=== PATIENT | male | born 1940 | race Hispanic/Latino ===

== ENCOUNTER → 2024-02-03 | Outpatient (CLI) | payer OTHER, MEDICARE | END | disposition home or self-care (01) | LOC: SHCH 10:40 | PROVIDERS: ATTEND Internal Medicine Cardiovascular Disease | DX: I48.0 Paroxysmal atrial fibrillation (principal) | CPT/HCPCS: 93306 ==

== ENCOUNTER 2024-05-09 09:55 | Inpatient (IN) | payer OTHER, MEDICARE ==
[~2024-05-09] VITALS: Ht 167.6 cm; Wt 79.8 kg
--- NOTE | 2024-05-09 10:24 | ERN ---
ED Note History of Present Illness Stated Complaint: COFFEE GROUND EMESIS Chief Complaint: Coffee Ground Emesis Dictation: This is a case of 83-year-old male with a past medical history of CHF, AFib, obesity, dementia, diabetes mellitus type 2, hypertension, lung disease, stroke who was brought to the ER by the EMS with the complaints of 1 episode of coffee- ground emesis, hypotension, shortness of breath since morning and it is also noted that he had similar symptoms in the past. His current medication list shows apixaban 5 mg b.i.d., Plavix 75 mg p.o. daily. Allergies: Coded Allergies: iodine (Unverified Allergy, Unknown, 05/09/24) Past Medical History Past Medical History: A-Fib, CHF, Dementia, Diabetes-Type II, Hypertension, Lung Disease, Stroke, Other Additional Past Medical Hx: OXYGEN DEPENDENCY Surgical History: Unknown Review of System Dictation Constitutional: No appetite loss, No fevers, chills , No night sweats, No weakness, fatigue Neck: No swelling. pain or stiffness Respiratory: No cough, shortness of breath, wheezing Cardiovascular: No chest pain,, palpitations, dyspnea, No edema Gastrointestinal: No abdominal pain, No nausea, vomiting, No diarrhea, constipation Genitourinary: No painful urination, No blood in urine, No urinary incontinence, No frequency or urgency Musculoskeletal: No joint pain, muscle pain, swelling or stiffness, Neurological: No numbness, tingling, No weakness, tremors or seizures Psychiatric: : No depression, No anxiety, No sleep disturbance Not able to get a correct information from the patient as he is a poor historian secondary to dementia and slightly confused Initial Vital Sign VS Vital Signs Date Time Temp Pulse Resp B/P (MAP) Pulse Ox O2 Delivery O2 Flow Rate FiO2 05/09/24 10:00 97.9 88 26 80/42 100 Nasal Cannula* 2 28 Physical Exam Dictation Physical Exam Dictation VITAL SIGNS: Reviewed. GENERAL APPEARANCE: Alert, oriented x3, no acute distress HEAD AND FACE: Non-traumatic. EYES: PERRL, pink conjunctivas, eyelid no trauma NOSE: No discharge, no bleeding. OROPHARYNX: Mouth normal, tongue pink. Pharynx clear, no erythema. Tonsils no exudates, no abscesses noted. Mucous membrane moist. NECK: Supple, non-tender, no thyromegaly, no masses, no JVD, no bruits. BREAST: Deferred. CHEST: No tenderness, no crepitus, no paradoxical movement, no retractions. LUNGS: Bilateral crackles, well-ventilated, symmetric, wheezing, no rhonchi, no stridor HEART: Regular rate, regular rhythm, no murmur, no gallops. VASCULAR: No peripheral edema. ABDOMEN: Soft, positive bowel sounds, nondistended, no guarding, nontender, no rebound, RECTAL: Deferred. GENITAL: Deferred. NEUROLOGICAL: Normal speech, gross motor function intact, gross sensory function intact. MUSCULOSKELETAL: Neck nontender, back nontender EXTREMITIES: Nontender, full range of motion. SKIN: Color pink, dry, no turgor, no rash LYMPHATICS: Deferred. Results (Laboratory/Radiology) Laboratory/Radiology Laboratory Tests Test 05/09/24 10:27 White Blood Count 11.6 K/uL (4.8-10.8) H Red Blood Count 2.56 MIL/uL (4.50-6.20) L Hemoglobin 7.2 g/dL (14.0-18.0) L Hematocrit 22.7 % (42-54) L Mean Corpuscular Volume 88.7 fL (79-99) Mean Corpuscular Hemoglobin 28.1 pg (27.0-33.0) Mean Corpuscular Hemoglobin Concent 31.7 g/dL (32.0-36.0) L Red Cell Distribution Width 17.8 % (11.0-15.5) H Platelet Count 238 K/uL (130-400) Mean Platelet Volume 11.3 fL (7.5-10.5) H Immature Granulocyte % (Auto) 0.6 % (0-1) Neutrophils (%) (Auto) 86.3 % (40.0-77.0) H Lymphocytes (%) (Auto) 8.3 % (21.0-51.0) L Monocytes (%) (Auto) 4.5 % (3.0-13.0) Eosinophils (%) (Auto) 0.1 % (0.0-8.0) Basophils (%) (Auto) 0.2 % (0.0-5.0) Neutrophils # (Auto) 10.0 K/uL (1.8-7.7) H Lymphocytes # (Auto) 1.0 K/uL (1.0-4.8) Monocytes # (Auto) 0.5 K/uL (0.1-1.0) Eosinophils # (Auto) 0.01 K/uL (0.00-0.70) Basophils # (Auto) 0.02 K/uL (0.00-0.20) Absolute Immature Granulocyte (auto 0.07 K/uL (0-1) Nucleated Red Blood Cells 0.0 % (0.0-0.19) White Cell Morphology Comment See comments Prothrombin Time 14.6 SEC (9.6-11.6) H Prothromb Time International Ratio 1.34 (0.85-1.15) H Activated Partial Thromboplast Time 29.1 SEC (26.3-35.5) Sodium Level 141 mmol/L (136-145) Potassium Level 5.4 mmol/L (3.5-5.1) H Chloride Level 104 mmol/L (101-111) Carbon Dioxide Level 24 mmol/L (21-32) Blood Urea Nitrogen 59 mg/dL (7-18) H Creatinine 2.9 mg/dL (0.5-1.3) H Glomerular Filtration Rate Calc 21 mL/min (>90) Random Glucose 151 mg/dL (70-105) H Total Calcium 9.0 mg/dL (8.5-10.1) Total Bilirubin 0.6 mg/dL (0.2-1.0) Aspartate Amino Transf (AST/SGOT) 77 U/L (10-37) H Alanine Aminotransferase (ALT/SGPT) 47 U/L (12-78) Alkaline Phosphatase 141 U/L (50-136) H Total Creatine Kinase 171 U/L (21-232) Troponin I High Sensitivity 1870 ng/L (4-75) *H Total Protein 7.3 g/dL (6.0-8.3) Albumin 2.7 g/dL (3.5-5.0) L EKG Comment: PROCEDURE: EKG - 12 LEAD EKG TRACING- TECHNICAL [facility] Test Date: 2024-05-09 Test Time: 10:31:57 Pat Name: HALLIE BERG Department: [facility] Room: Gender: Male 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 There are bilateral pulmonary infiltrates. Poststernotomy changes are seen. The heart is enlarged. Degenerative changes of the thoracolumbar spine are present. Aortic calcifications are seen. IMPRESSION: 1. Bilateral pulmonary infiltrates. CT Scan Comment: PROCEDURE: ABD PEL WO - CT ABDOMEN/PELVIS W/O CONTRAST CT ABDOMEN/PELVIS W/O CONTRAST HISTORY: Hematemesis COMPARISON: None TECHNIQUE: Multiple sequential axial images of the abdomen and pelvis were obtained from the dome of the diaphragm through symphysis pubis. Patient was not given contrast through intravenous route. Oral contrast was not given. FINDINGS: There are bilateral pleural effusions with compressive atelectasis with left worse than right. Coronary arterial calcifications are seen. There is no evidence of parenchymal disease or pulmonary nodule of the visualized lower lungs. Degenerative changes of the thoracolumbar spine are present. The heart is not enlarged. Liver is enlarged with fatty changes measuring 18.5 cm. Gastric distention is seen. There is small bowel dilatation with fluid-filled. There is diverticulosis. The liver, spleen, adrenal glands and pancreas are unremarkable. There is no evidence of hydronephrosis bilaterally. No evidence of renal stone is seen. Fecal material is seen in the colon. There are normal size retroperitoneal and mesenteric lymph nodes. No ascites is seen. Atherosclerotic changes are present. Appendix is not well visualized. Pelvic sidewalls are symmetric bilaterally. Bladder is poorly distended. IMPRESSION: 1. Bilateral pleural effusions with compressive atelectasis. Gastric distention with small bowel dilatation with fluid-filled may be related to enteritis. Large amount of fecal material is seen in the colon. There is diverticulosis. ED Course ED Course Orders Procedure Category Date Status Time Cbc With Differential LAB 05/09/24 Complete 10:12 Comprehensive LAB 05/09/24 Complete Metabolic Panel 10:12 12 Lead Ekg Tracing- EKG 05/09/24 Complete Technical 10:12 Chest 1vw RAD 05/09/24 Resulted 10:12 Cardiac Panel LAB 05/09/24 Complete 10:12 Pt And Ptt LAB 05/09/24 Complete 10:12 Ct Abdomen/Pelvis W/O CT 05/09/24 Resulted Contrast 10:16 0.9%Nacl 1000ml (Ns PHA 05/09/24 Complete 1000ml) 10:30 Pantoprazole 40mg Inj PHA 05/09/24 Complete (Protonix 40mg Inj 11:00 Blood Cult DARCIE 05/09/24 In Process 10:40 Ceftriaxone 1g Vial PHA 05/09/24 Complete (Rocephine 1g Inj) 11:00 0.9%Nacl 1000ml (Ns PHA 05/09/24 Complete 1000ml) 11:30 Norepinephrin 4mg/Ns PHA 05/09/24 In Process 250ml (Levophed 4mg 11:30 Urinalysis Profile LAB 05/09/24 Logged 11:30 Ipratropium/Albuterol PHA 05/09/24 Complete Neb (Duoneb) 12:00 Current Medications Medications (Trade) Dose Ordered Sig/Rubi Route PRN Reason Start Time Stop Time Status Last Admin Dose Admin Albuterol (DUOneb) 1 UDVIAL ONCE ONCE IH 05/09/24 12:00 05/09/24 12:01 DC 05/09/24 11:51 Ceftriaxone Sodium (ROCEphine 1G INJ) 1 gm ONCE ONCE IVPB 05/09/24 11:00 05/09/24 11:01 DC 05/09/24 11:21 Norepinephrine 250 ml @ 0 mls/hr PROTOCOL IV 05/09/24 11:30 06/08/24 11:29 05/09/24 11:40 Pantoprazole Sodium (PROTonix 40MG INJ) 40 mg ONCE ONCE IVP 05/09/24 11:00 05/09/24 11:01 DC 05/09/24 11:21 Sodium Chloride 1,000 ml @ 0 mls/hr ONCE ONCE IV 05/09/24 10:30 05/09/24 10:31 DC 05/09/24 11:05 Sodium Chloride 1,000 ml @ 0 mls/hr ONCE ONCE IV 05/09/24 11:30 05/09/24 11:27 DC 05/09/24 11:19 Vital Signs Date Time Temp Pulse Resp B/P (MAP) Pulse Ox O2 Delivery O2 Flow Rate FiO2 05/09/24 11:50 104 24 05/09/24 11:40 87/45 05/09/24 11:07 97.9 88 26 88/36 100 Nasal Cannula* 2 28 05/09/24 10:00 97.9 88 26 80/42 100 Nasal Cannula* 2 28 Medical Decision Making [facility] MDM Potential differential diagnoses include: Peptic ulcer disease Esophageal viruses Angiodysplasia Heart failure Coagulopathy Liver cirrhosis Assessment: We will order CBC to rule any anemia, infections and to evaluate the overall health of the patient. CMP was ordered in order to assess various electrolytes, kidney function, liver function ,protein levels and blood glucose levels, CT abdomen /pelvis, chest x-ray, EKG. We will give 1 L NS bolus and Levophed for hypotension. We will start the patient on DuoNeb for hyperkalemia. I will re-evaluate the patient after treatment and diagnostic exams have returned to determine whether they require further testing, can be safely di scharged home, or need admission for further treatment and evaluation. Given the social determinants of health affecting care, including literacy, access to medical care, prescription drug management, and syxm-[id number] drugs, I will ensure that treatment plans are tailored accordingly. Revaluation : Patient is drowsy. Blood pressure increased from 80/30s to 100/50s on Levophed. Labs WBC 11.6, hemoglobin 7.2, potassium 5.4, BUN 59, creatinine 2.9. Troponin levels are elevated at 1870. Chest x-ray resulted in bilateral pulmonary infiltrates and CT abdomen/pelvis resulted in Bilateral pleural effusions with compressive atelectasis. Gastric distention with small bowel dilatation with fluid-filled may be related to enteritis. Large amount of fecal material is seen in the colon. There is diverticulosis. Disposition: Patient is being admitted for further evaluation and treatment in view of suspected GI bleed, elevated troponin levels, hypotension, bilateral pleural effusions with compressive atelectasis. DX & DISP Disposition: Inpatient Departure Impression: Primary Impression: GI bleed Additional Impressions: Bilateral pleural effusion, Anemia, Elevated troponin Critical Time: 30 minutes Condition: Stable Referrals: SHARMAINE JIANG MD (PCP) ATTESTATION BY PHYSICIAN I have seen and examined the patient. I reviewed the documentation, medical decision making, and treatment plan as noted by the resident above. I agree with the findings and plan of care. YOANA PENNINGTON MD, MD May 09, 2024 10:24
--- NOTE | 2024-05-09 10:36 | EKG ---
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
[2024-05-09 10:45] LABS: BASOPHILS # (AUTO) 0.02 K/uL (0.00-0.20); BASOPHILS % (AUTO) 0.2 % (0.0-5.0); EOSINOPHILS # (AUTO) 0.01 K/uL (0.00-0.70); EOSINOPHILS % (AUTO) 0.1 % (0.0-8.0); HEMATOCRIT 22.7 % (42-54); IMMATURE GRANULOCYTE ABSOLUTE 0.07 K/uL (0-1); LYMPHOCYTES % (AUTO) 8.3 % (21.0-51.0); MEAN CORPUSCULAR HEMOGLOBIN 28.1 pg (27.0-33.0); MEAN CORPUSCULAR HGB CONC 31.7 g/dL (32.0-36.0); MEAN CORPUSCULAR VOLUME 88.7 fL (79-99); MONOCYTES # (AUTO) 0.5 K/uL (0.1-1.0); MONOCYTES % (AUTO) 4.5 % (3.0-13.0); NEUTROPHILS % (AUTO) 86.3 % (40.0-77.0); PLATELET COUNT (AUTO) 238 K/uL (130-400); RED BLOOD CELL COUNT(AUTO) 2.56 MIL/uL (4.50-6.20); RED CELL DISTRIBUTION WIDTH 17.8 % (11.0-15.5); WHITE BLOOD COUNT (AUTO) 11.6 K/uL (4.8-10.8)
--- NOTE | 2024-05-09 10:46 | HMCIMG ---
CHEST 1VW HISTORY: Shortness of breath COMPARISON: None FINDINGS: A frontal projection of the chest was obtained. There are bilateral pulmonary infiltrates. Poststernotomy changes are seen. The heart is enlarged. Degenerative changes of the thoracolumbar spine are present. Aortic calcifications are seen. IMPRESSION: 1. Bilateral pulmonary infiltrates.
[2024-05-09 10:58] LABS: INR 1.34 (0.85-1.15); PROTHROMBIN TIME 14.6 SEC (9.6-11.6)
[2024-05-09 10:59] LABS: PARTIAL THROMBOPLASTIN TIME 29.1 SEC (26.3-35.5)
[2024-05-09] MEDS: 0.9%NACL 1000ML 1,000 ML IV ONE ×2 (11:05→11:19)
[2024-05-09 11:07] LABS: ALBUMIN 2.7 g/dL (3.5-5.0); BILIRUBIN,TOTAL 0.6 mg/dL (0.2-1.0); CREATININE 2.9 mg/dL (0.5-1.3); POTASSIUM 5.4 mmol/L (3.5-5.1); TOTAL PROTEIN, SERUM 7.3 g/dL (6.0-8.3)
[2024-05-09] MEDS: cefTRIAXone 1G VIAL IVPB ONE (11:21)
[2024-05-09] MEDS: PANTOPrazole 40 MG/VIAL IVP ONE (11:21)
--- NOTE | 2024-05-09 11:33 | HMCIMG ---
CT ABDOMEN/PELVIS W/O CONTRAST HISTORY: Hematemesis COMPARISON: None TECHNIQUE: Multiple sequential axial images of the abdomen and pelvis were obtained from the dome of the diaphragm through symphysis pubis. Patient was not given contrast through intravenous route. Oral contrast was not given. FINDINGS: There are bilateral pleural effusions with compressive atelectasis with left worse than right. Coronary arterial calcifications are seen. There is no evidence of parenchymal disease or pulmonary nodule of the visualized lower lungs. Degenerative changes of the thoracolumbar spine are present. The heart is not enlarged. Liver is enlarged with fatty changes measuring 18.5 cm. Gastric distention is seen. There is small bowel dilatation with fluid-filled. There is diverticulosis. The liver, spleen, adrenal glands and pancreas are unremarkable. There is no evidence of hydronephrosis bilaterally. No evidence of renal stone is seen. Fecal material is seen in the colon. There are normal size retroperitoneal and mesenteric lymph nodes. No ascites is seen. Atherosclerotic changes are present. Appendix is not well visualized. Pelvic sidewalls are symmetric bilaterally. Bladder is poorly distended. IMPRESSION: 1. Bilateral pleural effusions with compressive atelectasis. Gastric distention with small bowel dilatation with fluid-filled may be related to enteritis. Large amount of fecal material is seen in the colon. There is diverticulosis. CT was performed with one or more following dose reduction techniques: automated exposure control, adjustment of the mA and kv according to patient's size, or use of a iterative reconstruction technique.
[2024-05-09] MEDS: NOREPINEPHRIN 4MG/NS 250ML 250 ML IV SCH (11:40)
[2024-05-09 11:50] VITALS: PULSE 104; RESP 24
[2024-05-09] MEDS: IpraTROPium/alBUTERol SULFATE 3 ML SOLUTION IH ONE (11:51)
--- NOTE | 2024-05-09 12:54 | NUR ---
NEXT OF KIN SANJEEV NELSONNIZ CONTACTED TO VERY DNR STATUS. NEXT OF KIN VERBALIZES FULL CODE STATUS. PHONE CALL VERIFIED WITH AMBER CABRERA RN.
[2024-05-09] MEDS ORDERED: KETO200T11 PO (13:23)
[2024-05-09] MEDS ORDERED: NIFE-79 PO (13:23)
[2024-05-09] MEDS ORDERED: COLL30OI TP (13:23)
[2024-05-09] MEDS ORDERED: FERS325 PO (13:23)
[2024-05-09] MEDS ORDERED: CLOT15CR23 TP (13:23)
[2024-05-09] MEDS ORDERED: NYST200P MC (13:23)
[2024-05-09] MEDS ORDERED: ASPI-1197 PO (13:23)
[2024-05-09] MEDS ORDERED: DOCU100C33 PO (13:23)
[2024-05-09] MEDS: octREOtide aceTATe 1,250 MCG in 0.9% NACL 250ML 250 ML IV SCH (13:57)
[2024-05-09] MEDS: DEXTROSE 5 %-0.45 % NACL 1,000 ML IV SCH (14:19)
--- NOTE | 2024-05-09 15:20 | NUR ---
CONSENT FOR BLOOD ADMINISTRATION PROVIDED VIA TELEPHONE BY SANJEEV BERG. WITNESS PRESENT SCAR DUNCAN
[2024-05-09 15:26] LABS: HEMATOCRIT 21.3 % (42-54)
[2024-05-09] MEDS: INSULIN humuLIN R 100 UNIT/ML 3ML SQ SCH (16:30)
--- NOTE | 2024-05-09 17:08 | CONS ---
[facility] CONSULTATION NOTE Date Patient Seen: May 09, 2024 Time of Visit: 17:08 Supervising Physician: Dr. London Reason for Consultation: GI bleed/hypotension Primary Care Physician: Dr. Sylvia Lane Outpatient Specialists: Parking Control Officer: Angel Diaz MD Inpatient Consults: Cardiology PROBLEM LIST: Acute GI bleed POA, probably secondary to oral anticoagulation therapy. . Acute blood loss anemia Acute sepsis from unknown source POA. Cardiogenic shock POA. Acute constipation POA. Acute on chronic combined systolic and diastolic congestive heart failure Paroxysmal atrial fibrillation on chronic anticoagulation with Eliquis, to be on hold Hyperkalemia. HTN HLD DM2 CKD stage IIIB CAD s/p CABG in the remote past Recurrent CVAs JACK hx R CEA Pulmonary hypertension Dementia HPI: This is a 83-year-old male patient who is not a good historian due to his current condition, age in mental status. He resides at a local nursing home facility [facility]. The patient has past medical history that is significant for HTN, HLD, DM2, CKD stage IIIB, CAD s/p CABG ecurrent CVA with new onset right side weakness, JACK hx R CEA, Paroxysmal atrial fibrillation on chronic anticoagulation with Eliquis, chronic combined systolic/diastolic heart failure, NSTEMI, and dementia. The patient was sent from the nursing home facility via EMS due to report of coffee-ground emesis and abdominal discomfort. Upon entry to the emergency department, vital signs was significant for hypotension systolic of 80/42 that had started since the morning. Of note, the patient is on anticoagulation therapy with apixaban and antiplatelet therapy with Plavix which may have been the culprit. ED workup showed laboratory data indicating a WBC of 11.6, H&H 7.24/22.7 and a platelet count of 238. Chemistry panel was significant for a elevated potassium of 5.4, BUN 59, creatinine of 2.9 and a GFR of 21. Keaton troponin of 1870 and a BNP of 1140. Imaging of the chest showed bilateral pulmonary infiltrates and abdomen showed bilateral pleural effusions with compressive atelectasis. Gastric distention with small bowel dilatation and fluid filled may be related to enteritis. There was large amount of fecal material seen in the colon and there was also presence of diverticulosis. Because of the above findings, the patient was admitted for further inpatient evaluation and management of his condition. BIS grease remover was consulted due to the GI bleed with subsequent hypotension requiring vasopressor therapy. PAST MEDICAL HX: see above PAST SURGICAL HX: Appendectomy Balloon angioplasty to the IRS within the right M2 segment Cerebral angiogram Intracranial stenting Right carotid endarterectomy Coronary artery bypass grafting in 2009 SOCIAL HISTORY: No tobacco, ETOH, or illicit drug use. SNF resident. Coded Allergies: iodine (Unverified Allergy, Unknown, 05/09/24) REVIEW OF SYSTEMS: 12 point ROS reviewed with patient. Pertinent positives mentioned above. Otherwise negative. PHYSICAL EXAM: GENERAL: alert, weak, awake oriented x 3 HEENT: EOMI, Sclera non icteric, moist mucosa NECK: Supple, no JVD, trachea midline LUNGS: Diminished lung sounds. No wheezes HEART: Regular rate and rhythm. Normal S1 and S2, without murmurs ABD: Abdomen soft, nontender. Bowel sounds present EXT: No clubbing cyanosis or edema NEURO: Alert and oriented to person, able to follow simple commands Vital Signs (last 8hr) Date Time Temp Pulse Resp B/P (MAP) Pulse Ox O2 Delivery O2 Flow Rate FiO2 05/09/24 16:00 97.9 100 18 103/46 Nasal Cannula* 2 28 05/09/24 15:00 100 18 93/49 Nasal Cannula* 2 28 05/09/24 14:00 98 18 112/46 98 Nasal Cannula* 2 28 05/09/24 13:45 109 18 110/45 Nasal Cannula* 2 28 05/09/24 13:30 108 18 110/51 Nasal Cannula* 2 28 05/09/24 13:00 108 18 105/48 Nasal Cannula* 2 28 05/09/24 12:25 106 18 105/53 Nasal Cannula* 2 28 05/09/24 12:10 106 24 103/50 Nasal Cannula* 2 28 05/09/24 11:55 97.9 95 24 105/45 Nasal Cannula* 2 28 05/09/24 11:50 104 24 05/09/24 11:40 82 26 87/45 100 Nasal Cannula* 2 28 05/09/24 11:40 87/45 05/09/24 11:07 97.9 88 26 88/36 100 Nasal Cannula* 2 28 05/09/24 10:00 97.9 88 26 80/42 100 Nasal Cannula* 2 28 LABS: Hematology Labs: Test 05/09/24 15:18 05/09/24 10:27 Range/Units Hemoglobin 6.6 *L 14.0-18.0 g/dL Hematocrit 21.3 L 42-54 % White Blood Count 11.6 H 4.8-10.8 K/uL Red Blood Count 2.56 L 4.50-6.20 MIL/uL Mean Corpuscular Volume 88.7 79-99 fL Mean Corpuscular Hemoglobin 28.1 27.0-33.0 pg Mean Corpuscular Hemoglobin Concent 31.7 L 32.0-36.0 g/dL Red Cell Distribution Width 17.8 H 11.0-15.5 % Platelet Count 238 130-400 K/uL Mean Platelet Volume 11.3 H 7.5-10.5 fL Immature Granulocyte % (Auto) 0.6 0-1 % Neutrophils (%) (Auto) 86.3 H 40.0-77.0 % Lymphocytes (%) (Auto) 8.3 L 21.0-51.0 % Monocytes (%) (Auto) 4.5 3.0-13.0 % Eosinophils (%) (Auto) 0.1 0.0-8.0 % Basophils (%) (Auto) 0.2 0.0-5.0 % Neutrophils # (Auto) 10.0 H 1.8-7.7 K/uL Lymphocytes # (Auto) 1.0 1.0-4.8 K/uL Monocytes # (Auto) 0.5 0.1-1.0 K/uL Eosinophils # (Auto) 0.01 0.00-0.70 K/uL Basophils # (Auto) 0.02 0.00-0.20 K/uL Absolute Immature Granulocyte (auto 0.07 0-1 K/uL Nucleated Red Blood Cells 0.0 0.0-0.19 % White Cell Morphology Comment See comments Chemistry Labs: Test 05/09/24 15:18 05/09/24 10:27 Range/Units Troponin I High Sensitivity 3253 *H 4-75 ng/L B-Type Natriuretic Peptide 1140 H 0-100 pg/mL Sodium Level 141 136-145 mmol/L Potassium Level 5.4 H 3.5-5.1 mmol/L Chloride Level 104 101-111 mmol/L Carbon Dioxide Level 24 21-32 mmol/L Blood Urea Nitrogen 59 H 7-18 mg/dL Creatinine 2.9 H 0.5-1.3 mg/dL Glomerular Filtration Rate Calc 21 >90 mL/min Random Glucose 151 H 70-105 mg/dL Total Calcium 9.0 8.5-10.1 mg/dL Total Bilirubin 0.6 0.2-1.0 mg/dL Aspartate Amino Transf (AST/SGOT) 77 H 10-37 U/L Alanine Aminotransferase (ALT/SGPT) 47 12-78 U/L Alkaline Phosphatase 141 H 50-136 U/L Total Creatine Kinase 171 21-232 U/L Total Protein 7.3 6.0-8.3 g/dL Albumin 2.7 L 3.5-5.0 g/dL Coagulation Labs: Test 05/09/24 10:27 Range/Units Prothrombin Time 14.6 H 9.6-11.6 SEC Prothromb Time International Ratio 1.34 H 0.85-1.15 Activated Partial Thromboplast Time 29.1 26.3-35.5 SEC DIAGNOSTICS / RADIOLOGY RESULTS: [ ] PLAN The patient was admitted and BAL was consulted for ICU upgrade. The patient was started on Levophed. In the emergency department, the patient did receive fluid resuscitation with IV NS 1 L bolus. The patient did receive a dose of IV Rocephin. I am going to continue with IV cefepime, we will request blood cultures x2. We will request a MRSA nasal swab. We will order additional vasopressor therapy if hypotension persists. We will monitor the H&H and we will transfuse as necessary. Orders are in place for occult blood in stool. The patient will remain nothing by mouth. We will monitor the trend and maintain map above 65. We will follow the troponins x2 more sets. Cardiology consult is in place as well as Nephrology consultation. Patient was started on antibiotic therapy. Going to repeat surveillance labs in the morning. We will continue provide general supportive care, GI and DVT prophylaxis. Further orders per attending MD and hospital course. NEURO: Minimize central acting medications as possible. Fall Precautions. Well lighted room through the day and minimize interruptions through the night to prevent acute delirium. PULMONARY: Supplemental 02 as needed Titrate Fio2 to keep Spo2 > or = 90% DuoNebs and CPT as needed IS hourly while awake for pulmonary hygiene Out of bed to chair as tolerated CARDIOVASCULAR: Follow hemodynamics. Titrate vasopressor to keep MAP >65 or systolic blood pressure >95mmHg DIPS: Levophed LINES: Peripheral IVs GI & NUTRITION: Continue nutritional support Aspirations precautions Prokinetic agents and laxatives as needed KIDNEYS & ELECTROLYTES: Strict monitoring of intake and output Daily weights Avoid nephrotoxic agents Monitor electrolytes and replace as needed Goal urine output of 30mL/hr or 0.5mL/kg/hr Urine output: [ ] Fluid Balance: [ ] ENDOCRINE: Maintain blood glucose between 100-180 at all times. Insulin sliding scale for blood glucose management INFECTIOUS DISEASE: Trend temperature. Zapata-culture if febrile. Micro: Blood cultures to be sent and pending UA. Antibiotics: Cefepime 1 g daily HEMATOLOGY & COAGULATION: Monitor H&H. Keep Hgb > 7 Transfuse 1 unit of PRBC for Hgb < 7 Transfuse 1 pack of platelets of platelets < 20, 000 Watch for any signs and symptoms of bleeding SKIN: Pressure ulcer prevention per facility protocol Rehab: PT/OT once acute phase has been stabilized. Prophylaxis: GI: Protonix DVT: Not a candidate for systemic anticoagulation Code Status: Full Resuscitation Disposition: ICU Case was discussed and seen with my supervising physician. The above plan was formulated and agreed upon. Total critical care time: 35 min CARLOS MANUEL NOE NP May 09, 2024 17:08 MARGARITA BUNCH MD May 10, 2024 14:29
--- NOTE | 2024-05-09 19:31 | NUR ---
PATIENT IS BEING RUDE AND VERBALLY ABUSIVE TOWARDS STAFFS. REFUSED LARA CATHETER INSERTION.
--- NOTE | 2024-05-09 19:56 | NUR ---
CRITICAL CARE CONSULT DONE BY DIPAK ABBOTT, SPOKEN TO JUNIOR VIA PHONE
[2024-05-09] MEDS: PANTOPrazole 40 MG/VIAL IVP SCH (20:01)
--- NOTE | 2024-05-09 20:23 | CONS ---
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 (08/06/2018), initially treated with IV TPA, post-thrombolytics cerebral angiogram identified severe stenosis of the middle cerebral artery M2 segment, s/p intracerebral angioplasty with [place] balloon (1.5mm x 15 mm) and intracerebral stenting with Wingspan stent (2.5 mm x 15 mm) to right inferior MCA M2 segment (08/10/2018), TIA in September 2019, JACK hx R CEA, paroxysmal atrial fibrillation on chronic anticoagulation with Eliquis, hospitalization in 01/2024 at [facility] for hematemesis, 2D echo on 04/09/2024 demonstrated an EF of 55%, moderately dilated left atrium, moderate MR, and RSVP of 42 mmHg, recent hospitalization at [facility] on 04/18/2024 for acute on chronic combined systolic and diastolic heart failure and NSTEMI which was medically managed due to debilitated state and dementia who presented to the ED by EMS with complaints of one episode of coffee-ground emesis, nausea and abdominal discomfort. The patient was hypotensive on admission with a blood pressure of 80/42 mmHg and was started on a norepinephrine drip. Chest x-ray demonstrated bilateral pulmonary infiltrates. CT of the abdomen demonstrated gastric distention distention with small bowel dilatation. Cardiology has been consulted for elevated troponin. EKG on admission demonstrated atrial fibrillation with a heart rate of 85bpm, ST depressions in V2-4, and old inferior infarct. The patient is a poor historian. HPI has been obtained from medical and clinic records. The patient currently denies chest pain, chest pressure, or palpitations, but admits to abdominal discomfort. Troponin 1870 and 3253. BNP 1140. Significant laboratories: WBC of 11.6, hemoglobin 7.2, hematocrit 22.7, BUN 59, creatinine 2.9, GFR 21, Potassium 5.4, AST 77, alkaline phosphatase 141, Drop in hemoglobin to 6.6 and hematocrit of 21.3. Past Medical History: As per HPI and summarized below Past Surgical History: Appendectomy Intracranial stenting : (Wingspan 2.5x15 mm) in the right inferior MCA M2 segment done on 08/10/2018, s/p balloon angioplasty to the IRS within the right M2 segment done on 09/07/2019, s/p cerebral angiogram done on 01/30/2020 which identified a patent stent within the right M2 and > 80% stenosis in the left pericallosal artery Right carotid endarterectomy Coronary artery bypass grafting in 2008 Family History: Noncontributory Social History: The patient is a resident at [facility]. Habits: snf resident there is no note of alcohol illicit drug or tobacco use. Home Meds: Aspirin 81 mg daily Nifedipine 60 mg daily Ferrous sulfate 325 mg daily Docusate sodium 100 mg daily Ketoconazole 200 mg daily Clotrimazole 1% topical apply daily Santyl apply daily Nystatin powder b.i.d. Current Meds: Current Medications Medications Dose Ordered Sig/Rubi Start Time Stop Time Status Last Admin Norepinephrine 250 ml @ 0 mls/hr PROTOCOL 05/09/24 11:30 06/08/24 11:29 05/09/24 11:40 Insulin Human Regular INSULIN SLIDING SCAL... ACHS 05/09/24 16:30 06/08/24 16:29 Octreotide Acetate 1250 mcg/ Sodium Chloride 250 ml @ 0 mls/hr PROTOCOL 05/09/24 12:30 06/08/24 12:29 05/09/24 14:09 Pantoprazole Sodium 40 mg BID 05/09/24 21:00 06/08/24 20:59 Dextrose/Sodium Chloride 1,000 ml @ 50 mls/hr Q20H 05/09/24 12:30 06/08/24 12:29 05/09/24 14:19 Review of Systems: Unable to obtain a review of system as the patient has dementia Physical Examination: GENERAL: No acute distress. HEAD: Normal with no signs of head trauma. EYES: PERRLA, EOMI, conjunctiva and sclera normal. ENT: Hearing grossly intact, normal oropharynx. NECK: Supple without JVD. There is no tenderness, lymphadenopathy, or masses. No thyromegaly. Normal carotid upstrokes without bruits. LUNGS: Diminished bases heard anteriorly. HEART: Normal rate and rhythm. Normal S1 and S2. Left foot dorsal region with dressing. 3/6 systolic ejection murmur heard at the left 5th intercostal space VASC: Unable to palpate bilateral DP pulses. ABD: Bowel sounds normal, soft, nontender, no masses, no organomegaly. No audible bruits. : Not examined LYMPH: No lymphadenopathy noted. EXT: No clubbing, cyanosis or edema. SKIN: No rashes or lesions noted. NEURO: Awake and alert. Poor memory. Vital Signs (last 8hr) Date Time Temp Pulse Resp B/P (MAP) Pulse Ox O2 Delivery O2 Flow Rate FiO2 05/09/24 18:45 98.1 92 25 110/40 Nasal Cannula* 2 05/09/24 18:15 98.1 103 20 109/49 Nasal Cannula* 2 28 05/09/24 18:00 98.1 106 20 106/51 Nasal Cannula* 2 05/09/24 17:45 98.1 106 15 107/57 Nasal Cannula* 2 05/09/24 17:30 98.2 109 15 113/49 98 Nasal Cannula* 2 05/09/24 17:00 100 18 92/48 Nasal Cannula* 2 05/09/24 16:30 106 18 92/48 Nasal Cannula* 2 05/09/24 16:15 108 18 90/46 Nasal Cannula* 2 05/09/24 16:00 97.9 100 18 98/48 Nasal Cannula* 2 05/09/24 15:00 100 18 93/49 Nasal Cannula* 2 05/09/24 14:00 98 18 112/46 98 Nasal Cannula* 2 05/09/24 13:45 109 18 110/45 Nasal Cannula* 2 05/09/24 13:30 108 18 110/51 Nasal Cannula* 2 28 05/09/24 13:00 108 18 105/48 Nasal Cannula* 2 28 05/09/24 12:25 106 18 105/53 Nasal Cannula* 2 05/09/24 12:10 106 24 103/50 Nasal Cannula* 2 05/09/24 11:55 97.9 95 24 105/45 Nasal Cannula* 2 05/09/24 11:50 104 24 05/09/24 11:40 82 26 87/45 100 Nasal Cannula* 2 05/09/24 11:40 87/45 Laboratory: Hematology Labs: Test 05/09/24 15:18 05/09/24 10:27 Range/Units Hemoglobin 6.6 *L 14.0-18.0 g/dL Hematocrit 21.3 L 42-54 % White Blood Count 11.6 H 4.8-10.8 K/uL Red Blood Count 2.56 L 4.50-6.20 MIL/uL Mean Corpuscular Volume 88.7 79-99 fL Mean Corpuscular Hemoglobin 28.1 27.0-33.0 pg Mean Corpuscular Hemoglobin Concent 31.7 L 32.0-36.0 g/dL Red Cell Distribution Width 17.8 H 11.0-15.5 % Platelet Count 238 130-400 K/uL Mean Platelet Volume 11.3 H 7.5-10.5 fL Immature Granulocyte % (Auto) 0.6 0-1 % Neutrophils (%) (Auto) 86.3 H 40.0-77.0 % Lymphocytes (%) (Auto) 8.3 L 21.0-51.0 % Monocytes (%) (Auto) 4.5 3.0-13.0 % Eosinophils (%) (Auto) 0.1 0.0-8.0 % Basophils (%) (Auto) 0.2 0.0-5.0 % Neutrophils # (Auto) 10.0 H 1.8-7.7 K/uL Lymphocytes # (Auto) 1.0 1.0-4.8 K/uL Monocytes # (Auto) 0.5 0.1-1.0 K/uL Eosinophils # (Auto) 0.01 0.00-0.70 K/uL Basophils # (Auto) 0.02 0.00-0.20 K/uL Absolute Immature Granulocyte (auto 0.07 0-1 K/uL Nucleated Red Blood Cells 0.0 0.0-0.19 % White Cell Morphology Comment See comments Chemistry Labs: Test 05/09/24 15:18 05/09/24 10:27 Range/Units Troponin I High Sensitivity 3253 *H 4-75 ng/L B-Type Natriuretic Peptide 1140 H 0-100 pg/mL Sodium Level 141 136-145 mmol/L Potassium Level 5.4 H 3.5-5.1 mmol/L Chloride Level 104 101-111 mmol/L Carbon Dioxide Level 24 21-32 mmol/L Blood Urea Nitrogen 59 H 7-18 mg/dL Creatinine 2.9 H 0.5-1.3 mg/dL Glomerular Filtration Rate Calc 21 >90 mL/min Random Glucose 151 H 70-105 mg/dL Total Calcium 9.0 8.5-10.1 mg/dL Total Bilirubin 0.6 0.2-1.0 mg/dL Aspartate Amino Transf (AST/SGOT) 77 H 10-37 U/L Alanine Aminotransferase (ALT/SGPT) 47 12-78 U/L Alkaline Phosphatase 141 H 50-136 U/L Total Creatine Kinase 171 21-232 U/L Total Protein 7.3 6.0-8.3 g/dL Albumin 2.7 L 3.5-5.0 g/dL Coagulation Labs: Test 05/09/24 10:27 Range/Units Prothrombin Time 14.6 H 9.6-11.6 SEC Prothromb Time International Ratio 1.34 H 0.85-1.15 Activated Partial Thromboplast Time 29.1 26.3-35.5 SEC Diagnostics / Radiology: Impression and Plan: NSTEMI, Type II CA Acute on chronic combined systolic and diastolic congestive heart failure Anemia, Eliquis on hold Small bowel dilatation Paroxysmal atrial fibrillation on chronic anticoagulation with Eliquis HTN HLD DM2 CKD stage IIIB CAD s/p CABG (approximately [id number] in [place]) CVAs, TIA, intracranial stenting JAKC hx R CEA Pulmonary hypertension Dementia Wheelchair-bound NSTEMI type 2 CA EKG on admission demonstrated atrial fibrillation with a heart rate of 85bpm, ST depressions in V2-4, and old inferior infarct Troponin 1870 and 3253 2D echo on 04/09/2024 demonstrated an EF of 55%, moderately dilated left atrium, moderate MR, and RSVP of 42 mmHg Recent hospitalization at [facility] on 04/18/2024 for acute on chronic combined systolic and diastolic heart failure and NSTEMI which was medically managed due to debilitated state and dementia -The patient is not a candidate for beta raeann therapy due to need for vasopressor support -The patient is not a candidate for ACS treatment such as a Heparin drip, aspirin, or antiplatelet therapy due to anemia with a Hgb of 6.6 and Hct of 21.3 -LFTs in the AM, if normalized initiate statin therapy -EKG in AM -Obtain 2D Echo to evaluate LV function -No plans for ischemic evaluation of the coronary anatomy Acute on chronic combined systolic and diastolic congestive heart failure BNP 1140 Chest x-ray demonstrated bilateral pulmonary infiltrates -At this time, the patient is not a candidate for GDMT initiation due to need of vasopressor support -Reevaluate the patient in the am for diuretic initiation, he has received 2 L of normal saline while in ED and initiated on D5-0.45% NaCL at 50 mL an hour COLLIN LOUIE ESCROW MANAGER May 09, 2024 20:23
[2024-05-09] MEDS: VASOpressin 20 UNITS/ML 1ML Vi 20 UNITS in 0.9%NACL 100ML 100 ML IV SCH (21:17)
[2024-05-09] MEDS: VASOpressin 20 UNITS/ML 1ML VIAL ONE (21:46)
[2024-05-09] MEDS: ceFEPime HCL 1 GM VIAL IVPB SCH (22:00)
[2024-05-09] MEDS: ceFEPime HCL 1 GM VIAL ONE (22:02)
[2024-05-09 22:45] VITALS: BP 90/36
[2024-05-09 23:00] VITALS: BP 100/44; PULSE 103; RESP 24; TEMP 97.7
[2024-05-09 23:15] VITALS: BP 91/44; PULSE 108; RESP 24
[2024-05-09 23:30] VITALS: BP 103/44; PULSE 111; RESP 29
[2024-05-09 23:45] VITALS: BP 109/51; PULSE 100; RESP 23
[2024-05-10] VITALS (93 sets, daily range): BP systolic 79–163; BP diastolic 30–63; PULSE 84–115; RESP 8–38; TEMP 97.9–98.8; O2SAT 98–99
--- NOTE | 2024-05-10 01:16 | HP ---
DATE OF SERVICE: 05/09/2024 HISTORY AND PHYSICAL PRESENTING COMPLAINT: Coffee-ground emesis and weakness. HISTORY OF PRESENT ILLNESS: This is an 83-year-old male with history of CHF, diabetes mellitus, hypertension, atrial fibrillation, on anticoagulation, who was brought in from retirement with coffee-ground emesis. The patient has no fever or chills. The patient noticed multiple episodes of vomiting, was sent to the Emergency Room for further evaluation. The patient in the ER found with hemoglobin of 7.2. Troponin was elevated at 1870. The patient is awake but a poor historian. The patient has had recurrent admissions for NSTEMI. The patient sometime last month, was seen by Cardiology. The patient was found not to be a candidate for cardiac catheterization and medical management was recommended. PAST MEDICAL HISTORY: * Diabetes mellitus. * Urinary tract infection. * Chronic renal disease. * Hypertension. * Atrial fibrillation. * CVA. * Dementia. * Sacrococcygeal ulcer. * Myocardial infarction. PAST SURGICAL HISTORY: * CABG. * Multiple cerebral angiograms, right MCA angioplasty and stenting. * Right carotid endarterectomy. * Cardiac catheterization. ALLERGIES: IODINE. CURRENT MEDICATIONS: Reviewed. SOCIAL HISTORY: , lives at the retirement. No alcohol, tobacco or illicit drug use. FAMILY HISTORY: Positive for diabetes mellitus. REVIEW OF SYSTEMS: Available history obtained from ER note. The patient has dementia. PHYSICAL EXAMINATION: GENERAL: Elderly male, awake, ill looking. VITAL SIGNS: Temperature 37.9, pulse 95, respiratory rate 24, BP 105/45. EYES: No icterus. Pupils equal and reactive. HENT: No oral thrush seen. Moist oral mucosa. NECK: Supple, no JVD or thyromegaly. LUNGS: Good air entry. No rales, no rhonchi. CARDIOVASCULAR: S1, S2, regular. No murmur heard. ABDOMEN: Full, soft, nontender. Bowel sounds present. CENTRAL NERVOUS SYSTEM: The patient is awake, confused. SKIN: No rashes, no itchiness. LYMPHATIC: No peripheral lymphadenopathy. BACK: No deformity. Stage III ulcer in the sacrococcygeal area. EXTREMITIES: Ulcer involving the right lower leg. LABORATORY DATA: Troponin 1870. Sodium 141, potassium 5.4, BUN 59, creatinine 2.9. WBC 11.2, hemoglobin 7.2, platelet count 238. RADIOLOGY: Chest x-ray showed bilateral infiltrate. CT of the abdomen shows gastric distention. ASSESSMENT: An 83-year-old male brought in from retirement with coffee-ground emesis. PROBLEMS: Include: * Gastrointestinal bleed. * Bdu-DV-mtdhftrvl myocardial infarction. * Bmsow-uh-tgxgjkf renal failure. * Stage II sacrococcygeal ulcer. * . * Hyperkalemia. * Anemia. * Dementia. PLAN: * The patient will be admitted to ICU. * Continue Levophed. * The patient will be placed on Protonix. * The patient will be placed on octreotide. *The patient was given 1 unit of PRBC. * Nephrology evaluation. * Gastroenterology evaluation. The patient made n.p.o. for now. * Monitor hemoglobin and hematocrit. * Monitor blood glucose. TID: [id number] RECEIPT: [id number] MTDD
[2024-05-10 04:03] LABS: BASOPHILS # (AUTO) 0.02 K/uL (0.00-0.20); BASOPHILS % (AUTO) 0.1 % (0.0-5.0); HEMATOCRIT 22.4 % (42-54); IMMATURE GRANULOCYTE ABSOLUTE 0.13 K/uL (0-1); LYMPHOCYTES # (AUTO) 0.9 K/uL (1.0-4.8); MEAN CORPUSCULAR HEMOGLOBIN 28.6 pg (27.0-33.0); MEAN CORPUSCULAR VOLUME 86.5 fL (79-99); MONOCYTES # (AUTO) 1.5 K/uL (0.1-1.0); NEUTROPHILS % (AUTO) 86.2 % (40.0-77.0); NUCLEATED RED BLOOD CELLS 0.2 % (0.0-0.19); PLATELET COUNT (AUTO) 242 K/uL (130-400); RED BLOOD CELL COUNT(AUTO) 2.59 MIL/uL (4.50-6.20); RED CELL DISTRIBUTION WIDTH 17.2 % (11.0-15.5); WHITE BLOOD COUNT (AUTO) 18.6 K/uL (4.8-10.8)
[2024-05-10 04:19] LABS: ALBUMIN 2.2 g/dL (3.5-5.0); BILIRUBIN,TOTAL 0.7 mg/dL (0.2-1.0); CREATININE 3.4 mg/dL (0.5-1.3); MAGNESIUM 1.9 mg/dL (1.80-2.40); POTASSIUM 5.2 mmol/L (3.5-5.1); TOTAL PROTEIN, SERUM 5.9 g/dL (6.0-8.3)
--- NOTE | 2024-05-10 09:19 | EKG ---
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 : 1940 Requested By: COLLIN LOUIE Order Number: [id number] Reading MD: Lorena Chavez Measurements Intervals [place] Rate: 104 P: 0 [place]: 0 QRS: -67 QRSD: 118 T: 108 QT: 346 QTc: 454 Interpretive Statements Atrial fibrillation with rapid ventricular response with premature ventricular or aberrantly conducted complexes Left axis deviation Low voltage QRS Inferior-posterior infarct , age undetermined Compared to ECG 05/09/2024 10:31:57 Ventricular premature complex(es) now present Left-axis deviation now present Low QRS voltage now present T-wave abnormality no longer present Myocardial infarct finding still present Electronically Signed On 05-11-2024 08:16:48 SECURITY SYSTEM INSTALLER by Lorena Chavez Please click the below link to view image of tracing.
--- NOTE | 2024-05-10 10:24 | HMCSR ---
APPROVED REPORT EXAM: Two-dimensional and M-mode echocardiogram with Doppler and color Doppler. INDICATION ICD: Non ST-elevation WA I21.4 2D Dimensions RVDd5.1 cmLVEF(%)35.2 (>50%)LVED Vol(simp.)169.0 mL IVSd1.0 (0.7-1.1cm)FS(%)17 %LVES Vol(simp.)117.0 mL LVDd4.2 (3.8-5.6cm)LA (2D)5.0 (1.6-4.0cm)LVEF(%, simp.)31 % PWd1.4 (0.7-1.1cm)Ao Root(2D)3.3 (2.0-3.7cm)LA ESV INDEX (4CH)49.50 mL/m2 IVSs1.4 cmLVOT diam2.0 (1.8-2.4cm)LA ESV INDEX (2CH)48.50 mL/m2 LVDs3.5 (2.5-4.0cm)LA ESV INDEX (BP)50.30 mL/m2 PWs1.6 cm M-Mode Dimensions EPSS1.6 cm LA (MM)4.5 (1.6-4.0cm) Ao Root(MM)3.8 (2.0-3.7cm) Aortic Valve AoV VTI0.1 mAo Mean GR2.0 mmHgLVOT VTI0.14 m DUNCAN (VMAX)3.0 cm2AVA (VTI) 3.0 cm2 Mitral Valve MV E Pdbk361.0 cm/sDECEL Time56 msMR VTI85 cm2 MV A Vmax33.1 cm/s E/A ratio3.6 MR Max PG78 mmHg TDI E/E' Jklrgs13.3E/E' Ctbagmj77.8 Medial E' Peak V5.80 cm/sLateral E' Peak V8.00 cm/s Tricuspid Valve TR Vmax3.1 m/s TR Peak GR38.0 mmHg Left Ventricle Left ventricular cavity size is normal. There is normal left ventricular wall thickness. LVEF is 30-3 5%. E-a fusion. Right Ventricle The right ventricle is severely dilated. Right ventricular systolic function is mildly to moderately reduced. Atria The left atrium is severely dilated. The right atrium is moderately dilated. Aortic Valve Aortic valve leaflets are calcified with poor systolic excursion, valve is not well seen. No aortic r egurgitation is present. There is no aortic valvular stenosis. Mitral Valve The mitral valve is mildly thickened. There is moderate mitral valve regurgitation noted with an ecce ntric jet toward the posterior left atrium. There is no mitral valve stenosis. Tricuspid Valve The tricuspid valve is normal in structure. There is mild tricuspid valve regurgitation noted. Pulmonic Valve The pulmonary valve is normal in structure. There is no pulmonic valvular regurgitation. Great Vessels The aortic root is normal in size. Due to poor image quality, the IVC could not be assessed. Pericardium There is no pericardial effusion. Conclusion Left ventricular cavity size is normal.LVEF is 30-35%. E-a fusion. The right ventricle is severely dilated.Right ventricular systolic function is mildly to moderately r educed. The left atrium is severely dilated.The right atrium is moderately dilated. Aortic valve leaflets are calcified with poor systolic excursion. No stenosis. There is moderate mitral valve regurgitation noted with an eccentric jet toward the posterior left at rium. There is mild tricuspid valve regurgitation noted. There is no pericardial effusion.
[2024-05-10] MEDS: LACTULOSE 20 GM/30 ML UDCUP PO PRN (10:58)
--- NOTE | 2024-05-10 11:24 | PN ---
INFECTIOUS DISEASE PROGRESS NOTE Date of Service: May 10, 2024 SUBJECTIVE: This is an 83-year-old male patient who [facility] for chief complaint of coffee-ground emesis and weakness. On admission patient was hypotensive with BP of 80s/40s and was admitted to the ICU for vasopressor support. Patient was seen and examined in the ICU room 218. Patient was transfused 1 unit of PRBC yesterday for a hemoglobin of 6.6. Hemoglobin this morning is 7.4. Patient has been evaluated by Gastroenterology and is pending an EGD. Patient continues on vasopressor support. A chest x-ray showed bilateral pulmonary infiltrates. The WBC remains high at 18.6 but no fever, temperature is 97.9. We will discontinue cefepime and start patient on Meropenem 1 g IV every12 hours. We will continue to monitor patient's care. PHYSICAL EXAM EYES: Anicteric. Pupils equal and reactive. HENT: No oral thrush seen, moist Oral mucosa. NECK: Supple, no JVD or thyromegaly. LUNGS: Good air entry. No rales, no rhonchi. Oxygen support. CARDIOVASCULAR: S1, S2 regular. No murmur heard. ABDOMEN: Soft, non tender, bowel sounds present, no organomegaly. CENTRAL NERVOUS SYSTEM: Awake, alert, oriented x 3. SKIN: No rashes, no swelling. Pale LYMPHATICS: No peripheral lymphadenopathy. MUSCULOSKELETAL: No joint swelling, erythema or tenderness. EXTREMITIES: No cyanosis or clubbing. BACK: No deformity, no pressure ulcer. GENITOURINARY: No dysuria or hematuria. Vital Sign (Last 12 Hours) 05/09/24 05/09/24 05/10/24 05/10/24 23:30 23:45 00:00 00:00 Pulse 111 100 104 Resp 29 23 23 B/P (MAP) 103/44 109/51 105/54 Pulse Ox 100 98 99 100 O2 Delivery Nasal Cannula Nasal Cannula Nasal Cannula* Nasal Cannula O2 Flow Rate 4.0 4.0 3 3.0 FiO2 32 05/10/24 05/10/24 05/10/24 05/10/24 00:15 00:30 00:45 01:00 Pulse 100 113 102 103 Resp 21 23 23 24 B/P (MAP) 111/48 114/59 124/53 107/40 Pulse Ox 100 99 100 100 O2 Delivery Nasal Cannula Nasal Cannula Nasal Cannula Nasal Cannula O2 Flow Rate 3.0 3.0 3.0 3.0 05/10/24 05/10/24 05/10/24 05/10/24 01:15 01:30 01:45 02:00 Pulse 95 103 92 93 Resp 24 28 21 14 B/P (MAP) 113/51 114/63 110/44 107/47 Pulse Ox 100 100 98 98 O2 Delivery Nasal Cannula Nasal Cannula Nasal Cannula Nasal Cannula O2 Flow Rate 3.0 3.0 3.0 3.0 05/10/24 05/10/24 05/10/24 05/10/24 02:15 02:30 02:45 03:00 Pulse 101 97 99 101 Resp 20 20 19 20 B/P (MAP) 100/46 115/46 106/50 102/47 Pulse Ox 97 97 97 98 O2 Delivery Nasal Cannula Nasal Cannula Nasal Cannula Nasal Cannula O2 Flow Rate 3.0 3.0 3.0 3.0 05/10/24 05/10/24 05/10/24 05/10/24 03:15 03:30 03:45 04:00 Temp 98.1 Pulse 96 101 95 102 Resp 18 23 21 20 B/P (MAP) 111/45 114/44 113/52 107/43 Pulse Ox 100 100 100 98 O2 Delivery Nasal Cannula Nasal Cannula Nasal Cannula Nasal Cannula O2 Flow Rate 3.0 3.0 3.0 3.0 05/10/24 05/10/24 05/10/24 05/10/24 04:00 04:15 04:30 04:45 Pulse 100 103 101 Resp 13 20 21 B/P (MAP) 112/42 119/46 117/58 Pulse Ox 99 99 98 97 O2 Delivery Nasal Cannula* Nasal Cannula Nasal Cannula Nasal Cannula O2 Flow Rate 3 3.0 3.0 3.0 FiO2 32 05/10/24 05/10/24 05/10/24 05/10/24 05:00 05:15 05:30 05:45 Pulse 101 98 112 107 Resp 21 21 15 13 B/P (MAP) 107/47 110/44 120/42 110/49 Pulse Ox 100 98 98 99 O2 Delivery Nasal Cannula Nasal Cannula Nasal Cannula Nasal Cannula O2 Flow Rate 3.0 3.0 3.0 3.0 05/10/24 05/10/24 05/10/24 06:00 07:30 09:41 Pulse 100 Resp 21 B/P (MAP) 103/42 103/42 Pulse Ox 98 99 O2 Delivery Nasal Cannula Nasal Cannula* O2 Flow Rate 3.0 3 FiO2 32 Intake & Output (last 24hrs) 05/09/24 05/09/24 05/10/24 15:00 23:00 07:00 Intake Total 105.1 ml 840.8 ml Balance 105.1 ml 840.8 ml LABS: Laboratory: Test 05/10/24 11:03 05/10/24 08:52 05/10/24 03:58 05/09/24 15:18 Range/Units Whole Blood Glucose 142 #H 70-110 MG/DL Troponin I High Sensitivity 9057 *H 4-75 ng/L SARS-CoV-2 Antigen (Rapid) PRESUMPTIVE NEGATIVE NEGATIVE White Blood Count 18.6 #H 4.8-10.8 K/uL Red Blood Count 2.59 L 4.50-6.20 MIL/uL Hemoglobin 7.4 L 14.0-18.0 g/dL Hematocrit 22.4 L 42-54 % Mean Corpuscular Volume 86.5 79-99 fL Mean Corpuscular Hemoglobin 28.6 27.0-33.0 pg Mean Corpuscular Hemoglobin Concent 33.0 32.0-36.0 g/dL Red Cell Distribution Width 17.2 H 11.0-15.5 % Platelet Count 242 130-400 K/uL Mean Platelet Volume 10.7 H 7.5-10.5 fL Immature Granulocyte % (Auto) 0.7 0-1 % Neutrophils (%) (Auto) 86.2 H 40.0-77.0 % Lymphocytes (%) (Auto) 5.0 L 21.0-51.0 % Monocytes (%) (Auto) 8.0 3.0-13.0 % Eosinophils (%) (Auto) 0.0 0.0-8.0 % Basophils (%) (Auto) 0.1 0.0-5.0 % Neutrophils # (Auto) 16.0 H 1.8-7.7 K/uL Lymphocytes # (Auto) 0.9 L 1.0-4.8 K/uL Monocytes # (Auto) 1.5 H 0.1-1.0 K/uL Eosinophils # (Auto) 0.00 0.00-0.70 K/uL Basophils # (Auto) 0.02 0.00-0.20 K/uL Absolute Immature Granulocyte (auto 0.13 0-1 K/uL Nucleated Red Blood Cells 0.2 H 0.0-0.19 % Sodium Level 141 136-145 mmol/L Potassium Level 5.2 H 3.5-5.1 mmol/L Chloride Level 107 101-111 mmol/L Carbon Dioxide Level 20 L 21-32 mmol/L Blood Urea Nitrogen 66 H 7-18 mg/dL Creatinine 3.4 H 0.5-1.3 mg/dL Glomerular Filtration Rate Calc 17 >90 mL/min Random Glucose 322 #H 70-105 mg/dL Total Calcium 8.4 L 8.5-10.1 mg/dL Magnesium Level 1.90 1.80-2.40 mg/dL Total Bilirubin 0.7 0.2-1.0 mg/dL Aspartate Amino Transf (AST/SGOT) 505 H 10-37 U/L Alanine Aminotransferase (ALT/SGPT) 357 #H 12-78 U/L Alkaline Phosphatase 112 50-136 U/L Total Protein 5.9 L 6.0-8.3 g/dL Albumin 2.2 L 3.5-5.0 g/dL B-Type Natriuretic Peptide 1140 H 0-100 pg/mL Test 05/09/24 10:27 Range/Units White Cell Morphology Comment See comments Prothrombin Time 14.6 H 9.6-11.6 SEC Prothromb Time International Ratio 1.34 H 0.85-1.15 Activated Partial Thromboplast Time 29.1 26.3-35.5 SEC Total Creatine Kinase 171 21-232 U/L DIAGNOSTICS / RADIOLOGY: PATIENT: HALLIE BERG MR#: [id number] : 1940 SEX: M AGE: 83 LOCATION: [facility] ORDER [id number] STATUS: REG ER REPORT#: [id number] SERVICE 1016 REASON: HEMETEMESIS ORDERING PHYSICIAN: YOANA LORENZO MD PROCEDURE: ABD PEL WO - CT ABDOMEN/PELVIS W/O CONTRAST CT ABDOMEN/PELVIS W/O CONTRAST HISTORY: Hematemesis COMPARISON: None TECHNIQUE: Multiple sequential axial images of the abdomen and pelvis were obtained from the dome of the diaphragm through symphysis pubis. Patient was not given contrast through intravenous route. Oral contrast was not given. FINDINGS: There are bilateral pleural effusions with compressive atelectasis with left worse than right. Coronary arterial calcifications are seen. There is no evidence of parenchymal disease or pulmonary nodule of the visualized lower lungs. Degenerative changes of the thoracolumbar spine are present. The heart is not enlarged. Liver is enlarged with fatty changes measuring 18.5 cm. Gastric distention is seen. There is small bowel dilatation with fluid-filled. There is diverticulosis. The liver, spleen, adrenal glands and pancreas are unremarkable. There is no evidence of hydronephrosis bilaterally. No evidence of renal stone is seen. Fecal material is seen in the colon. There are normal size retroperitoneal and mesenteric lymph nodes. No ascites is seen. Atherosclerotic changes are present. Appendix is not well visualized. Pelvic sidewalls are symmetric bilaterally. Bladder is poorly distended. IMPRESSION: 1. Bilateral pleural effusions with compressive atelectasis. Gastric distention with small bowel dilatation with fluid-filled may be related to enteritis. Large amount of fecal material is seen in the colon. There is diverticulosis. CT was performed with one or more following dose reduction techniques: automated exposure control, adjustment of the mA and kv according to patient's size, or use of a iterative reconstruction technique. DICTATED BY: OLESYA DERAS MD DATE: 05/09/241128 ASSESSMENT: Gastrointestinal bleeding. Pneumonia. Hypotension. Fvf-FY-alotduitt myocardial infarction. Severe Anemia, requiring blood transfusion. Acute on chronic renal failure. Diabetes mellitus. PLAN: Discontinue cefepime IV. Start Meropenem 1 g IV every 12 hours. Continues on Sandostatin drip. Continue Protonix. We will monitor hemoglobin and hematocrit. Continue vasopressor support. Continue oxygen support. GI has evaluated patient and is pending an EGD. Glucometer checks a.c./hs and cover with insulin per sliding scale protocol. This case was reviewed and discussed with my supervising physician and the above assessment and plan was formulated and agreed upon. ATTESTATION BY PHYSICIAN I have seen and examined the patient. I reviewed the documentation, medical decision making, and treatment plan as noted by the mid-level provider above. I agree with the findings and plan of care. AURORA TERAN MD, [facility] May 10, 2024 11:24
[2024-05-10] MEDS ORDERED: MEROPENEM 1 GM in 0.9%NACL 100ML 100 ML IV SCH (14:00)
[2024-05-10] MEDS ORDERED: PHARMACY COMMUNICATION MISC SCH (14:00)
[2024-05-10] MEDS: MEROPENEM 1 GM VIAL IVPB SCH (14:21)
[2024-05-10] MEDS: dexmedeTOMIDine 400MCG/NS100ML IV SCH (15:51)
[2024-05-10] MEDS: dexmedeTOMIDine 400MCG/NS100ML IV ONE (15:52)
[2024-05-10] MEDS: DEXTROSE 50%-WATER 50 ML DISP.SYRIN IV ONE ×2 (16:04→18:16)
[2024-05-10] MEDS: DEXTROSE 5%-LACTATED RINGERS 1,000 ML IV SCH (16:50)
[2024-05-10] MEDS ORDERED: VASOpressin 20 UNITS/ML 1ML Vi 40 UNITS in 0.9%NACL 50ML 40 ML IV SCH (16:59)
[2024-05-10] MEDS ORDERED: NOREPINEPHRINE 16MG/NS 250ML PREMIX IV SCH (16:59)
[2024-05-10] MEDS: NOREPINEPHRIN 4MG/NS 250ML 250 ML IV SCH (17:40)
--- NOTE | 2024-05-10 17:54 | HMCIMG ---
CHEST 1VW HISTORY: Line placement COMPARISON: 05/09/2024 FINDINGS: A frontal projection of the chest was obtained. There are bilateral pulmonary infiltrates suggestive of pulmonary vascular congestion with possible superimposed pneumonitis. Poststernotomy changes are seen. The heart is enlarged. Degenerative changes of the thoracolumbar spine are present. Evaluation of the venous catheter is limited. There is questionable left venous catheter in the left neck area with tip in the left axilla and clinical correlation is recommended. No evidence of aortic calcification is seen. IMPRESSION: 1. Bilateral pulmonary infiltrates are seen suggestive of pulmonary vascular congestion with possible superimposed pneumonitis.
[2024-05-10 18:02] LABS: ABG HCO3 18.1 mmol/L (21.0-28.0); ABG OXYGEN SATURATION 87.1 % (94.0-98.0); ABG PCO2 34 mmHg (35-48); ABG PH 7.343 (7.350-7.450); CARBON MONOXIDE 0.5 % (0.5-1.5); DEVICE COMMENT RN JUDITH; HHb 12.7; PO2, ARTERIAL BG 58.9 mmHg (83.0-108.0); VENT MODE, BG NC (ROOM AIR)
[2024-05-10] MEDS: NOREPINEPHRIN 4MG/NS 250ML 250 ML IV ONE (18:16)
[2024-05-10] MEDS: LACTATED RINGERS 500 ML IV STA (18:16)
[2024-05-10] MEDS ORDERED: SODIUM CL 4MEQ/ML 30ML 154 MEQ in DEXTROSE 10%-WATER 961.5 ML IV STA (18:49)
[2024-05-10] MEDS: DEXTROSE 10%-WATER 1,000 ML IV SCH (19:07)
--- NOTE | 2024-05-10 19:49 | PN ---
[facility] PROGRESS NOTE Date Patient Seen: May 10, 2024 Time of Visit: 19:43 Supervising Physician: Primary Care Physician: Dr. Sylvia Lane Outpatient Specialists: Assistant Shift Supervisor: Angel Diaz MD Inpatient Consults: Cardiology PROBLEM LIST: Acute GI bleed POA, probably secondary to oral anticoagulation therapy. . Acute blood loss anemia Acute sepsis from unknown source POA. Cardiogenic shock POA. Acute constipation POA. Acute on chronic combined systolic and diastolic congestive heart failure Paroxysmal atrial fibrillation on chronic anticoagulation with Eliquis, to be on hold Hyperkalemia. HTN HLD DM2 CKD stage IIIB CAD s/p CABG in the remote past Recurrent CVAs JACK hx R CEA Pulmonary hypertension Dementia INTERVAL HISTORY: 05/09/24: HPI: This is a 83-year-old male patient who is not a good historian due to his current condition, age in mental status. He resides at a local halfway facility [facility]. The patient has past medical history that is significant for HTN, HLD, DM2, CKD stage IIIB, CAD s/p CABG ecurrent CVA with new onset right side weakness, JACK hx R CEA, Paroxysmal atrial fibrillation on chronic anticoagulation with Eliquis, chronic combined systolic/diastolic heart failure, NSTEMI, and dementia. The patient was sent from the halfway facility via EMS due to report of coffee-ground emesis and abdominal discomfort. Upon entry to the emergency department, vital signs was significant for hypotension systolic of 80/42 that had started since the morning. Of note, the patient is on anticoagulation therapy with apixaban and antiplatelet therapy with Plavix which may have been the culprit. ED workup showed laboratory data indicating a WBC of 11.6, H&H 7.24/22.7 and a platelet count of 238. Chemistry panel was significant for a elevated potassium of 5.4, BUN 59, creatinine of 2.9 and a GFR of 21. Keaton troponin of 1870 and a BNP of 1140. Imaging of the chest showed bilateral pulmonary infiltrates and abdomen showed bilateral pleural effusions with compressive atelectasis. Gastric distention with small bowel dilatation and fluid filled may be related to enteritis. There was large amount of fecal material seen in the colon and there was also presence of diverticulosis. Because of the above findings, the patient was admitted for further inpatient ev aluation and management of his condition. BIS demurrage agent was consulted due to the GI bleed with subsequent hypotension requiring vasopressor therapy. 05/10/2024: At the time of my evaluation, the patient was lying in bed. Per the staff nurse, no acute events overnight. Vital signs obtained were stable. Laboratory data of significance showed a WBC count of 18.6, H and H 7.4/22.4 and a platelet count of 242. Chemistry panel showed a sodium of 141, potassium 5.2, chloride 107, CO2 of 20, BUN is 66, creatinine of 3.4, random glucose of 322 total calcium of 8.4. And increased troponin to 9057. The patient continues on octreotide and pantoprazole infusion. He is also on meropenem for antibiotic coverage. He continues on vasopressin and norepinephrine drip. No other complaint. REVIEW OF SYSTEMS: 12 point ROS reviewed with patient. Pertinent positives mentioned above. Otherwise negative. PHYSICAL EXAM: GENERAL: alert, weak, awake oriented x 3 HEENT: EOMI, Sclera non icteric, moist mucosa NECK: Supple, no JVD, trachea midline LUNGS: Diminished lung sounds. No wheezes HEART: Regular rate and rhythm. Normal S1 and S2, without murmurs ABD: Abdomen soft, nontender. Bowel sounds present EXT: No clubbing cyanosis or edema NEURO: Alert and oriented to person, able to follow simple commands Vital Signs (last 8hr) Date Time Temp Pulse Resp B/P (MAP) Pulse Ox O2 Delivery O2 Flow Rate FiO2 05/10/24 19:30 98 Nasal Cannula* 4 36 05/10/24 19:15 101 21 114/55 (74) 98 32 144/35 (71) 05/10/24 19:00 95 22 117/45 (69) 97 32 142/36 (71) 05/10/24 18:45 95 22 146/39 (74) 98 32 05/10/24 18:30 84 28 101/42 (61) 94 144/58 (86) 05/10/24 18:15 90 8 108/46 (66) 98 153/54 (87) 05/10/24 18:00 92 26 109/52 (71) 97 159/39 (79) 05/10/24 17:45 95 21 163/39 (80) 96 05/10/24 17:40 116/53 05/10/24 17:30 88 25 93/45 (61) 88 121/35 (63) 05/10/24 17:15 93 23 107/47 (67) 99 138/38 (71) 05/10/24 17:00 86 23 123/32 (62) 99 05/10/24 16:45 91 22 109/47 (67) 100 05/10/24 16:30 97 21 116/53 (74) 98 05/10/24 16:30 97 21 116/53 98 05/10/24 16:15 97 20 125/45 (71) 99 05/10/24 16:15 97 20 125/45 99 Nasal Cannula 3.0 05/10/24 16:00 97.9 100 21 102/49 96 Nasal Cannula 3.0 05/10/24 16:00 100 21 102/49 (66) 96 05/10/24 15:45 100 28 105/51 95 Nasal Cannula 3.0 05/10/24 15:35 107 38 92/46 98 Nasal Cannula 3.0 05/10/24 15:30 99 Nasal Cannula* 3 32 05/10/24 15:30 110 34 103/48 97 Nasal Cannula 3.0 05/10/24 15:17 112/41 05/10/24 15:15 100 31 104/50 98 Nasal Cannula 3.0 05/10/24 15:00 101 31 110/43 98 Nasal Cannula 3.0 05/10/24 14:45 106 23 110/46 97 Nasal Cannula 3.0 05/10/24 14:31 115 32 113/45 94 Nasal Cannula 3.0 05/10/24 14:15 105 24 112/41 97 Nasal Cannula 3.0 05/10/24 14:00 107 23 111/60 100 Nasal Cannula 3.0 05/10/24 13:45 103 24 107/48 98 Nasal Cannula 3.0 05/10/24 13:30 97 22 111/42 100 Nasal Cannula 3.0 05/10/24 13:15 94 20 101/47 100 Nasal Cannula 3.0 05/10/24 13:00 106 10 104/46 100 Nasal Cannula 3.0 05/10/24 12:45 95 23 97/52 100 Nasal Cannula 3.0 05/10/24 12:43 118/42 05/10/24 12:30 99 20 99/57 99 Nasal Cannula 3.0 05/10/24 12:15 99 27 96/50 98 Nasal Cannula 3.0 05/10/24 12:00 98.8 105 34 101/49 98 Nasal Cannula 3.0 05/10/24 11:45 102 22 108/49 98 Nasal Cannula 3.0 LABS: Hematology Labs: Test 05/10/24 16:15 05/10/24 03:58 05/09/24 10:27 Range/Units Hemoglobin 7.1 L 14.0-18.0 g/dL Hematocrit 22.0 L 42-54 % White Blood Count 18.6 #H 4.8-10.8 K/uL Red Blood Count 2.59 L 4.50-6.20 MIL/uL Mean Corpuscular Volume 86.5 79-99 fL Mean Corpuscular Hemoglobin 28.6 27.0-33.0 pg Mean Corpuscular Hemoglobin Concent 33.0 32.0-36.0 g/dL Red Cell Distribution Width 17.2 H 11.0-15.5 % Platelet Count 242 130-400 K/uL Mean Platelet Volume 10.7 H 7.5-10.5 fL Immature Granulocyte % (Auto) 0.7 0-1 % Neutrophils (%) (Auto) 86.2 H 40.0-77.0 % Lymphocytes (%) (Auto) 5.0 L 21.0-51.0 % Monocytes (%) (Auto) 8.0 3.0-13.0 % Eosinophils (%) (Auto) 0.0 0.0-8.0 % Basophils (%) (Auto) 0.1 0.0-5.0 % Neutrophils # (Auto) 16.0 H 1.8-7.7 K/uL Lymphocytes # (Auto) 0.9 L 1.0-4.8 K/uL Monocytes # (Auto) 1.5 H 0.1-1.0 K/uL Eosinophils # (Auto) 0.00 0.00-0.70 K/uL Basophils # (Auto) 0.02 0.00-0.20 K/uL Absolute Immature Granulocyte (auto 0.13 0-1 K/uL Nucleated Red Blood Cells 0.2 H 0.0-0.19 % White Cell Morphology Comment See comments Chemistry Labs: Test 05/10/24 18:34 05/10/24 15:54 05/10/24 14:39 05/10/24 03:58 Range/Units Whole Blood Glucose 158 H 70-110 MG/DL Bedside Glucose Comment Notified Nurse Troponin I High Sensitivity 22665 *H 4-75 ng/L Sodium Level 141 136-145 mmol/L Potassium Level 5.2 H 3.5-5.1 mmol/L Chloride Level 107 101-111 mmol/L Carbon Dioxide Level 20 L 21-32 mmol/L Blood Urea Nitrogen 66 H 7-18 mg/dL Creatinine 3.4 H 0.5-1.3 mg/dL Glomerular Filtration Rate Calc 17 >90 mL/min Random Glucose 322 #H 70-105 mg/dL Total Calcium 8.4 L 8.5-10.1 mg/dL Magnesium Level 1.90 1.80-2.40 mg/dL Total Bilirubin 0.7 0.2-1.0 mg/dL Aspartate Amino Transf (AST/SGOT) 505 H 10-37 U/L Alanine Aminotransferase (ALT/SGPT) 357 #H 12-78 U/L Alkaline Phosphatase 112 50-136 U/L Total Protein 5.9 L 6.0-8.3 g/dL Albumin 2.2 L 3.5-5.0 g/dL Test 05/09/24 15:18 05/09/24 10:27 Range/Units B-Type Natriuretic Peptide 1140 H 0-100 pg/mL Total Creatine Kinase 171 21-232 U/L Coagulation Labs: Test 05/09/24 10:27 Range/Units Prothrombin Time 14.6 H 9.6-11.6 SEC Prothromb Time International Ratio 1.34 H 0.85-1.15 Activated Partial Thromboplast Time 29.1 26.3-35.5 SEC DIAGNOSTICS / RADIOLOGY RESULTS: [ ] PLAN 05/09/24: The patient was admitted and BAL was consulted for ICU upgrade. The patient was started on Levophed. In the emergency department, the patient did receive fluid resuscitation with IV NS 1 L bolus. The patient did receive a dose of IV Rocephin. I am going to continue with IV cefepime, we will request blood cultures x2. We will request a MRSA nasal swab. We will order additional vasopressor therapy if hypotension persists. We will monitor the H&H and we will transfuse as necessary. Orders are in place for occult blood in stool. The patient will remain nothing by mouth. We will monitor the trend and maintain map above 65. We will follow the troponins x2 more sets. Cardiology consult is in place as well as Nephrology consultation. Patient was started on antibiotic therapy. Going to repeat surveillance labs in the morning. We will continue provide general supportive care, GI and DVT prophylaxis. Further orders per attending MD and hospital course. 05/10/2024: For now, we are going to continue current management for the patient. We will continue antibiotic coverage as ordered. We will continue to monitor the H&H and we will transfuse as necessary. The patient continue on pressor therapy and may require central line placement. Gastroenterology was consulted on the case and awaiting patient's stability to take the patient for endoscopic evaluation. In the meantime, the patient will continue on octreotide and Protonix. We will follow the recommendation of the firer helper. Patient currently not a candidate for blood thinners/anti-platelet therapy. Because of the low blood pressure trend we will avoid metoprolol and HIMANSHU inhibitors. We will monitor the patient's progress and response to management. We will continue to provide general supportive care, GI and DVT prophylaxis. Further orders per attending MD and hospital course. NEURO: Minimize central acting medications as possible. Fall Precautions. Well lighted room through the day and minimize interruptions through the night to prevent acute delirium. PULMONARY: Supplemental 02 as needed Titrate Fio2 to keep Spo2 > or = 90% DuoNebs and CPT as needed IS hourly while awake for pulmonary hygiene Out of bed to chair as tolerated CARDIOVASCULAR: Follow hemodynamics. Titrate vasopressor to keep MAP >65 or systolic blood pressure >95mmHg DIPS: Levophed LINES: Peripheral IVs GI & NUTRITION: Continue nutritional support Aspirations precautions Prokinetic agents and laxatives as needed KIDNEYS & ELECTROLYTES: Strict monitoring of intake and output Daily weights Avoid nephrotoxic agents Monitor electrolytes and replace as needed Goal urine output of 30mL/hr or 0.5mL/kg/hr Urine output: [ ] Fluid Balance: [ ] ENDOCRINE: Maintain blood glucose between 100-180 at all times. Insulin sliding scale for blood glucose management INFECTIOUS DISEASE: Trend temperature. Zapata-culture if febrile. Micro: Blood cultures to be sent and pending UA. Antibiotics: Cefepime 1 g daily HEMATOLOGY & COAGULATION: Monitor H&H. Keep Hgb > 7 Transfuse 1 unit of PRBC for Hgb < 7 Transfuse 1 pack of platelets of platelets < 20, 000 Watch for any signs and symptoms of bleeding SKIN: Pressure ulcer prevention per facility protocol Rehab: PT/OT once acute phase has been stabilized. Prophylaxis: GI: Protonix DVT: Not a candidate for systemic anticoagulation Code Status: Full Resuscitation Disposition: ICU Case was discussed and seen with my supervising physician. The above plan was formulated and agreed upon. Total critical care time: 35 min CARLOS MANUEL NOE NP May 10, 2024 19:49
--- NOTE | 2024-05-10 20:52 | CONS ---
CONSULTATION NOTE Date of Service: May 10, 2024 Reason for Consultation: Abnormal Renal Function Creatinine of 2.9 BUN 5 HISTORY OF PRESENT ILLNESS: 83-year-old male coming from [facility]. With PMH of CHF, AFib, obesity, dementia, diabetes mellitus type 2, hypertension, lung disease, stroke who was brought to the ER by the EMS with the complaints of hemoptysis and shortness of breath. Patient was does have a somewhat history of chronic kidney disease unknown stage. A current renal function GFR of 21 creatinine of 2.9 and a BUN of 59. Patient is a poor historian information gathered from nurses and from charts. Patient has been on bumetanide since April 27. Urine output minimal, in the last12 hours +/-350 cc. Examined at bedside a chronically ill appearance. No signs symptoms of fever pain or chills noted, on pressors. Consulted for abnormal renal function REVIEW OF SYSTEMS unalbe to assess to current status and mentation PAST MEDICAL HISTORY: Refer to HPI Coded Allergies: iodine (Unverified Allergy, Unknown, 05/09/24) PHYSICAL EXAM EYES: Anicteric HENT: No oral thrush seen, moist Oral mucosa NECK: Supple, no JVD or thyromegaly. LUNGS: Good air entry. CARDIOVASCULAR: S1, S2 regular. ABDOMEN: Soft, non tender, bowel sounds present, no organomegaly CENTRAL NERVOUS SYSTEM: Awake chronically ill appearance SKIN: No rashes, no swelling. LYMPHATICS: No peripheral lymphadenopathy MUSCULOSKELETAL: No joint swelling, erythema or tenderness. EXTREMITIES: No cyanosis or clubbing BACK: No deformity, no pressure ulcer. GENITOURINARY: No dysuria or hematuria Vital Sign (Last 24 Hours) 05/10/24 05/10/24 05/10/24 16:00 19:15 19:30 Temp 97.9 Pulse 101 Resp 21 B/P (MAP) 114/55 (74) 144/35 (71) Pulse Ox 98 O2 Delivery Nasal Cannula* O2 Flow Rate 4 FiO2 36 Intake & Output (last 24hrs) 05/09/24 05/09/24 05/10/24 15:00 23:00 07:00 Intake Total 105.1 ml 840.8 ml Balance 105.1 ml 840.8 ml LABS: Laboratory: Test 05/10/24 18:34 05/10/24 18:00 05/10/24 16:15 05/10/24 15:54 Range/Units Whole Blood Glucose 158 H 70-110 MG/DL Blood Gas Specimen Type Arterial Arterial Blood pH 7.343 L 7.350-7.450 Arterial Blood Partial Pressure CO2 34 L 35-48 mmHg Arterial Blood Partial Pressure O2 58.9 L 83.0-108.0 mmHg Arterial Blood HCO3 18.1 L 21.0-28.0 mmol/L Arterial Blood Oxygen Saturation 87.1 L 94.0-98.0 % Arterial Blood Base Excess -7.0 L -2.0-3.0 mmol/L Hemoglobin (Blood Gas) 7.5 L 13.5-17.5 g/dL Sodium (Blood Gas) 139 136-145 MMOL/L Bedside Potassium (Blood Gas) 4.1 3.4-4.5 MMOL/L Bedside Chloride (Blood Gas) 109 H 98-107 MMOL/L Bedside Glucose (Blood Gas) 47 *L 65-95 MG/DL Bedside Ionized Calcium (Blood Gas) 1.12 L 1.15-1.33 MMOL/L Bedside Lactic Acid (Blood Gas) 2.17 H 0.36-0.75 MMOL/L Blood Gas Temperature 37.0 35.5-37.0 CELSIUS Blood Gas Vent Mode NC ROOM AIR FiO2 32.0 % Blood Gas Specimen Comment SCAR MARIN Hemoglobin 7.1 L 14.0-18.0 g/dL Hematocrit 22.0 L 42-54 % Bedside Glucose Comment Notified Nurse Test 05/10/24 14:39 05/10/24 08:52 05/10/24 03:58 05/09/24 15:18 Range/Units Troponin I High Sensitivity 78929 *H 4-75 ng/L SARS-CoV-2 Antigen (Rapid) PRESUMPTIVE NEGATIVE NEGATIVE White Blood Count 18.6 #H 4.8-10.8 K/uL Red Blood Count 2.59 L 4.50-6.20 MIL/uL Mean Corpuscular Volume 86.5 79-99 fL Mean Corpuscular Hemoglobin 28.6 27.0-33.0 pg Mean Corpuscular Hemoglobin Concent 33.0 32.0-36.0 g/dL Red Cell Distribution Width 17.2 H 11.0-15.5 % Platelet Count 242 130-400 K/uL Mean Platelet Volume 10.7 H 7.5-10.5 fL Immature Granulocyte % (Auto) 0.7 0-1 % Neutrophils (%) (Auto) 86.2 H 40.0-77.0 % Lymphocytes (%) (Auto) 5.0 L 21.0-51.0 % Monocytes (%) (Auto) 8.0 3.0-13.0 % Eosinophils (%) (Auto) 0.0 0.0-8.0 % Basophils (%) (Auto) 0.1 0.0-5.0 % Neutrophils # (Auto) 16.0 H 1.8-7.7 K/uL Lymphocytes # (Auto) 0.9 L 1.0-4.8 K/uL Monocytes # (Auto) 1.5 H 0.1-1.0 K/uL Eosinophils # (Auto) 0.00 0.00-0.70 K/uL Basophils # (Auto) 0.02 0.00-0.20 K/uL Absolute Immature Granulocyte (auto 0.13 0-1 K/uL Nucleated Red Blood Cells 0.2 H 0.0-0.19 % Sodium Level 141 136-145 mmol/L Potassium Level 5.2 H 3.5-5.1 mmol/L Chloride Level 107 101-111 mmol/L Carbon Dioxide Level 20 L 21-32 mmol/L Blood Urea Nitrogen 66 H 7-18 mg/dL Creatinine 3.4 H 0.5-1.3 mg/dL Glomerular Filtration Rate Calc 17 >90 mL/min Random Glucose 322 #H 70-105 mg/dL Total Calcium 8.4 L 8.5-10.1 mg/dL Magnesium Level 1.90 1.80-2.40 mg/dL Total Bilirubin 0.7 0.2-1.0 mg/dL Aspartate Amino Transf (AST/SGOT) 505 H 10-37 U/L Alanine Aminotransferase (ALT/SGPT) 357 #H 12-78 U/L Alkaline Phosphatase 112 50-136 U/L Total Protein 5.9 L 6.0-8.3 g/dL Albumin 2.2 L 3.5-5.0 g/dL B-Type Natriuretic Peptide 1140 H 0-100 pg/mL Test 05/09/24 10:27 Range/Units White Cell Morphology Comment See comments Prothrombin Time 14.6 H 9.6-11.6 SEC Prothromb Time International Ratio 1.34 H 0.85-1.15 Activated Partial Thromboplast Time 29.1 26.3-35.5 SEC Total Creatine Kinase 171 21-232 U/L DIAGNOSTICS / RADIOLOGY: CHEST 1VW HISTORY: Line placement COMPARISON: 05/09/2024 FINDINGS: A frontal projection of the chest was obtained. There are bilateral pulmonary infiltrates suggestive of pulmonary vascular congestion with possible superimposed pneumonitis. Poststernotomy changes are seen. The heart is enlarged. Degenerative changes of the thoracolumbar spine are present. Evaluation of the venous catheter is limited. There is questionable left venous catheter in the left neck area with tip in the left axilla and clinical correlation is recommended. No evidence of aortic calcification is seen. IMPRESSION: 1. Bilateral pulmonary infiltrates are seen suggestive of pulmonary vascular congestion with possible superimposed pneumonitis. ASSESSMENT: СВЕТЛАНА on CKD unknown creatinine 3.4 BUN of 66 renal function 17, likely ATN hypovolemia dehydration Diabetes mellitus type 2 Anemia Hyperkalemia Dehydration PLAN: Continue IV fluids at the moment Monitor I's and O's Dose of renal clearance Monitor renal function Monitor Electrolytes Fluid intake 1.2 L daily Avoid NSAIDs and nephrotoxins JI ARITA May 10, 2024 20:52
--- NOTE | 2024-05-10 21:53 | CONS ---
GASTROENTEROLOGY CONSULTATION REFERRING PHYSICIAN: Jules Teran MD REASON FOR CONSULTATION: GI bleed with nausea, vomiting, coffee-ground emesis-hematemesis and acute blood loss anemia. HISTORY OF PRESENT ILLNESS: The patient is an 83-year-old male with history of CAD, prior non-STEMI, CVA, hypertension, atrial fibrillation, chronic renal disease, who is now anuric, also history of diabetes mellitus and prior coronary artery bypass grafting, who was admitted with nausea, vomiting with coffee-ground emesis-hematemesis and acute blood loss anemia, for which GI evaluation and management are sought. According to the patient, he has no abdominal pain, but has episodes of nausea, vomiting with coffee-ground emesis that prompted hospital admission. Medical personnel also reports possible melena or hematochezia too. The patient is anemic on labs as noted above. He denies abdominal pain, significant weight loss, history of PUD, constipation, or diarrhea. He admits to heartburn though, reports he has been on and off for over 2 months. He has no family history of colon cancer, stomach cancer, esophageal disorders, and IBD/colitis. ALLERGIES: IODINE. PAST MEDICAL AND SURGICAL HISTORY: See above. Also history of hypertension, DM, chronic renal disease and the patient is now anuric. He has history of dementia, CVA, sacrococcygeal ulcer, CAD, and [place]/non-STEMI. He has undergone carotid endarterectomy, cardiac catheterization, multiple cerebral angiogram and CABG. MEDICATIONS: Nifedipine, ferrous sulfate, Colace, meropenem, lactulose, cefepime, vasopressin, Levophed, insulin, octreotide. SOCIAL HISTORY: No alcohol use, tobacco use, illicit drug use. FAMILY HISTORY: Significant for diabetes mellitus, but no hypertension, CAD, [place], CVA, colon cancer, stomach cancer, esophageal disorders, gastric cancer or IBD. REVIEW OF SYSTEMS: Difficult to fully evaluate because of his dementia, but the patient denies any abdominal pain. Reports recent nausea, vomiting with coffee-ground emesis. OPHTHALMOLOGY: No recent vision change, eye pain, periorbital swelling, redness or drainage. ENT: No ear pain, tinnitus, hearing loss, nasal congestion, rhinorrhea, sore throat or voice changes. RESPIRATORY: Denies wheeze, rhinorrhea, epistaxis, chest congestion or cough. CARDIOVASCULAR: No chest pain, palpitation or leg swelling. GENITOURINARY: Admits to anuria. GASTROINTESTINAL: Coffee-ground emesis and possible recent melena, hematochezia, but no abdominal pain. Admits to heartburn though. MUSCULOSKELETAL: Denies joint pain, joint swelling or backache. NEUROLOGY: No tingling, numbness, vision changes or hearing loss. Has dementia though. PSYCHIATRY: No history of depression, anxiety, suicidal plans or ideation. ENDOCRINOLOGY: History of diabetes mellitus and possible hyperlipidemia, but no thyroid disease. HEMATOLOGY/LYMPHATICS: He had recent hematemesis with coffee-ground emesis and possible melena and hematochezia. PHYSICAL EXAMINATION: GENERAL: The patient is an 83-year-old male who appears his stated age, seen resting in bed, in no acute respiratory distress. VITAL SIGNS: Blood pressure 118/42, heart rate 103, respirations 23, temperature was 97.9. SKIN: Warm, dry with multiple scars in bilateral upper extremity and also few ecchymotic areas on lower extremity. HEENT: The patient's head is normocephalic, atraumatic. Pupils reactive, sclerae nonicteric. Oral mucosa was moist, no obvious lesion, no blood noted. Nasal mucosa showed no epistaxis, septal deviation or perforation. NECK: No mass, no jugular venous distention, no lymphadenopathy, no thyromegaly. LUNGS: Clear to auscultation bilaterally. HEART: S1, S2, tachycardic. No obvious murmurs, rubs or gallops auscultated. ABDOMEN: Symmetric, soft with active bowel sounds. No hepatomegaly and no masses. Tenderness noted in bilateral lower abdominal quadrant. No rebound, no guarding. EXTREMITIES: Scars in upper and lower extremities as noted above. No obvious cyanosis, clubbing or edema. RECTAL: Deferred. LABORATORY DATA: WBC 18.6, hemoglobin 7.4, hematocrit 32.4, platelet count of 242. PT 14.6, INR 1.34, APTT of 29.1. Serum chemistry revealed sodium 141, potassium 5.2, chloride 107, CO2 of 120, BUN of 66, creatinine 3.4, GFR of 17, old blood glucose of 318, random glucose 322, total calcium 8.4, magnesium level of 1.9, total bilirubin of 0.7, AST 505, ALT 357, alkaline phosphatase 112. Troponin I high sensitivity 4318 one day ago, now 9057, total protein of 5.9, albumin of 2.2. DIAGNOSTIC STUDIES: CT scan abdomen and pelvis done one day ago showed bilateral pleural effusion with compressive atelectasis. Gastric distention and small bowel dilatation with fluid-filled bowel, which may represent enteritis. Large amount of fecal material seen in the colon. There is diverticulosis. IMPRESSION: * Nausea, vomiting with coffee-ground emesis and acute blood loss anemia, most likely from peptic ulcer bleed versus upper gastrointestinal angiodysplastic lesion or Dieulafoy's lesion and Analia-Merino tear cannot be excluded. * Anemia in this patient may also be possible from lower gastrointestinal angiodysplastic lesion or Dieulafoy's lesion, colon ulcers, colon polyps or colon cancer. * Hypertension. * Atrial fibrillation. * History of cerebrovascular accident. * Dementia. * Coronary artery disease. * History of non-ST elevation myocardial infarction. * Diabetes mellitus. * History of coronary artery bypass graft. * Abnormal CT scan with bilateral pleural effusion and compressive atelectasis. * Gastric distention, which may suggest gastric outlet obstruction from a peptic ulcer disease with small bowel dilatation. Enteritis cannot be excluded. * Change in bowel habit with constipation, which may suggest colon stricture, colon polyp, or colon cancer as noted above. PLAN: * Keep on a clear liquid diet. * Need Cardiology clearance prior to any endoscopic intervention since the patient is at high risk for cardiovascular complications and he is hemodynamically unstable, on pressors now. * The patient is at risk for endoscopic procedures too with multiple comorbidities including renal failure and coronary artery disease. * The patient will undergo EGD and colonoscopy if he is cleared by Cardiology. * Continue to monitor electrolytes. * Await renal input. * Monitor and supplement electrolytes as needed. * Continue Protonix and octreotide therapy for now. Dr. Teran, thank you for allowing me to participate in the care of this patient. TID: [id number] RECEIPT: [id number] cc: JULES TERAN MD(User)
--- NOTE | 2024-05-10 22:31 | PN ---
Cardiology Progress Note Date of Service: 05/10/2024 Attending Binder Technician: Dr. Angel Diaz Reason for Consult: Elevated troponin Problem List: -Multifactorial shock -Leukocytosis -Acute blood loss anemia s/p PRBC transfusion -Acute GI bleed with hematemesis, pending GI evaluation -Elevated troponin -Acute HFrEF (LVEF: 30-35% by echo done 05/10/2024) -Acute on chronic renal insufficiency -Elevated LFTs -Electrolyte derangement -Paroxysmal atrial fibrillation with RVR -CAD s/p CABG -h/o ischemic CVA s/p stent placement (Wingspan 2.5x15 mm) in the right inferior MCA M2 done on 08/10/2018, with residual right sided hemiparesis -HTN -HLP -DM2 -Dementia -Chronic debility (wheelchair bound) -Octogenarian Subjective: This is an 83 y/o male who was seen and evaluated in the ICU today. The patient denies any active complaints including chest pain, chest pressure, palpitations, or shortness of breath. He remains on IV vasopressor support with levophed and vasopressin infusions. He is pending GI evaluation tomorrow to further evaluate the etiology behind his acute GI bleed. Vitals/Labs Vital Signs Date Time Temp Pulse Resp B/P (MAP) Pulse Ox O2 Delivery O2 Flow Rate FiO2 05/10/24 20:00 98 Nasal Cannula* 4 36 05/10/24 19:15 101 21 114/55 (74) 144/35 (71) 05/10/24 16:00 97.9 General: Awake and alert. No acute distress. Ill appearing. Pale, deconditioned. HEENT: Normocephalic, atraumatic. EOMI. Oral mucosa was moist. Neck: No masses, JVD, or carotid bruits. Lungs: No respiratory distress. SCM. Bilateral air entry. Diminished breath sounds noted throughout. Cardio: Regular rate, irregular rhythm. Abdomen: Soft, nontender, nondistended. No organomegaly. Normoactive bowel sounds x 4 quadrants. Extremities. No edema, clubbing, or cyanosis. Diminished pulses noted throughout. Muscle atrophy noted. Neuro: Cranial nerves II through XII are grossly intact. No new focal deficits identified. Laboratory Tests 05/10/24 03:58 05/10/24 16:15 Assessment: -Multifactorial shock -Leukocytosis -Acute blood loss anemia s/p PRBC transfusion -Acute GI bleed with hematemesis, pending GI evaluation -Elevated troponin -Acute HFrEF (LVEF: 30-35% by echo done 05/10/2024) -Acute on chronic renal insufficiency -Elevated LFTs -Electrolyte derangement -Paroxysmal atrial fibrillation with RVR -CAD s/p 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 Elevated troponin -Cardiac enzymes-HS troponin I: [id number] -The patient denies any chest pain, chest pressure, palpitations, or shortness of breath. -He is not a candidate for antiplatelet therapy due to his acute GI bleed, he is not a candidate for BB therapy due to the need for IV vasopressor support, and he is not a candidate for statin therapy due to his elevated LFTs. -He must first undergo the GI evaluation to further evaluate the etiology behind his acute blood loss anemia and GI bleed, before we can safely start the patient on medical therapy, much less consider pursuing further ischemic cardiac workup. 2. Acute HFrEF (LVEF: 30-35% by echo done 05/10/2024) -The patient is not a candidate for GDMT with BB therapy or ACEI/ARB/ARNI therapy due to the need for IV vasopressor support. -Please record strict I/O's, daily weights, and restrict fluids to less than 2.0L/day 3. Paroxysmal atrial fibrillation with RVR -Substrate: Dilated atria -Inciting factor: Multiple, including shock, leukocytosis, and anemia -12H telemetry: Atrial fibrillation, HR: 91-113 bpm -The patient is not a candidate for rate control therapy due to the need for IV vasopressor support -CHADS2 VASc score: 8 points. HAS BLED score: 6 points. The patient is not a candidate for anticoagulation at this time due to the his acute blood loss anemia. -Please keep the patient on continuous telemetry monitoring and maintain electrolytes within normal parameters. This case was discussed with my Supervising Physician, Dr. Angel Diaz, and the above mentioned plan was formulated and agreed upon. -Progress Note written by Иван Rodas, MSN, PASTRY MIXER, AGAP- ИВАН RODAS NP May 10, 2024 22:31
[2024-05-10 23:22] LABS: INR 1.47 (0.85-1.15); PROTHROMBIN TIME 15.8 SEC (9.6-11.6)
[2024-05-10 23:24] LABS: PARTIAL THROMBOPLASTIN TIME 34.7 SEC (26.3-35.5)
[2024-05-11] VITALS (72 sets, daily range): BP systolic 72–146; BP diastolic 23–63; PULSE 86–117; RESP 11–32; TEMP 96.6–99.8; O2SAT 97–99
[2024-05-11 04:58] LABS: CREATININE 3.4 mg/dL (0.5-1.3); MAGNESIUM 1.8 mg/dL (1.80-2.40); POTASSIUM 4.2 mmol/L (3.5-5.1)
[2024-05-11 05:02] LABS: INR 1.39 (0.85-1.15); PROTHROMBIN TIME 15.1 SEC (9.6-11.6)
[2024-05-11 05:07] LABS: BASOPHILS # (AUTO) 0.01 K/uL (0.00-0.20); BASOPHILS % (AUTO) 0.1 % (0.0-5.0); EOSINOPHILS # (AUTO) 0.01 K/uL (0.00-0.70); EOSINOPHILS % (AUTO) 0.1 % (0.0-8.0); IMMATURE GRANULOCYTE ABSOLUTE 0.07 K/uL (0-1); LYMPHOCYTES # (AUTO) 0.7 K/uL (1.0-4.8); LYMPHOCYTES % (AUTO) 4.7 % (21.0-51.0); MEAN CORPUSCULAR HEMOGLOBIN 28.8 pg (27.0-33.0); MEAN CORPUSCULAR HGB CONC 32.7 g/dL (32.0-36.0); MONOCYTES # (AUTO) 1.1 K/uL (0.1-1.0); NEUTROPHILS # (AUTO) 13.2 K/uL (1.8-7.7); NEUTROPHILS % (AUTO) 87.6 % (40.0-77.0); NUCLEATED RED BLOOD CELLS 0.3 % (0.0-0.19); PLATELET COUNT (AUTO) 232 K/uL (130-400); RED CELL DISTRIBUTION WIDTH 18.4 % (11.0-15.5)
[2024-05-11] MEDS ORDERED: NIFEDIPINE PO SCH (09:00)
[2024-05-11] MEDS: FERROUS SULFATE 325 MG TABLET.DR PO SCH (09:00)
[2024-05-11] MEDS: doCUSate SODIUM 100 MG CAP PO SCH (09:00)
[2024-05-11] MEDS ORDERED: BALSAM PERU/CASTOR OIL 60 GM TUBE TP SCH (09:00)
[2024-05-11 10:03] LABS: BASOPHILS # (AUTO) 0.02 K/uL (0.00-0.20); BASOPHILS % (AUTO) 0.2 % (0.0-5.0); EOSINOPHILS # (AUTO) 0.01 K/uL (0.00-0.70); EOSINOPHILS % (AUTO) 0.1 % (0.0-8.0); HEMATOCRIT 21.9 % (42-54); IMMATURE GRANULOCYTE ABSOLUTE 0.09 K/uL (0-1); LYMPHOCYTES # (AUTO) 0.8 K/uL (1.0-4.8); LYMPHOCYTES % (AUTO) 6.7 % (21.0-51.0); MEAN CORPUSCULAR HEMOGLOBIN 29.1 pg (27.0-33.0); MEAN CORPUSCULAR HGB CONC 32.4 g/dL (32.0-36.0); MEAN CORPUSCULAR VOLUME 89.8 fL (79-99); MONOCYTES # (AUTO) 0.8 K/uL (0.1-1.0); MONOCYTES % (AUTO) 6.9 % (3.0-13.0); NEUTROPHILS # (AUTO) 10.4 K/uL (1.8-7.7); NEUTROPHILS % (AUTO) 85.4 % (40.0-77.0); NUCLEATED RED BLOOD CELLS 0.2 % (0.0-0.19); PLATELET COUNT (AUTO) 203 K/uL (130-400); RED BLOOD CELL COUNT(AUTO) 2.44 MIL/uL (4.50-6.20); RED CELL DISTRIBUTION WIDTH 18.1 % (11.0-15.5); WHITE BLOOD COUNT (AUTO) 12.2 K/uL (4.8-10.8)
[2024-05-11 10:16] LABS: ALBUMIN 1.9 g/dL (3.5-5.0); BILIRUBIN,TOTAL 0.5 mg/dL (0.2-1.0); CREATININE 3.6 mg/dL (0.5-1.3); POTASSIUM 4.1 mmol/L (3.5-5.1); TOTAL PROTEIN, SERUM 5.2 g/dL (6.0-8.3)
--- NOTE | 2024-05-11 11:50 | PN ---
Cardiology Progress Note Date of Service: 05/11/2024 Attending Pipeline Executive: Dr. Angel Diaz Reason for Consult: Elevated troponin Problem List: -Multifactorial shock -Sepsis -Leukocytosis -Acute blood loss anemia s/p PRBC transfusion -Acute GI bleed with hematemesis, pending GI evaluation -ACS-NSTEMI -Acute HFrEF (LVEF: 30-35% by echo done 05/10/2024) -Acute on chronic renal insufficiency -Elevated LFTs -Electrolyte derangement -Paroxysmal atrial fibrillation with RVR -Multifactorial encephalopathy -CAD s/p CABG -h/o ischemic CVA s/p stent placement (Wingspan 2.5x15 mm) in the right inferior MCA M2 done on 08/10/2018, with residual right sided hemiparesis -HTN -HLP -DM2 -Dementia -Chronic debility (wheelchair bound) -Octogenarian Subjective: This is an 83 y/o male who was seen and evaluated in the ICU today. The patient is visibly altered and confused, but through limited conversation complains of left lower extremity pain due to spasms. He remains on IV vasopressor support with norepinephrine. Vitals/Labs Vital Signs Date Time Temp Pulse Resp B/P (MAP) Pulse Ox O2 Delivery O2 Flow Rate FiO2 05/11/24 10:05 101/58 05/11/24 06:00 111 23 98 05/11/24 04:00 Nasal Cannula* 4 36 05/11/24 04:00 98.1 General: Altered and confused. No acute distress. Ill appearing. Pale, deconditioned. HEENT: Normocephalic, atraumatic. EOMI. Oral mucosa was moist. Neck: No masses, JVD, or carotid bruits. Lungs: SCM. Bilateral air entry. Coarse breath sounds noted throughout. Cardio: Irregularly, irregular rate and rhythm. Abdomen: Soft, nontender, nondistended. No organomegaly. Normoactive bowel sounds x 4 quadrants. Extremities. No edema, clubbing, or cyanosis. Diminished pulses noted throughout. Muscle atrophy noted. Neuro: Cranial nerves II through XII are grossly intact. No new focal deficits identified. Laboratory Tests 05/10/24 16:15 05/10/24 22:53 05/11/24 04:35 05/11/24 09:49 Assessment: -Multifactorial shock -Sepsis -Leukocytosis -Acute blood loss anemia s/p PRBC transfusion -Acute GI bleed with hematemesis, pending GI evaluation -ACS-NSTEMI -Acute HFrEF (LVEF: 30-35% by echo done 05/10/2024) -Acute on chronic renal insufficiency -Elevated LFTs -Electrolyte derangement -Paroxysmal atrial fibrillation with RVR -Multifactorial encephalopathy -CAD s/p 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 ACS-NSTEMI -Cardiac enzymes-HS troponin I: [id number] -Unfortunately the patient is not a candidate for conservative medical therapy, much less further ischemic cardiac evaluation due to current critical state. -He is not a candidate for conservative medical therapy with antiplatelet therapy due to his acute GI bleed, he is not a candidate for BB therapy due to the need for IV vasopressor support, and he is not a candidate for statin therapy due to his elevated LFTs. -He is not a candidate for further ischemic evaluation due to his acute GI bleed as he would require antiplatelet therapy and anticoagulation as well as his advanced renal dysfunction, which places him at an increased risk of developing contrast induced nephropathy resulting in worsening renal dysfunction/renal failure and likelihood of requiring hemodialysis. 2. Acute HFrEF (LVEF: 30-35% by echo done 05/10/2024) -24H urine output: 500 mL -24H fluid balance: +3336.3 mL -BNP: 2150, admission: 1140 -In order to address the patient's volume overload we will start him on an IV furosemide infusion at 2.5mg/hr in order to target a 1-2L fluid loss per day. -The patient is not a candidate for GDMT with BB therapy or ACEI/ARB/ARNI therapy due to the need for IV vasopressor support. -Please record strict I/O's, daily weights, and restrict fluids to less than 2.0L/day 3. Paroxysmal atrial fibrillation with RVR -Substrate: Dilated atria -Inciting factor: Multiple, including shock, leukocytosis, and anemia -12H telemetry: Atrial fibrillation, HR: 98-125 bpm -The patient is not a candidate for rate control therapy due to the need for IV vasopressor support. Furthermore, his elevated HR are likely a compensatory mechanism due to his shock state. -CHADS2 VASc score: 8 points. HAS BLED score: 6 points. The patient is not a candidate for anticoagulation at this time due to the his acute blood loss anemia. -Please keep the patient on continuous telemetry monitoring and maintain electrolytes within normal parameters. The lengthy discussion was had with the patient's regarding the patient's critical status and prognosis, and recommendations for DNR/DNI status and possible transition to Palliative Care/Comfort Measures. She states that she will discuss CODE STATUS and goals of care with her children and provide input later today. This case was discussed with my Supervising Physician, Dr. Angel Diaz, and the above mentioned plan was formulated and agreed upon. -Progress Note written by Иван Rodas, MSN, REACTOR KETTLE OPERATOR, AGACNP-BC ИВАН RODAS NP May 11, 2024 11:50
--- NOTE | 2024-05-11 12:27 | PN ---
[facility] PROGRESS NOTE Date Patient Seen: May 11, 2024 Time of Visit: 12:25 Supervising Physician: Dr. Raymond Primary Care Physician: Dr. Sylvia Lane Outpatient Specialists: Cartographic Technician: Angel Diaz MD Inpatient Consults: Cardiology PROBLEM LIST: Acute GI bleed POA, probably secondary to oral anticoagulation therapy. . Acute blood loss anemia Acute sepsis from unknown source POA. Cardiogenic shock POA. Acute constipation POA. Acute on chronic combined systolic and diastolic congestive heart failure Paroxysmal atrial fibrillation on chronic anticoagulation with Eliquis, to be on hold Hyperkalemia. HTN HLD DM2 CKD stage IIIB CAD s/p CABG in the remote past Recurrent CVAs JACK hx R CEA Pulmonary hypertension Dementia INTERVAL HISTORY: 05/09/24: HPI: This is a 83-year-old male patient who is not a good historian due to his current condition, age in mental status. He resides at a local halfway facility [place]. The patient has past medical history that is significant for HTN, HLD, DM2, CKD stage IIIB, CAD s/p CABG ecurrent CVA with new onset right side weakness, JACK hx R CEA, Paroxysmal atrial fibrillation on chronic anticoagulation with Eliquis, chronic combined systolic/diastolic heart failure, NSTEMI, and dementia. The patient was sent from the halfway facility via EMS due to report of coffee-ground emesis and abdominal discomfort. Upon entry to the emergency department, vital signs was significant for hypotension systolic of 80/42 that had started since the morning. Of note, the patient is on anticoagulation therapy with apixaban and antiplatelet therapy with Plavix which may have been the culprit. ED workup showed laboratory data indicating a WBC of 11.6, H&H 7.24/22.7 and a platelet count of 238. Chemistry panel was significant for a elevated potassium of 5.4, BUN 59, creatinine of 2.9 and a GFR of 21. Keaton troponin of 1870 and a BNP of 1140. Imaging of the chest showed bilateral pulmonary infiltrates and abdomen showed bilateral pleural effusions with compressive atelectasis. Gastric distention with small bowel dilatation and fluid filled may be related to enteritis. There was large amount of fecal material seen in the colon and there was also presence of diverticulosis. Because of the above findings, the patient was admitted for further inpatient evaluation and management of his condition. BIS pleater was consulted due to the GI bleed with subsequent hypotension requiring vasopressor therapy. 05/10/2024: At the time of my evaluation, the patient was lying in bed. Per the staff nurse, no acute events overnight. Vital signs obtained were stable. Laboratory data of significance showed a WBC count of 18.6, H and H 7.4/22.4 and a platelet count of 242. Chemistry panel showed a sodium of 141, potassium 5.2, chloride 107, CO2 of 20, BUN is 66, creatinine of 3.4, random glucose of 322 total calcium of 8.4. And increased troponin to 9057. The patient continues on octreotide and pantoprazole infusion. He is also on meropenem for antibiotic coverage. He continues on vasopressin and norepinephrine drip. No other complaint. 05/11/2024: At the time of my evaluation, the patient was lying in bed. He remains on Lasix., also on vasopressin and norepinephrine. He was given Precedex for anxiolytic management currently, the patient is on IV antibiotics guided by the Infectious Disease specialist and continue on Protonix and octreotide drip. He still remains critically ill. Family members were present at the bedside. No new complaints. REVIEW OF SYSTEMS: 12 point ROS reviewed with patient. Pertinent positives mentioned above. Otherwise negative. PHYSICAL EXAM: GENERAL: alert, weak, awake oriented x 3 HEENT: EOMI, Sclera non icteric, moist mucosa NECK: Supple, no JVD, trachea midline LUNGS: Diminished lung sounds. No wheezes HEART: Regular rate and rhythm. Normal S1 and S2, without murmurs ABD: Abdomen soft, nontender. Bowel sounds present EXT: No clubbing cyanosis or edema NEURO: Alert and oriented to person, able to follow simple commands Vital Signs (last 8hr) Date Time Temp Pulse Resp B/P (MAP) Pulse Ox O2 Delivery O2 Flow Rate FiO2 05/11/24 10:05 101/58 05/11/24 06:00 111 23 116/39 (64) 98 130/36 (67) 05/11/24 05:45 116 25 128/34 (65) 99 05/11/24 05:30 111 23 123/35 (64) 98 05/11/24 05:15 110 28 130/33 (65) 97 05/11/24 05:00 104 24 99/53 (68) 99 127/33 (64) 05/11/24 04:45 112 23 126/34 (64) 99 05/11/24 04:30 102 23 123/34 (63) 98 LABS: Hematology Labs: Test 05/11/24 09:49 05/11/24 04:35 Range/Units White Blood Count 12.2 H 4.8-10.8 K/uL Red Blood Count 2.44 L 4.50-6.20 MIL/uL Hemoglobin 7.1 L 14.0-18.0 g/dL Hematocrit 21.9 L 42-54 % Mean Corpuscular Volume 89.8 79-99 fL Mean Corpuscular Hemoglobin 29.1 27.0-33.0 pg Mean Corpuscular Hemoglobin Concent 32.4 32.0-36.0 g/dL Red Cell Distribution Width 18.1 H 11.0-15.5 % Platelet Count 203 130-400 K/uL Mean Platelet Volume 11.2 H 7.5-10.5 fL Immature Granulocyte % (Auto) 0.7 0-1 % Neutrophils (%) (Auto) 85.4 H 40.0-77.0 % Lymphocytes (%) (Auto) 6.7 L 21.0-51.0 % Monocytes (%) (Auto) 6.9 3.0-13.0 % Eosinophils (%) (Auto) 0.1 0.0-8.0 % Basophils (%) (Auto) 0.2 0.0-5.0 % Neutrophils # (Auto) 10.4 H 1.8-7.7 K/uL Lymphocytes # (Auto) 0.8 L 1.0-4.8 K/uL Monocytes # (Auto) 0.8 0.1-1.0 K/uL Eosinophils # (Auto) 0.01 0.00-0.70 K/uL Basophils # (Auto) 0.02 0.00-0.20 K/uL Absolute Immature Granulocyte (auto 0.09 0-1 K/uL Nucleated Red Blood Cells 0.2 H 0.0-0.19 % Red Blood Cell Morphology See comments Chemistry Labs: Test 05/11/24 11:42 05/11/24 09:49 05/11/24 04:35 05/10/24 15:54 Range/Units Whole Blood Glucose 226 #H 70-110 MG/DL Sodium Level 143 136-145 mmol/L Potassium Level 4.1 3.5-5.1 mmol/L Chloride Level 111 101-111 mmol/L Carbon Dioxide Level 19 L 21-32 mmol/L Blood Urea Nitrogen 80 *H 7-18 mg/dL Creatinine 3.6 H 0.5-1.3 mg/dL Glomerular Filtration Rate Calc 16 >90 mL/min Random Glucose 227 H 70-105 mg/dL Total Calcium 7.7 L 8.5-10.1 mg/dL Total Bilirubin 0.5 0.2-1.0 mg/dL Aspartate Amino Transf (AST/SGOT) 200 H 10-37 U/L Alanine Aminotransferase (ALT/SGPT) 280 H 12-78 U/L Alkaline Phosphatase 101 50-136 U/L Troponin I High Sensitivity 6323 *H 4-75 ng/L B-Type Natriuretic Peptide 2150 H 0-100 pg/mL Total Protein 5.2 L 6.0-8.3 g/dL Albumin 1.9 L 3.5-5.0 g/dL Magnesium Level 1.80 1.80-2.40 mg/dL Bedside Glucose Comment Notified Nurse Coagulation Labs: Test 05/11/24 04:35 05/10/24 22:53 Range/Units Prothrombin Time 15.1 H 9.6-11.6 SEC Prothromb Time International Ratio 1.39 H 0.85-1.15 Activated Partial Thromboplast Time 34.7 26.3-35.5 SEC Fibrinogen 266 180-350 mg/dL DIAGNOSTICS / RADIOLOGY RESULTS: [ ] PLAN 05/09/24: The patient was admitted and BAL was consulted for ICU upgrade. The patient was started on Levophed. In the emergency department, the patient did receive fluid resuscitation with IV NS 1 L bolus. The patient did receive a dose of IV Rocephin. I am going to continue with IV cefepime, we will request blood cultures x2. We will request a MRSA nasal swab. We will order additional vasopressor therapy if hypotension persists. We will monitor the H&H and we will transfuse as necessary. Orders are in place for occult blood in stool. The patient will remain nothing by mouth. We will monitor the trend and maintain map above 65. We will follow the troponins x2 more sets. Cardiology consult is in place as well as Nephrology consultation. Patient was started on antibiotic therapy. Going to repeat surveillance labs in the morning. We will continue provide general supportive care, GI and DVT prophylaxis. Further orders per attending MD and hospital course. 05/10/2024: For now, we are going to continue current management for the patient. We will continue antibiotic coverage as ordered. We will continue to monitor the H&H and we will transfuse as necessary. The patient continue on pressor therapy and may require central line placement. Gastroenterology was consulted on the case and awaiting patient's stability to take the patient for endoscopic evaluation. In the meantime, the patient will continue on octreotide and Protonix. We will follow the recommendation of the counselor aid. Patient currently not a candidate for blood thinners/anti-platelet therapy. Because of the low blood pressure trend we will avoid metoprolol and HIMANSHU inhibitors. We will monitor the patient's progress and response to management. We will continue to provide general supportive care, GI and DVT prophylaxis. Further orders per attending MD and hospital course. 05/11/2024: For now, we are going to continue the patient management. He will continue on antibiotic therapy as ordered, Lasix drip and pressor therapy with addition of anxiolytic Precedex. for hypotension management. I am going to repeat surveillance labs management to follow the H&H trend as well as the renal parameters. We will follow the recommendation treating specialist. The patient needs to undergo EGD as colonoscopy evaluation. Unfortunately he is not stable enough to undergo this procedure. We will await for clearance. Patient complains of involuntary lower extremity muscular spasms. He was started on baclofen 5 mg p.o. b.i.d. we will follow management. Appreciate the input of the treating specialist. We will continue to provide general supportive care, GI and DVT prophylaxis. Further orders per attending MD and hospital course. NEURO: Minimize central acting medications as possible. Fall Precautions. Well lighted room through the day and minimize interruptions through the night to prevent acute delirium. PULMONARY: Supplemental 02 as needed Titrate Fio2 to keep Spo2 > or = 90% DuoNebs and CPT as needed IS hourly while awake for pulmonary hygiene Out of bed to chair as tolerated CARDIOVASCULAR: Follow hemodynamics. Titrate vasopressor to keep MAP >65 or systolic blood pressure >95mmHg DIPS: Levophed LINES: Peripheral IVs GI & NUTRITION: Continue nutritional support Aspirations precautions Prokinetic agents and laxatives as needed KIDNEYS & ELECTROLYTES: Strict monitoring of intake and output Daily weights Avoid nephrotoxic agents Monitor electrolytes and replace as needed Goal urine output of 30mL/hr or 0.5mL/kg/hr Urine output: [ ] Fluid Balance: [ ] ENDOCRINE: Maintain blood glucose between 100-180 at all times. Insulin sliding scale for blood glucose management INFECTIOUS DISEASE: Trend temperature. Zapata-culture if febrile. Micro: Blood cultures to be sent and pending UA. Antibiotics: Cefepime 1 g daily HEMATOLOGY & COAGULATION: Monitor H&H. Keep Hgb > 7 Transfuse 1 unit of PRBC for Hgb < 7 Transfuse 1 pack of platelets of platelets < 20, 000 Watch for any signs and symptoms of bleeding SKIN: Pressure ulcer prevention per facility protocol Rehab: PT/OT once acute phase has been stabilized. Prophylaxis: GI: Protonix DVT: Not a candidate for systemic anticoagulation Code Status: Full Resuscitation Disposition: ICU Case was discussed and seen with my supervising physician. The above plan was formulated and agreed upon. Total critical care time: 35 min CARLOS MANUEL NOE NP May 11, 2024 12:27
[2024-05-11] MEDS: hydroMORPHone 0.5 MG SYG (0.5MG/0.5ML) IVP PRN (14:14)
--- NOTE | 2024-05-11 14:34 | PN ---
PROGRESS NOTE Date of Service: May 11, 2024 Time of Service: 14:18 SUBJECTIVE: No new concerns. Continues in the ICU setting no change in status. On pressors. Urine output 500cc in the last 24hours. No acute events reported in the last 24 hours. REVIEW OF SYSTEMS unable to assess to current status and mentation PHYSICAL EXAM EYES: Anicteric HENT: No oral thrush seen, moist Oral mucosa NECK: Supple, no JVD or thyromegaly. LUNGS: Good air entry. CARDIOVASCULAR: S1, S2 regular. ABDOMEN: Soft, non tender, ABS CENTRAL NERVOUS SYSTEM: Awake chronically ill appearance SKIN: No rashes, no swelling. LYMPHATICS: No peripheral lymphadenopathy MUSCULOSKELETAL: No joint swelling, erythema or tenderness. EXTREMITIES: No cyanosis or clubbing BACK: No deformity, no pressure ulcer. GENITOURINARY: No dysuria or hematuria Vital Signs (last 8hr) Date Time Temp Pulse Resp B/P (MAP) Pulse Ox O2 Delivery O2 Flow Rate FiO2 05/11/24 14:05 108 18 N/Cannula Low lpm 3.0 32 05/11/24 10:05 101/58 LABS: Laboratory: Test 05/11/24 11:42 05/11/24 09:49 05/11/24 04:35 05/10/24 22:53 Range/Units Whole Blood Glucose 226 #H 70-110 MG/DL White Blood Count 12.2 H 4.8-10.8 K/uL Red Blood Count 2.44 L 4.50-6.20 MIL/uL Hemoglobin 7.1 L 14.0-18.0 g/dL Hematocrit 21.9 L 42-54 % Mean Corpuscular Volume 89.8 79-99 fL Mean Corpuscular Hemoglobin 29.1 27.0-33.0 pg Mean Corpuscular Hemoglobin Concent 32.4 32.0-36.0 g/dL Red Cell Distribution Width 18.1 H 11.0-15.5 % Platelet Count 203 130-400 K/uL Mean Platelet Volume 11.2 H 7.5-10.5 fL Immature Granulocyte % (Auto) 0.7 0-1 % Neutrophils (%) (Auto) 85.4 H 40.0-77.0 % Lymphocytes (%) (Auto) 6.7 L 21.0-51.0 % Monocytes (%) (Auto) 6.9 3.0-13.0 % Eosinophils (%) (Auto) 0.1 0.0-8.0 % Basophils (%) (Auto) 0.2 0.0-5.0 % Neutrophils # (Auto) 10.4 H 1.8-7.7 K/uL Lymphocytes # (Auto) 0.8 L 1.0-4.8 K/uL Monocytes # (Auto) 0.8 0.1-1.0 K/uL Eosinophils # (Auto) 0.01 0.00-0.70 K/uL Basophils # (Auto) 0.02 0.00-0.20 K/uL Absolute Immature Granulocyte (auto 0.09 0-1 K/uL Nucleated Red Blood Cells 0.2 H 0.0-0.19 % Sodium Level 143 136-145 mmol/L Potassium Level 4.1 3.5-5.1 mmol/L Chloride Level 111 101-111 mmol/L Carbon Dioxide Level 19 L 21-32 mmol/L Blood Urea Nitrogen 80 *H 7-18 mg/dL Creatinine 3.6 H 0.5-1.3 mg/dL Glomerular Filtration Rate Calc 16 >90 mL/min Random Glucose 227 H 70-105 mg/dL Total Calcium 7.7 L 8.5-10.1 mg/dL Total Bilirubin 0.5 0.2-1.0 mg/dL Aspartate Amino Transf (AST/SGOT) 200 H 10-37 U/L Alanine Aminotransferase (ALT/SGPT) 280 H 12-78 U/L Alkaline Phosphatase 101 50-136 U/L Troponin I High Sensitivity 6323 *H 4-75 ng/L B-Type Natriuretic Peptide 2150 H 0-100 pg/mL Total Protein 5.2 L 6.0-8.3 g/dL Albumin 1.9 L 3.5-5.0 g/dL Red Blood Cell Morphology See comments Prothrombin Time 15.1 H 9.6-11.6 SEC Prothromb Time International Ratio 1.39 H 0.85-1.15 Magnesium Level 1.80 1.80-2.40 mg/dL Activated Partial Thromboplast Time 34.7 26.3-35.5 SEC Fibrinogen 266 180-350 mg/dL Test 05/10/24 18:00 05/10/24 15:54 05/10/24 08:52 Range/Units Blood Gas Specimen Type Arterial Arterial Blood pH 7.343 L 7.350-7.450 Arterial Blood Partial Pressure CO2 34 L 35-48 mmHg Arterial Blood Partial Pressure O2 58.9 L 83.0-108.0 mmHg Arterial Blood HCO3 18.1 L 21.0-28.0 mmol/L Arterial Blood Oxygen Saturation 87.1 L 94.0-98.0 % Arterial Blood Base Excess -7.0 L -2.0-3.0 mmol/L Hemoglobin (Blood Gas) 7.5 L 13.5-17.5 g/dL Sodium (Blood Gas) 139 136-145 MMOL/L Bedside Potassium (Blood Gas) 4.1 3.4-4.5 MMOL/L Bedside Chloride (Blood Gas) 109 H 98-107 MMOL/L Bedside Glucose (Blood Gas) 47 *L 65-95 MG/DL Bedside Ionized Calcium (Blood Gas) 1.12 L 1.15-1.33 MMOL/L Bedside Lactic Acid (Blood Gas) 2.17 H 0.36-0.75 MMOL/L Blood Gas Temperature 37.0 35.5-37.0 CELSIUS Blood Gas Vent Mode NC ROOM AIR FiO2 32.0 % Blood Gas Specimen Comment RN TANIA Bedside Glucose Comment Notified Nurse SARS-CoV-2 Antigen (Rapid) PRESUMPTIVE NEGATIVE NEGATIVE DIAGNOSTICS / RADIOLOGY: CHEST 1VW HISTORY: Line placement COMPARISON: 05/09/2024 FINDINGS: A frontal projection of the chest was obtained. There are bilateral pulmonary infiltrates suggestive of pulmonary vascular congestion with possible superimposed pneumonitis. Poststernotomy changes are seen. The heart is enlarged. Degenerative changes of the thoracolumbar spine are present. Evaluation of the venous catheter is limited. There is questionable left venous catheter in the left neck area with tip in the left axilla and clinical correlation is recommended. No evidence of aortic calcification is seen. IMPRESSION: 1. Bilateral pulmonary infiltrates are seen suggestive of pulmonary vascular congestion with possible superimposed pneumonitis. ASSESSMENT: СВЕТЛАНА on CKD unknown creatinine 3.4 BUN of 66 renal function 17, likely ATN hypovolemia dehydration Diabetes mellitus type 2 Anemia Hyperkalemia Dehydration metabolic acidosis PLAN: No change in POC, started on diuretic Monitor renal function; slight decline in the last 24hours remains in stage 4 Monitor I's and O's Continue IV fluids at the moment Dose of renal clearance Monitor Electrolytes Fluid intake 1.2 L daily Avoid NSAIDs and nephrotoxins started on sodium bicarbonate JI ARITA 9, 2025 14:34
[2024-05-11] MEDS: furoSEMIDE 100MG VIAL 100 MG in 0.9%NACL 100ML 100 ML IV SCH (14:39)
--- NOTE | 2024-05-11 16:09 | NUR ---
[facility] Consult: Patient assessed by wound healing team. See wound assessment. Assessment and recommendations provided to primary nurse. Education provided. Addendum: 05/16/24 at 1152 by WILVER TRUJILLO RN RN/ Amended: Links added.
--- NOTE | 2024-05-11 17:05 | NUR ---
CM NOTE/[facility] CM spoke to patient's spouse Kristel Lo [phone] regarding d/c planning. Reports patient has been a longterm resident at [facility]. CM discussed goals of care for patient. Spouse reports cardiology team spoke to her about patient's poor prognosis. Patient has OOH DNR in chart. CM discussed code status with spouse along with primary nurse Fadumo. Spouse requesting DNR/DNI status continue here in hospital. CM asked spouse if hospice was discussed and/or offered. States she was offered hospice while at the [facility] and understands that aggressive efforts have been made here in hospital but no improvement in patient's condition. States she prefers patient have hospice here in hospital if possible. CM also discussed possible comfort measures if patient does not qualify for GIP. Spouse verbalized understanding. States she does not want patient to return to [facility]. CM explained that patient may within hours or days. Verbalized understanding. CM offered choices. Obtained [facility] for any in network hospice agency. CM faxed referral to [facility] and notified Lisandro of referral. CM to f/u. Addendum: 05/11/24 at 1716 by JESE YARBROUGH CM Amended: Links added.
[2024-05-11] MEDS: INSULIN humuLIN R 100 UNIT/ML 3ML SQ SCH (18:00)
--- NOTE | 2024-05-11 19:20 | PN ---
INFECTIOUS DISEASE PROGRESS NOTE Date of Service: May 11, 2024 SUBJECTIVE: This is an 83-year-old male patient who was sent over from the custodial for chief complaint of coffee-ground emesis and weakness. On admission patient was hypotensive with BP of 80s/40s and was admitted to the ICU for vasopressor support. Patient was seen and examined in the ICU room 218. Patient has been evaluated by Gastroenterology and is pending an EGD/colonoscopy if cleared by Cardiology due to patient's heart history and currently on vasopressor support. Patient had a low-grade fever of 99.9, the WBC however has trended down to 12.2. Hemoglobin remains low at 7.1. We will continue on Meropenem renal dosing. Nursing reported patient has been having muscle spasms especially to lower extremities. We will start patient on baclofen 5 mg p.o. b.i.d.. We will continue to monitor patient's care. PHYSICAL EXAM EYES: Anicteric. Pupils equal and reactive. HENT: No oral thrush seen, moist Oral mucosa. NECK: Supple, no JVD or thyromegaly. LUNGS: Good air entry. No rales, no rhonchi. Oxygen support. CARDIOVASCULAR: S1, S2 regular. No murmur heard. ABDOMEN: Soft, non tender, bowel sounds present, no organomegaly. CENTRAL NERVOUS SYSTEM: Awake, alert, oriented x 3. SKIN: No rashes, no swelling. Pale LYMPHATICS: No peripheral lymphadenopathy. MUSCULOSKELETAL: No joint swelling, erythema or tenderness. EXTREMITIES: No cyanosis or clubbing. Muscle spasms to lower extremities. BACK: No deformity, no pressure ulcer. GENITOURINARY: No dysuria or hematuria. Vital Sign (Last 12 Hours) 05/11/24 05/11/24 05/11/24 05/11/24 07:46 07:46 08:47 08:47 Pulse 117 117 86 86 Resp 26 B/P (MAP) 101/43 (62) 101/43 (62) 72/38 (49) 72/38 (49) 127/33 (64) 127/33 (64) 83/23 (43) 83/23 (43) Pulse Ox 97 97 98 98 05/11/24 05/11/24 05/11/24 05/11/24 09:00 09:13 09:13 09:46 Pulse 89 107 107 106 Resp 23 21 21 19 B/P (MAP) 88/25 (46) 106/49 (68) 106/49 (68) 101/58 (72) 134/37 (69) 134/37 (69) 145/39 (74) Pulse Ox 98 99 99 97 05/11/24 05/11/24 05/11/24 05/11/24 09:46 10:05 10:46 10:46 Temp 99.9 Pulse 106 104 104 Resp 19 20 20 B/P (MAP) 101/58 (72) 101/58 92/48 (63) 92/48 (63) 145/39 (74) 122/40 (67) 122/40 (67) Pulse Ox 97 100 100 05/11/24 05/11/24 05/11/24 05/11/24 11:00 11:46 12:46 13:00 Temp 99.9 Pulse 103 109 108 89 Resp 22 20 21 28 B/P (MAP) 119/38 (65) 111/52 (71) 106/54 (71) 104/36 (58) 135/39 (71) 146/46 (79) Pulse Ox 100 97 96 94 05/11/24 05/11/24 05/11/24 05/11/24 13:46 14:05 14:27 14:46 Pulse 96 108 100 Resp 21 18 24 B/P (MAP) 97/43 (61) 97/43 116/63 (80) 111/36 (61) 142/41 (74) Pulse Ox 92 98 O2 Delivery N/Cannula Low lpm O2 Flow Rate 3.0 FiO2 32 05/11/24 05/11/24 05/11/24 14:46 15:00 16:16 Pulse 104 Resp 14 B/P (MAP) 97/43 135/40 (71) 93/36 Pulse Ox 98 Intake & Output (last 24hrs) 05/10/24 05/10/24 05/11/24 15:00 23:00 07:00 Intake Total 1206.8 ml 1704.7 ml 819.7 ml Output Total 350 ml 150 ml Balance 1206.8 ml 1354.7 ml 669.7 ml LABS: Laboratory: Test 05/11/24 18:49 05/11/24 16:00 05/11/24 09:49 05/11/24 04:35 Range/Units Whole Blood Glucose 227 H 70-110 MG/DL Stool Occult Blood POSITIVE H NEGATIVE White Blood Count 12.2 H 4.8-10.8 K/uL Red Blood Count 2.44 L 4.50-6.20 MIL/uL Hemoglobin 7.1 L 14.0-18.0 g/dL Hematocrit 21.9 L 42-54 % Mean Corpuscular Volume 89.8 79-99 fL Mean Corpuscular Hemoglobin 29.1 27.0-33.0 pg Mean Corpuscular Hemoglobin Concent 32.4 32.0-36.0 g/dL Red Cell Distribution Width 18.1 H 11.0-15.5 % Platelet Count 203 130-400 K/uL Mean Platelet Volume 11.2 H 7.5-10.5 fL Immature Granulocyte % (Auto) 0.7 0-1 % Neutrophils (%) (Auto) 85.4 H 40.0-77.0 % Lymphocytes (%) (Auto) 6.7 L 21.0-51.0 % Monocytes (%) (Auto) 6.9 3.0-13.0 % Eosinophils (%) (Auto) 0.1 0.0-8.0 % Basophils (%) (Auto) 0.2 0.0-5.0 % Neutrophils # (Auto) 10.4 H 1.8-7.7 K/uL Lymphocytes # (Auto) 0.8 L 1.0-4.8 K/uL Monocytes # (Auto) 0.8 0.1-1.0 K/uL Eosinophils # (Auto) 0.01 0.00-0.70 K/uL Basophils # (Auto) 0.02 0.00-0.20 K/uL Absolute Immature Granulocyte (auto 0.09 0-1 K/uL Nucleated Red Blood Cells 0.2 H 0.0-0.19 % Sodium Level 143 136-145 mmol/L Potassium Level 4.1 3.5-5.1 mmol/L Chloride Level 111 101-111 mmol/L Carbon Dioxide Level 19 L 21-32 mmol/L Blood Urea Nitrogen 80 *H 7-18 mg/dL Creatinine 3.6 H 0.5-1.3 mg/dL Glomerular Filtration Rate Calc 16 >90 mL/min Random Glucose 227 H 70-105 mg/dL Total Calcium 7.7 L 8.5-10.1 mg/dL Total Bilirubin 0.5 0.2-1.0 mg/dL Aspartate Amino Transf (AST/SGOT) 200 H 10-37 U/L Alanine Aminotransferase (ALT/SGPT) 280 H 12-78 U/L Alkaline Phosphatase 101 50-136 U/L Troponin I High Sensitivity 6323 *H 4-75 ng/L B-Type Natriuretic Peptide 2150 H 0-100 pg/mL Total Protein 5.2 L 6.0-8.3 g/dL Albumin 1.9 L 3.5-5.0 g/dL Red Blood Cell Morphology See comments Prothrombin Time 15.1 H 9.6-11.6 SEC Prothromb Time International Ratio 1.39 H 0.85-1.15 Magnesium Level 1.80 1.80-2.40 mg/dL Test 05/10/24 22:53 05/10/24 18:00 05/10/24 15:54 05/10/24 08:52 Range/Units Activated Partial Thromboplast Time 34.7 26.3-35.5 SEC Fibrinogen 266 180-350 mg/dL Blood Gas Specimen Type Arterial Arterial Blood pH 7.343 L 7.350-7.450 Arterial Blood Partial Pressure CO2 34 L 35-48 mmHg Arterial Blood Partial Pressure O2 58.9 L 83.0-108.0 mmHg Arterial Blood HCO3 18.1 L 21.0-28.0 mmol/L Arterial Blood Oxygen Saturation 87.1 L 94.0-98.0 % Arterial Blood Base Excess -7.0 L -2.0-3.0 mmol/L Hemoglobin (Blood Gas) 7.5 L 13.5-17.5 g/dL Sodium (Blood Gas) 139 136-145 MMOL/L Bedside Potassium (Blood Gas) 4.1 3.4-4.5 MMOL/L Bedside Chloride (Blood Gas) 109 H 98-107 MMOL/L Bedside Glucose (Blood Gas) 47 *L 65-95 MG/DL Bedside Ionized Calcium (Blood Gas) 1.12 L 1.15-1.33 MMOL/L Bedside Lactic Acid (Blood Gas) 2.17 H 0.36-0.75 MMOL/L Blood Gas Temperature 37.0 35.5-37.0 CELSIUS Blood Gas Vent Mode NC ROOM AIR FiO2 32.0 % Blood Gas Specimen Comment SCAR MARIN Bedside Glucose Comment Notified Nurse SARS-CoV-2 Antigen (Rapid) PRESUMPTIVE NEGATIVE NEGATIVE Test 05/10/24 03:55 Range/Units Hemoglobin A1c 6.7 H 4.8-5.6 % ASSESSMENT: Gastrointestinal bleeding. Pneumonia. Hypotension. [id number] myocardial infarction. Severe Anemia, requiring blood transfusion. Acute on chronic renal failure. Diabetes mellitus. Muscle spasms. PLAN: Continue Meropenem. Continue Protonix. We will monitor hemoglobin and hematocrit. Continue vasopressor support. Continue oxygen support. GI has evaluated patient and is pending an EGD/colonoscopy if cleared by Cardiology. Glucometer checks a.c./hs and cover with insulin per sliding scale protocol. Start baclofen 5 mg p.o. b.i.d.. This case was reviewed and discussed with my supervising physician and the above assessment and plan was formulated and agreed upon. ATTESTATION BY PHYSICIAN I have seen and examined the patient. I reviewed the documentation, medical decision making, and treatment plan as noted by the mid-level provider above. I agree with the findings and plan of care. AURORA TERAN MD, [facility] May 11, 2024 19:20
[2024-05-11] MEDS: NYSTatin 15 GM POWDER TP SCH (20:36)
[2024-05-11] MEDS: SODIUM BICARBONATE 650 MG TAB PO SCH (20:36)
[2024-05-12] VITALS (105 sets, daily range): BP systolic 34–145; BP diastolic 0–65; PULSE 68–103; RESP 5–37; TEMP 96.8–98.4; O2SAT 93–98
[2024-05-12] MEDS: VASOpressin 20 UNITS/ML 1ML Vi 20 UNITS in 0.9%NACL 100ML 100 ML IV SCH (00:18)
[2024-05-12 06:18] LABS: BASOPHILS # (AUTO) 0.02 K/uL (0.00-0.20); BASOPHILS % (AUTO) 0.2 % (0.0-5.0); EOSINOPHILS # (AUTO) 0.13 K/uL (0.00-0.70); EOSINOPHILS % (AUTO) 1.4 % (0.0-8.0); HEMATOCRIT 22.8 % (42-54); IMMATURE GRANULOCYTE ABSOLUTE 0.06 K/uL (0-1); LYMPHOCYTES % (AUTO) 10.4 % (21.0-51.0); MEAN CORPUSCULAR HEMOGLOBIN 28.9 pg (27.0-33.0); MEAN CORPUSCULAR VOLUME 90.1 fL (79-99); MONOCYTES # (AUTO) 0.8 K/uL (0.1-1.0); MONOCYTES % (AUTO) 7.9 % (3.0-13.0); NEUTROPHILS # (AUTO) 7.6 K/uL (1.8-7.7); NEUTROPHILS % (AUTO) 79.5 % (40.0-77.0); NUCLEATED RED BLOOD CELLS 0.2 % (0.0-0.19); PLATELET COUNT (AUTO) 206 K/uL (130-400); RED BLOOD CELL COUNT(AUTO) 2.53 MIL/uL (4.50-6.20); RED CELL DISTRIBUTION WIDTH 18.9 % (11.0-15.5); WHITE BLOOD COUNT (AUTO) 9.5 K/uL (4.8-10.8)
[2024-05-12 06:39] LABS: CREATININE 3.5 mg/dL (0.5-1.3); POTASSIUM 4.2 mmol/L (3.5-5.1)
--- NOTE | 2024-05-12 08:04 | NUR ---
GIP ADMISSION PENDING Sw spoke to Lisandro who states he met with but she was not ready for pt to be admitted. wanted to speak with family first. Lisandro to f/u with this am for possible admission today.
--- NOTE | 2024-05-12 09:27 | PN ---
PROGRESS NOTE Date of Service: May 12, 2024 Time of Service: 09:23 SUBJECTIVE: No new concerns.patient continues in the ICU setting no change in status. Urine output 1350cc in the last 24hours. No acute events reported in the last 24 hours. REVIEW OF SYSTEMS unable to assess to current status and mentation PHYSICAL EXAM EYES: Anicteric HENT: No oral thrush seen, moist Oral mucosa NECK: Supple, no JVD or thyromegaly. LUNGS: Good air entry. CARDIOVASCULAR: S1, S2 regular. ABDOMEN: Soft, non tender, ABS CENTRAL NERVOUS SYSTEM: Awake chronically ill appearance SKIN: No rashes, no swelling. LYMPHATICS: No peripheral lymphadenopathy MUSCULOSKELETAL: No joint swelling, erythema or tenderness. EXTREMITIES: No cyanosis or clubbing BACK: No deformity, no pressure ulcer. GENITOURINARY: No dysuria or hematuria Vital Signs (last 8hr) Date Time Temp Pulse Resp B/P (MAP) Pulse Ox O2 Delivery O2 Flow Rate FiO2 05/12/24 08:29 98 Nasal Cannula* 4 36 05/12/24 08:00 98.1 81 15 133/47 (75) 98 05/12/24 07:46 82 14 105/44 (64) 97 122/45 (70) 05/12/24 07:15 79 15 115/43 (67) 98 05/12/24 07:07 81 16 N/Cannula Low lpm 3.0 32 05/12/24 07:00 81 14 118/44 (68) 98 05/12/24 06:46 84 15 99/41 (60) 97 125/46 (72) 05/12/24 06:45 86 14 121/45 (70) 98 05/12/24 06:30 83 15 117/43 (67) 97 05/12/24 06:15 87 18 128/46 (73) 97 05/12/24 06:12 95 16 96/65 (75) 98 139/48 (78) 05/12/24 06:00 86 15 145/47 (79) 98 05/12/24 05:47 68 21 74/37 (49) 92 88/37 (54) 05/12/24 05:45 76 19 34/0 (11) 97 05/12/24 05:30 83 15 122/46 (71) 96 05/12/24 05:15 83 14 126/47 (73) 96 05/12/24 05:00 83 15 128/47 (74) 96 05/12/24 04:30 97.9 82 15 132/46 (74) 97 05/12/24 04:15 87 15 131/49 (76) 96 05/12/24 04:00 88 14 129/47 (74) 97 05/12/24 04:00 96 Nasal Cannula* 4 36 05/12/24 03:46 86 16 98/37 (57) 80 116/39 (64) 05/12/24 03:45 86 17 119/37 (64) 94 05/12/24 03:30 85 15 120/36 (64) 97 05/12/24 03:15 87 5 118/37 (64) 97 05/12/24 03:00 89 10 120/38 (65) 97 05/12/24 02:46 84 12 99/48 (65) 96 118/36 (63) 05/12/24 02:45 92 18 124/39 (67) 97 05/12/24 02:30 90 14 121/39 (66) 97 05/12/24 02:15 91 15 123/39 (67) 96 05/12/24 02:00 88 11 127/40 (69) 95 05/12/24 01:46 92 9 103/51 (68) 96 122/39 (66) 05/12/24 01:45 96 14 130/41 (70) 96 05/12/24 01:30 91 14 120/39 (66) 96 LABS: Laboratory: Test 05/12/24 06:05 05/11/24 23:33 05/11/24 16:00 05/11/24 09:49 Range/Units White Blood Count 9.5 4.8-10.8 K/uL Red Blood Count 2.53 L 4.50-6.20 MIL/uL Hemoglobin 7.3 L 14.0-18.0 g/dL Hematocrit 22.8 L 42-54 % Mean Corpuscular Volume 90.1 79-99 fL Mean Corpuscular Hemoglobin 28.9 27.0-33.0 pg Mean Corpuscular Hemoglobin Concent 32.0 32.0-36.0 g/dL Red Cell Distribution Width 18.9 H 11.0-15.5 % Platelet Count 206 130-400 K/uL Mean Platelet Volume 10.6 H 7.5-10.5 fL Immature Granulocyte % (Auto) 0.6 0-1 % Neutrophils (%) (Auto) 79.5 H 40.0-77.0 % Lymphocytes (%) (Auto) 10.4 L 21.0-51.0 % Monocytes (%) (Auto) 7.9 3.0-13.0 % Eosinophils (%) (Auto) 1.4 0.0-8.0 % Basophils (%) (Auto) 0.2 0.0-5.0 % Neutrophils # (Auto) 7.6 1.8-7.7 K/uL Lymphocytes # (Auto) 1.0 1.0-4.8 K/uL Monocytes # (Auto) 0.8 0.1-1.0 K/uL Eosinophils # (Auto) 0.13 0.00-0.70 K/uL Basophils # (Auto) 0.02 0.00-0.20 K/uL Absolute Immature Granulocyte (auto 0.06 0-1 K/uL Nucleated Red Blood Cells 0.2 H 0.0-0.19 % Sodium Level 144 136-145 mmol/L Potassium Level 4.2 3.5-5.1 mmol/L Chloride Level 113 H 101-111 mmol/L Carbon Dioxide Level 22 21-32 mmol/L Blood Urea Nitrogen 76 *H 7-18 mg/dL Creatinine 3.5 H 0.5-1.3 mg/dL Glomerular Filtration Rate Calc 17 >90 mL/min Random Glucose 235 H 70-105 mg/dL Total Calcium 7.5 L 8.5-10.1 mg/dL Whole Blood Glucose 232 H 70-110 MG/DL Stool Occult Blood POSITIVE H NEGATIVE Total Bilirubin 0.5 0.2-1.0 mg/dL Aspartate Amino Transf (AST/SGOT) 200 H 10-37 U/L Alanine Aminotransferase (ALT/SGPT) 280 H 12-78 U/L Alkaline Phosphatase 101 50-136 U/L Troponin I High Sensitivity 6323 *H 4-75 ng/L B-Type Natriuretic Peptide 2150 H 0-100 pg/mL Total Protein 5.2 L 6.0-8.3 g/dL Albumin 1.9 L 3.5-5.0 g/dL Test 05/11/24 04:35 05/10/24 22:53 05/10/24 18:00 1/8/25 15:54 Range/Units Red Blood Cell Morphology See comments Prothrombin Time 15.1 H 9.6-11.6 SEC Prothromb Time International Ratio 1.39 H 0.85-1.15 Magnesium Level 1.80 1.80-2.40 mg/dL Activated Partial Thromboplast Time 34.7 26.3-35.5 SEC Fibrinogen 266 180-350 mg/dL Blood Gas Specimen Type Arterial Arterial Blood pH 7.343 L 7.350-7.450 Arterial Blood Partial Pressure CO2 34 L 35-48 mmHg Arterial Blood Partial Pressure O2 58.9 L 83.0-108.0 mmHg Arterial Blood HCO3 18.1 L 21.0-28.0 mmol/L Arterial Blood Oxygen Saturation 87.1 L 94.0-98.0 % Arterial Blood Base Excess -7.0 L -2.0-3.0 mmol/L Hemoglobin (Blood Gas) 7.5 L 13.5-17.5 g/dL Sodium (Blood Gas) 139 136-145 MMOL/L Bedside Potassium (Blood Gas) 4.1 3.4-4.5 MMOL/L Bedside Chloride (Blood Gas) 109 H 98-107 MMOL/L Bedside Glucose (Blood Gas) 47 *L 65-95 MG/DL Bedside Ionized Calcium (Blood Gas) 1.12 L 1.15-1.33 MMOL/L Bedside Lactic Acid (Blood Gas) 2.17 H 0.36-0.75 MMOL/L Blood Gas Temperature 37.0 35.5-37.0 CELSIUS Blood Gas Vent Mode NC ROOM AIR FiO2 32.0 % Blood Gas Specimen Comment SCAR MARIN Bedside Glucose Comment Notified Nurse DIAGNOSTICS / RADIOLOGY: CHEST 1VW HISTORY: Line placement COMPARISON: 05/09/2024 FINDINGS: A frontal projection of the chest was obtained. There are bilateral pulmonary infiltrates suggestive of pulmonary vascular congestion with possible superimposed pneumonitis. Poststernotomy changes are seen. The heart is enlarged. Degenerative changes of the thoracolumbar spine are present. Evaluation of the venous catheter is limited. There is questionable left venous catheter in the left neck area with tip in the left axilla and clinical correlation is recommended. No evidence of aortic calcification is seen. IMPRESSION: 1. Bilateral pulmonary infiltrates are seen suggestive of pulmonary vascular congestion with possible superimposed pneumonitis. ASSESSMENT: СВЕТЛАНА on CKD unknown creatinine 3.4 BUN of 66 renal function 17, likely ATN hypovolemia dehydration Diabetes mellitus type 2 Anemia Hyperkalemia Dehydration metabolic acidosis PLAN: No change in POC, started on diuretic Monitor renal function; no change in the last 24hours Monitor I's and O's: urine o/p has improved monitor Continue IV fluids at the moment Dose of renal clearance Monitor Electrolytes Fluid intake 1.2 L daily Avoid NSAIDs and nephrotoxins started on sodium bicarbonate JI ARITA May 12, 2024 09:27
--- NOTE | 2024-05-12 10:11 | NUR ---
SS f/u SW spoke to Lisandro who met with , daughter and grand daughter at bedside. Family waiting on son in [place] and daughter who is out of town to agree to hospice. Lisandro to f/u Sw met with family at bedside. Pt moaning, states he does not want to be in pain anymore, he does not want anyone touching him, "it hurts me". pt telling family that he wants to , does not want to be in pain anymore. Family tries to comfort him, and he asked they to leave and and let him rest. Daughter states they are trying to get response from siblings and hope to get it this afternoon.
--- NOTE | 2024-05-12 11:38 | PN ---
[facility] PROGRESS NOTE Date Patient Seen: May 12, 2024 Time of Visit: 11:38 Supervising Physician:Dr. Raymond Primary Care Physician: Dr. Sylvia Lane Outpatient Specialists: Field Sales Agent: Angel Diaz MD Inpatient Consults: Cardiology PROBLEM LIST: Acute NSTEMI POA Cardiogenic shock POA. Acute GI bleed POA, probably secondary to oral anticoagulation therapy. . Acute blood loss anemia Acute sepsis from unknown source POA. Acute constipation POA. Acute on chronic combined systolic and diastolic congestive heart failure Paroxysmal atrial fibrillation on chronic anticoagulation with Eliquis, to be on hold Hyperkalemia. HTN HLD DM2 CKD stage IIIB CAD s/p CABG in the remote past Recurrent CVAs JACK hx R CEA Pulmonary hypertension Dementia INTERVAL HISTORY: 05/09/24: HPI: This is a 83-year-old male patient who is not a good historian due to his current condition, age in mental status. He resides at a local correction facility [facility]. The patient has past medical history that is significant for HTN, HLD, DM2, CKD stage IIIB, CAD s/p CABG ecurrent CVA with new onset right side weakness, JACK hx R CEA, Paroxysmal atrial fibrillation on chronic anticoagulation with Eliquis, chronic combined systolic/diastolic heart failure, NSTEMI, and dementia. The patient was sent from the correction facility via EMS due to report of coffee-ground emesis and abdominal discomfort. Upon entry to the emergency department, vital signs was significant for hypotension systolic of 80/42 that had started since the morning. Of note, the patient is on anticoagulation therapy with apixaban and antiplatelet therapy with Plavix which may have been the culprit. ED workup showed laboratory data indicating a WBC of 11.6, H&H 7.24/22.7 and a platelet count of 238. Chemistry panel was significant for a elevated potassium of 5.4, BUN 59, creatinine of 2.9 and a GFR of 21. Keaton troponin of 1870 and a BNP of 1140. Imaging of the chest showed bilateral pulmonary infiltrates and abdomen showed bilateral pleural effusions with compressive atelectasis. Gastric distention with small bowel dilatation and fluid filled may be related to enteritis. There was large amount of fecal material seen in the colon and there was also presence of diverticulosis. Because of the above findings, the patient was admitted for further inpatient evaluation and management of his condition. [facility] seal delivery vehicle officer was consulted due to the GI bleed with subsequent hypotension requiring vasopressor therapy. 05/10/2024: At the time of my evaluation, the patient was lying in bed. Per the staff nurse, no acute events overnight. Vital signs obtained were stable. Laboratory data of significance showed a WBC count of 18.6, H and H 7.4/22.4 and a platelet count of 242. Chemistry panel showed a sodium of 141, potassium 5.2, chloride 107, CO2 of 20, BUN is 66, creatinine of 3.4, random glucose of 322 total calcium of 8.4. And increased troponin to 9057. The patient continues on octreotide and pantoprazole infusion. He is also on meropenem for antibiotic coverage. He continues on vasopressin and norepinephrine drip. No other complaint. 05/11/2024: At the time of my evaluation, the patient was lying in bed. He remains on Lasix., also on vasopressin and norepinephrine. He was given Precedex for anxiolytic management currently, the patient is on IV antibiotics guided by the Infectious Disease specialist and continue on Protonix and octreotide drip. He still remains critically ill. Family members were present at the bedside. No new complaints. 05/12/2024: At the time of my evaluation, the staff nurse reports no acute events overnight. Vital signs was generally stable. Laboratory data shows low trending H and H 7.3/22.8 count , platelet count of 206. Chemistry panel showed elevated renal parameters with a BUN of 7.6, creatinine of 3.5 and a GFR of 17. No new complaint. REVIEW OF SYSTEMS: 12 point ROS reviewed with patient. Pertinent positives mentioned above. Otherwise negative. PHYSICAL EXAM: GENERAL: alert, weak, awake oriented x 3 HEENT: EOMI, Sclera non icteric, moist mucosa NECK: Supple, no JVD, trachea midline LUNGS: Diminished lung sounds. No wheezes HEART: Regular rate and rhythm. Normal S1 and S2, without murmurs ABD: Abdomen soft, nontender. Bowel sounds present EXT: No clubbing cyanosis or edema NEURO: Alert and oriented to person, able to follow simple commands Vital Signs (last 8hr) Date Time Temp Pulse Resp B/P (MAP) Pulse Ox O2 Delivery O2 Flow Rate FiO2 05/12/24 11:00 96.8 78 13 116/37 (63) 97 05/12/24 10:45 80 13 116/35 (62) 98 05/12/24 10:30 79 15 116/36 (62) 96 05/12/24 10:15 81 13 113/35 (61) 96 05/12/24 10:00 82 18 118/36 (63) 96 05/12/24 09:46 81 17 109/50 (69) 96 115/36 (62) 05/12/24 09:45 81 14 115/37 (63) 97 05/12/24 09:30 81 18 108/36 (60) 93 05/12/24 09:15 80 18 116/39 (64) 97 05/12/24 09:00 78 15 122/44 (70) 98 05/12/24 08:46 84 15 93/55 (68) 97 128/47 (74) 05/12/24 08:45 85 15 126/47 (73) 98 05/12/24 08:30 79 14 121/45 (70) 98 05/12/24 08:29 98 Nasal Cannula* 4 36 05/12/24 08:15 86 17 120/45 (70) 99 05/12/24 08:00 98.1 81 15 133/47 (75) 98 05/12/24 07:46 82 14 105/44 (64) 97 122/45 (70) 05/12/24 07:15 79 15 115/43 (67) 98 05/12/24 07:07 81 16 N/Cannula Low lpm 3.0 32 05/12/24 07:00 81 14 118/44 (68) 98 05/12/24 06:46 84 15 99/41 (60) 97 125/46 (72) 05/12/24 06:45 86 14 121/45 (70) 98 05/12/24 06:30 83 15 117/43 (67) 97 05/12/24 06:15 87 18 128/46 (73) 97 05/12/24 06:12 95 16 96/65 (75) 98 139/48 (78) 05/12/24 06:00 86 15 145/47 (79) 98 05/12/24 05:47 68 21 74/37 (49) 92 88/37 (54) 05/12/24 05:45 76 19 34/0 (11) 97 05/12/24 05:30 83 15 122/46 (71) 96 05/12/24 05:15 83 14 126/47 (73) 96 05/12/24 05:00 83 15 128/47 (74) 96 05/12/24 04:30 97.9 82 15 132/46 (74) 97 05/12/24 04:15 87 15 131/49 (76) 96 05/12/24 04:00 88 14 129/47 (74) 97 05/12/24 04:00 96 Nasal Cannula* 4 36 05/12/24 03:46 86 16 98/37 (57) 80 116/39 (64) 05/12/24 03:45 86 17 119/37 (64) 94 LABS: Hematology Labs: Test 05/12/24 11:06 05/12/24 06:05 05/11/24 04:35 Range/Units Hemoglobin 7.1 L 14.0-18.0 g/dL White Blood Count 9.5 4.8-10.8 K/uL Red Blood Count 2.53 L 4.50-6.20 MIL/uL Hematocrit 22.8 L 42-54 % Mean Corpuscular Volume 90.1 79-99 fL Mean Corpuscular Hemoglobin 28.9 27.0-33.0 pg Mean Corpuscular Hemoglobin Concent 32.0 32.0-36.0 g/dL Red Cell Distribution Width 18.9 H 11.0-15.5 % Platelet Count 206 130-400 K/uL Mean Platelet Volume 10.6 H 7.5-10.5 fL Immature Granulocyte % (Auto) 0.6 0-1 % Neutrophils (%) (Auto) 79.5 H 40.0-77.0 % Lymphocytes (%) (Auto) 10.4 L 21.0-51.0 % Monocytes (%) (Auto) 7.9 3.0-13.0 % Eosinophils (%) (Auto) 1.4 0.0-8.0 % Basophils (%) (Auto) 0.2 0.0-5.0 % Neutrophils # (Auto) 7.6 1.8-7.7 K/uL Lymphocytes # (Auto) 1.0 1.0-4.8 K/uL Monocytes # (Auto) 0.8 0.1-1.0 K/uL Eosinophils # (Auto) 0.13 0.00-0.70 K/uL Basophils # (Auto) 0.02 0.00-0.20 K/uL Absolute Immature Granulocyte (auto 0.06 0-1 K/uL Nucleated Red Blood Cells 0.2 H 0.0-0.19 % Red Blood Cell Morphology See comments Chemistry Labs: Test 05/12/24 11:09 05/12/24 06:05 05/11/24 09:49 05/11/24 04:35 Range/Units Whole Blood Glucose 246 H 70-110 MG/DL Sodium Level 144 136-145 mmol/L Potassium Level 4.2 3.5-5.1 mmol/L Chloride Level 113 H 101-111 mmol/L Carbon Dioxide Level 22 21-32 mmol/L Blood Urea Nitrogen 76 *H 7-18 mg/dL Creatinine 3.5 H 0.5-1.3 mg/dL Glomerular Filtration Rate Calc 17 >90 mL/min Random Glucose 235 H 70-105 mg/dL Total Calcium 7.5 L 8.5-10.1 mg/dL Total Bilirubin 0.5 0.2-1.0 mg/dL Aspartate Amino Transf (AST/SGOT) 200 H 10-37 U/L Alanine Aminotransferase (ALT/SGPT) 280 H 12-78 U/L Alkaline Phosphatase 101 50-136 U/L Troponin I High Sensitivity 6323 *H 4-75 ng/L B-Type Natriuretic Peptide 2150 H 0-100 pg/mL Total Protein 5.2 L 6.0-8.3 g/dL Albumin 1.9 L 3.5-5.0 g/dL Magnesium Level 1.80 1.80-2.40 mg/dL Test 05/10/24 15:54 Range/Units Bedside Glucose Comment Notified Nurse Coagulation Labs: Test 05/11/24 04:35 05/10/24 22:53 Range/Units Prothrombin Time 15.1 H 9.6-11.6 SEC Prothromb Time International Ratio 1.39 H 0.85-1.15 Activated Partial Thromboplast Time 34.7 26.3-35.5 SEC Fibrinogen 266 180-350 mg/dL DIAGNOSTICS / RADIOLOGY RESULTS: [ ] PLAN 05/09/24: The patient was admitted and BAL was consulted for ICU upgrade. The patient was started on Levophed. In the emergency department, the patient did receive fluid resuscitation with IV NS 1 L bolus. The patient did receive a dose of IV Rocephin. I am going to continue with IV cefepime, we will request blood cultures x2. We will request a MRSA nasal swab. We will order additional vasopressor therapy if hypotension persists. We will monitor the H&H and we will transfuse as necessary. Orders are in place for occult blood in stool. The patient will remain nothing by mouth. We will monitor the trend and maintain map above 65. We will follow the troponins x2 more sets. Cardiology consult is in place as well as Nephrology consultation. Patient was started on antibiotic therapy. Going to repeat surveillance labs in the morning. We will continue provide general supportive care, GI and DVT prophylaxis. Further orders per attending MD and hospital course. 05/10/2024: For now, we are going to continue current management for the patient. We will continue antibiotic coverage as ordered. We will continue to monitor the H&H and we will transfuse as necessary. The patient continue on pressor therapy and may require central line placement. Gastroenterology was consulted on the case and awaiting patient's stability to take the patient for endoscopic evaluation. In the meantime, the patient will continue on octreotide and Protonix. We will follow the recommendation of the method consultant. Patient currently not a candidate for blood thinners/anti-platelet therapy. Because of the low blood pressure trend we will avoid metoprolol and HIMANSHU inhibitors. We will monitor the patient's progress and response to management. We will continue to provide general supportive care, GI and DVT prophylaxis. Further orders per attending MD and hospital course. 05/11/2024: For now, we are going to continue the patient management. He will continue on antibiotic therapy as ordered, Lasix drip and pressor therapy with addition of anxiolytic Precedex. for hypotension management. I am going to repeat surveillance labs management to follow the H&H trend as well as the renal parameters. We will follow the recommendation treating specialist. The patient needs to undergo EGD as colonoscopy evaluation. Unfortunately he is not stable enough to undergo this procedure. We will await for clearance. Patient complains of involuntary lower extremity muscular spasms. He was started on baclofen 5 mg p.o. b.i.d. we will follow management. Appreciate the input of the treating specialist. We will continue to provide general supportive care, GI and DVT prophylaxis. Further orders per attending MD and hospital course. 05/12/2024: For now, we are going to continue current management for the patient. Per the shutdown coordinator, the patient is not a candidate for any cardiac interventions due to his renal condition. Also, the patient is not a candidate for any gastroenterology intervention due to his NSTEMI. The patient extreme high risk of mortality and very poor prognosis. Recommended consider palliative/hospice care. We will continue current management for the patient and follow the recommendation of the treating specialist. We will continue to provide general supportive care, GI and DVT prophylaxis. Further orders per attending MD and hospital course. NEURO: Minimize central acting medications as possible. Fall Precautions. Well lighted room through the day and minimize interruptions through the night to prevent acute delirium. PULMONARY: Supplemental 02 as needed Titrate Fio2 to keep Spo2 > or = 90% DuoNebs and CPT as needed IS hourly while awake for pulmonary hygiene Out of bed to chair as tolerated CARDIOVASCULAR: Follow hemodynamics. Titrate vasopressor to keep MAP >65 or systolic blood pressure >95mmHg DIPS: Levophed LINES: Peripheral IVs GI & NUTRITION: Continue nutritional support Aspirations precautions Prokinetic agents and laxatives as needed KIDNEYS & ELECTROLYTES: Strict monitoring of intake and output Daily weights Avoid nephrotoxic agents Monitor electrolytes and replace as needed Goal urine output of 30mL/hr or 0.5mL/kg/hr Urine output: [ ] Fluid Balance: [ ] ENDOCRINE: Maintain blood glucose between 100-180 at all times. Insulin sliding scale for blood glucose management INFECTIOUS DISEASE: Trend temperature. Zapata-culture if febrile. Micro: Blood cultures to be sent and pending UA. Antibiotics: Cefepime 1 g daily HEMATOLOGY & COAGULATION: Monitor H&H. Keep Hgb > 7 Transfuse 1 unit of PRBC for Hgb < 7 Transfuse 1 pack of platelets of platelets < 20, 000 Watch for any signs and symptoms of bleeding SKIN: Pressure ulcer prevention per facility protocol Rehab: PT/OT once acute phase has been stabilized. Prophylaxis: GI: Protonix DVT: Not a candidate for systemic anticoagulation Code Status: Full Resuscitation Disposition: ICU Case was discussed and seen with my supervising physician. The above plan was formulated and agreed upon. Total critical care time: 35 min CARLOS MANUEL NOE NP May 12, 2024 11:38
--- NOTE | 2024-05-12 12:30 | PN ---
Cardiology Progress Note Date of Service: 05/12/2024 Attending Employee Wellness/Fitness Coordinator: Dr. Angel Diaz Reason for Consult: Elevated troponin Problem List: -Multifactorial shock -Sepsis -Leukocytosis -Acute blood loss anemia s/p PRBC transfusion -Acute GI bleed with hematemesis, pending GI evaluation -ACS-NSTEMI -Acute HFrEF (LVEF: 30-35% by echo done 05/10/2024) -Acute on chronic renal insufficiency -Elevated LFTs -Electrolyte derangement -Paroxysmal atrial fibrillation with RVR -Multifactorial encephalopathy -CAD s/p CABG -h/o ischemic CVA s/p stent placement (Wingspan 2.5x15 mm) in the right inferior MCA M2 done on 08/10/2018, with residual right sided hemiparesis -HTN -HLP -DM2 -Dementia -Chronic debility (wheelchair bound) -Octogenarian Subjective: This is an 83 y/o male who was seen and evaluated in the ICU today. The patient remains visibly altered and confused, but through limited conversation complains of abdominal pain and left lower extremity pain due to spasms. He remains on IV vasopressor support with norepinephrine. The patient has been transitioned to DNR/DNI status, and the family is discussing the possibility of transitioning the patient to Palliative Care/Comfort Measures/Hospice. Vitals/Labs Vital Signs Date Time Temp Pulse Resp B/P (MAP) Pulse Ox O2 Delivery O2 Flow Rate FiO2 05/12/24 11:00 96.8 78 13 116/37 (63) 97 05/12/24 08:29 Nasal Cannula* 4 36 General: Altered and confused. No acute distress. Ill appearing. Pale, deconditioned. HEENT: Normocephalic, atraumatic. EOMI. Oral mucosa was moist. Neck: No masses, JVD, or carotid bruits. Lungs: SCM. Bilateral air entry. Coarse breath sounds noted throughout. Cardio: Irregularly, irregular rate and rhythm. Abdomen: Soft, nontender, nondistended. No organomegaly. Normoactive bowel sounds x 4 quadrants. Extremities. No edema, clubbing, or cyanosis. Diminished pulses noted throughout. Muscle atrophy noted. Neuro: Cranial nerves II through XII are grossly intact. No new focal deficits identified. Laboratory Tests 05/11/24 23:34 05/12/24 06:05 05/12/24 11:06 Assessment: -Multifactorial shock -Sepsis -Leukocytosis -Acute blood loss anemia s/p PRBC transfusion -Acute GI bleed with hematemesis, pending GI evaluation -ACS-NSTEMI -Acute HFrEF (LVEF: 30-35% by echo done 05/10/2024) -Acute on chronic renal insufficiency -Elevated LFTs -Electrolyte derangement -Paroxysmal atrial fibrillation with RVR -Multifactorial encephalopathy -CAD s/p 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 ACS-NSTEMI -HS troponin I peak: 41202 -Unfortunately the patient is not a candidate for conservative medical therapy, much less further ischemic cardiac evaluation due to current critical state. -He is not a candidate for conservative medical therapy with antiplatelet therapy due to his acute GI bleed, he is not a candidate for BB therapy due to the need for IV vasopressor support, and he is not a candidate for statin therapy due to his elevated LFTs. -He is not a candidate for further ischemic evaluation due to his acute GI bleed as he would require antiplatelet therapy and anticoagulation. -In addition, his advanced renal dysfunction, which places him at an increased risk of developing contrast induced nephropathy resulting in worsening renal dysfunction/renal failure and likelihood of requiring hemodialysis. 2. Acute HFrEF (LVEF: 30-35% by echo done 05/10/2024) -24H urine output: 1350 mL -24H fluid balance: +1326.3 mL -The patient will continue on the continuous IV furosemide infusion at 2.5mg/hr in order to target a 1-2L fluid loss per day. -The patient is not a candidate for GDMT with BB therapy, ACEI/ARB/ARNI therapy, or aldosterone antagonist therapy due to the need for IV vasopressor support. -Please record strict I/O's, daily weights, and restrict fluids to less than 2.0L/day 3. Paroxysmal atrial fibrillation with RVR -Substrate: Dilated atria -Inciting factor: Multiple, including shock, leukocytosis, and anemia -12H telemetry: Atrial fibrillation, HR: 71-94 bpm -The patient is not a candidate for rate control therapy due to the need for IV vasopressor support. -CHADS2 VASc score: 8 points. HAS BLED score: 6 points. The patient is not a candidate for anticoagulation at this time due to the his acute blood loss anemia. -Please keep the patient on continuous telemetry monitoring and maintain electrolytes within normal parameters. The patient has been transitioned to DNR/DNI status and his family is currently discussing the possibility of transitioning to Palliative Care/Comfort Measures. He remains critically ill with an increased risk of in-hospital mortality. This case was discussed with my Supervising Physician, Dr. Angel Diaz, and the above mentioned plan was formulated and agreed upon. -Progress Note written by Иван Rodas, MSN, TECHNICAL WRITER AND EDITOR, AGACNP-BC ИВАН RODAS NP May 12, 2024 12:30
[2024-05-12] MEDS: acetaMINOPHEN 1,000 MG/100 ML VIAL IVPB ONE (14:41)
[2024-05-12] MEDS: BALSAM PERU/CASTOR OIL 60 GM TUBE TP PRN (14:49)
[2024-05-12] MEDS: BACLOFEN 10 MG TABLET PO SCH (14:50)
--- NOTE | 2024-05-12 15:56 | NUR ---
PATIENT C/O OF PAIN TO LEGS. DR TERAN AT BEDSIDE AND ORDERED BACLOFEN BUT PATIENT REFUSED. ACETAMINOPHEN ALSO ORDERED IF AND ADMINISTERED. THIS MORNING DILAUDID ADM FOR PAIN. PT HAD A BOWEL MOVEMENT AND DID NOT WANT TO BE CLEANED UP. SKIN CARE GIVEN. NOW PT DOES NOT WANT US TO TOUCH HIM FOR ANYTHING EVEN WITH AT BEDSIDE.
--- NOTE | 2024-05-12 17:40 | PN ---
INFECTIOUS DISEASE PROGRESS NOTE Date of Service: May 12, 2024 SUBJECTIVE: This is an 83-year-old male patient who was sent over from the group home for chief complaint of coffee-ground emesis and weakness. On admission patient was hypotensive with BP of 80s/40s and was admitted to the ICU for vasopressor support. Patient was seen and examined in the ICU room 218. Patient is awake, alert and able to communicate needs well. Patient reported having pain to lower extremities. We will give a one time dose of acetaminophen IV besides the baclofen 5 mg b.i.d.. Patient still experiencing hypotensive episodes and continues on vasopressor support. Continues on Meropenem renal dosing. We will continue to monitor patient's care. PHYSICAL EXAM EYES: Anicteric. Pupils equal and reactive. HENT: No oral thrush seen, moist Oral mucosa. NECK: Supple, no JVD or thyromegaly. LUNGS: Good air entry. No rales, no rhonchi. Oxygen support. CARDIOVASCULAR: S1, S2 regular. No murmur heard. ABDOMEN: Soft, non tender, bowel sounds present, no organomegaly. CENTRAL NERVOUS SYSTEM: Awake, alert, oriented x 3. SKIN: No rashes, no swelling. Pale LYMPHATICS: No peripheral lymphadenopathy. MUSCULOSKELETAL: No joint swelling, erythema or tenderness. EXTREMITIES: No cyanosis or clubbing. Muscle spasms to lower extremities. BACK: No deformity, no pressure ulcer. GENITOURINARY: No dysuria or hematuria. Vital Sign (Last 12 Hours) 05/12/24 05/12/24 05/12/24 05/12/24 05:45 05:47 06:00 06:12 Pulse 76 68 86 95 Resp 19 21 15 16 B/P (MAP) 34/0 (11) 74/37 (49) 145/47 (79) 96/65 (75) 88/37 (54) 139/48 (78) Pulse Ox 97 92 98 98 05/12/24 05/12/24 05/12/24 05/12/24 06:15 06:30 06:45 06:46 Pulse 87 83 86 84 Resp 18 15 14 15 B/P (MAP) 128/46 (73) 117/43 (67) 121/45 (70) 99/41 (60) 125/46 (72) Pulse Ox 97 97 98 97 1/10/25 05/12/24 05/12/24 05/12/24 07:00 07:07 07:15 07:46 Pulse 81 81 79 82 Resp 14 16 15 14 B/P (MAP) 118/44 (68) 115/43 (67) 105/44 (64) 122/45 (70) Pulse Ox 98 98 97 O2 Delivery N/Cannula Low lpm O2 Flow Rate 3.0 FiO2 32 05/12/24 05/12/24 05/12/24 05/12/24 08:00 08:15 08:29 08:30 Temp 98.1 Pulse 81 86 79 Resp 15 17 14 B/P (MAP) 133/47 (75) 120/45 (70) 121/45 (70) Pulse Ox 98 99 98 98 O2 Delivery Nasal Cannula* O2 Flow Rate 4 FiO2 36 05/12/24 05/12/24 05/12/24 05/12/24 08:45 08:46 09:00 09:15 Pulse 85 84 78 80 Resp 15 15 15 18 B/P (MAP) 126/47 (73) 93/55 (68) 122/44 (70) 116/39 (64) 128/47 (74) Pulse Ox 98 97 98 97 05/12/24 05/12/24 05/12/24 05/12/24 09:30 09:45 09:46 10:00 Pulse 81 81 81 82 Resp 18 14 17 18 B/P (MAP) 108/36 (60) 115/37 (63) 109/50 (69) 118/36 (63) 115/36 (62) Pulse Ox 93 97 96 96 05/12/24 05/12/24 05/12/24 05/12/24 10:15 10:30 10:45 11:00 Temp 96.8 Pulse 81 79 80 78 Resp 13 15 13 13 B/P (MAP) 113/35 (61) 116/36 (62) 116/35 (62) 116/37 (63) Pulse Ox 96 96 98 97 05/12/24 05/12/24 05/12/24 05/12/24 12:00 12:00 12:15 12:30 Pulse 88 84 84 Resp 14 30 16 B/P (MAP) 117/37 (63) 112/37 (62) 111/36 (61) Pulse Ox 97 95 96 96 O2 Delivery Nasal Cannula* O2 Flow Rate 4 FiO2 36 05/12/24 05/12/24 05/12/24 05/12/24 12:45 13:00 13:15 13:30 Pulse 88 90 86 83 Resp 15 17 14 17 B/P (MAP) 112/36 (61) 111/40 (63) 111/35 (60) 111/33 (59) Pulse Ox 96 96 97 96 05/12/24 05/12/24 05/12/24 05/12/24 13:45 14:00 14:15 14:30 Pulse 87 88 87 85 Resp 14 18 15 22 B/P (MAP) 115/37 (63) 122/35 (64) 117/34 (61) 126/38 (67) Pulse Ox 96 95 93 94 05/12/24 05/12/24 05/12/24 05/12/24 14:45 15:00 15:15 15:30 Pulse 83 88 95 90 Resp 18 18 22 18 B/P (MAP) 122/35 (64) 114/34 (60) 114/37 (62) 120/38 (65) Pulse Ox 93 94 100 96 05/12/24 05/12/24 05/12/24 05/12/24 15:45 16:00 16:15 16:30 Temp 98.4 Pulse 85 89 91 90 Resp 17 19 19 15 B/P (MAP) 115/37 (63) 116/38 (64) 105/35 (58) 114/37 (62) Pulse Ox 95 95 94 95 05/12/24 16:30 Pulse Ox 95 O2 Delivery Nasal Cannula* O2 Flow Rate 4 FiO2 36 Intake & Output (last 24hrs) 05/11/24 05/11/24 05/12/24 15:00 23:00 07:00 Intake Total 1032.8 ml 933.7 ml 813.4 ml Output Total 150 ml 1200 ml Balance 1032.8 ml 783.7 ml -386.6 ml LABS: Laboratory: Test 05/12/24 17:03 05/12/24 16:18 05/12/24 06:05 05/11/24 16:00 Range/Units Whole Blood Glucose 146 H 70-110 MG/DL Hemoglobin 7.3 L 14.0-18.0 g/dL Hematocrit 23.0 L 42-54 % White Blood Count 9.5 4.8-10.8 K/uL Red Blood Count 2.53 L 4.50-6.20 MIL/uL Mean Corpuscular Volume 90.1 79-99 fL Mean Corpuscular Hemoglobin 28.9 27.0-33.0 pg Mean Corpuscular Hemoglobin Concent 32.0 32.0-36.0 g/dL Red Cell Distribution Width 18.9 H 11.0-15.5 % Platelet Count 206 130-400 K/uL Mean Platelet Volume 10.6 H 7.5-10.5 fL Immature Granulocyte % (Auto) 0.6 0-1 % Neutrophils (%) (Auto) 79.5 H 40.0-77.0 % Lymphocytes (%) (Auto) 10.4 L 21.0-51.0 % Monocytes (%) (Auto) 7.9 3.0-13.0 % Eosinophils (%) (Auto) 1.4 0.0-8.0 % Basophils (%) (Auto) 0.2 0.0-5.0 % Neutrophils # (Auto) 7.6 1.8-7.7 K/uL Lymphocytes # (Auto) 1.0 1.0-4.8 K/uL Monocytes # (Auto) 0.8 0.1-1.0 K/uL Eosinophils # (Auto) 0.13 0.00-0.70 K/uL Basophils # (Auto) 0.02 0.00-0.20 K/uL Absolute Immature Granulocyte (auto 0.06 0-1 K/uL Nucleated Red Blood Cells 0.2 H 0.0-0.19 % Sodium Level 144 136-145 mmol/L Potassium Level 4.2 3.5-5.1 mmol/L Chloride Level 113 H 101-111 mmol/L Carbon Dioxide Level 22 21-32 mmol/L Blood Urea Nitrogen 76 *H 7-18 mg/dL Creatinine 3.5 H 0.5-1.3 mg/dL Glomerular Filtration Rate Calc 17 >90 mL/min Random Glucose 235 H 70-105 mg/dL Total Calcium 7.5 L 8.5-10.1 mg/dL Stool Occult Blood POSITIVE H NEGATIVE Test 05/11/24 09:49 05/11/24 04:35 05/10/24 22:53 05/10/24 18:00 Range/Units Total Bilirubin 0.5 0.2-1.0 mg/dL Aspartate Amino Transf (AST/SGOT) 200 H 10-37 U/L Alanine Aminotransferase (ALT/SGPT) 280 H 12-78 U/L Alkaline Phosphatase 101 50-136 U/L Troponin I High Sensitivity 6323 *H 4-75 ng/L B-Type Natriuretic Peptide 2150 H 0-100 pg/mL Total Protein 5.2 L 6.0-8.3 g/dL Albumin 1.9 L 3.5-5.0 g/dL Red Blood Cell Morphology See comments Prothrombin Time 15.1 H 9.6-11.6 SEC Prothromb Time International Ratio 1.39 H 0.85-1.15 Magnesium Level 1.80 1.80-2.40 mg/dL Activated Partial Thromboplast Time 34.7 26.3-35.5 SEC Fibrinogen 266 180-350 mg/dL Blood Gas Specimen Type Arterial Arterial Blood pH 7.343 L 7.350-7.450 Arterial Blood Partial Pressure CO2 34 L 35-48 mmHg Arterial Blood Partial Pressure O2 58.9 L 83.0-108.0 mmHg Arterial Blood HCO3 18.1 L 21.0-28.0 mmol/L Arterial Blood Oxygen Saturation 87.1 L 94.0-98.0 % Arterial Blood Base Excess -7.0 L -2.0-3.0 mmol/L Hemoglobin (Blood Gas) 7.5 L 13.5-17.5 g/dL Sodium (Blood Gas) 139 136-145 MMOL/L Bedside Potassium (Blood Gas) 4.1 3.4-4.5 MMOL/L Bedside Chloride (Blood Gas) 109 H 98-107 MMOL/L Bedside Glucose (Blood Gas) 47 *L 65-95 MG/DL Bedside Ionized Calcium (Blood Gas) 1.12 L 1.15-1.33 MMOL/L Bedside Lactic Acid (Blood Gas) 2.17 H 0.36-0.75 MMOL/L Blood Gas Temperature 37.0 35.5-37.0 CELSIUS Blood Gas Vent Mode NC ROOM AIR FiO2 32.0 % Blood Gas Specimen Comment SCAR MARIN ASSESSMENT: Gastrointestinal bleeding. Pneumonia. Hypotension. [id number] myocardial infarction. Severe Anemia, requiring blood transfusion. Acute on chronic renal failure. Diabetes mellitus. Muscle spasms. PLAN: Continue Meropenem. Continue Protonix. We will monitor hemoglobin and hematocrit. Continue vasopressor support. Continue oxygen support. GI has evaluated patient and is pending an EGD/colonoscopy if cleared by Cardiology. Glucometer checks a.c./hs and cover with insulin per sliding scale protocol. Continue baclofen 5 mg p.o. b.i.d and give a one time dose of acetaminophen 1000mg IV. This case was reviewed and discussed with my supervising physician and the above assessment and plan was formulated and agreed upon. ATTESTATION BY PHYSICIAN I have seen and examined the patient. I reviewed the documentation, medical decision making, and treatment plan as noted by the mid-level provider above. I agree with the findings and plan of care. AURORA TERAN MD, MIRTA L [facility] May 12, 2024 17:40
--- NOTE | 2024-05-12 22:00 | NUR ---
DURING MEDICATION ADMINISTRATION PATIENT WAS SITTING UPRIGHT IN BED, AWAKE AND ALERT TO SELF, NURSE NOTED PATIENT WITH DIFFICULTY SWALLOWING MEDICATIONS WHEN THIN LIQUID WATER WAS GIVEN TO PATIENT, SUCTIONED PATIENT AND NO LIQUID WAS SUCTIONED FROM MOUTH, MINIMAL COUGHING NOTED, NO MEDICATION RESIDUAL NOTED IN MOUTH.
[2024-05-13] VITALS (85 sets, daily range): BP systolic 96–136; BP diastolic 24–59; PULSE 72–96; RESP 10–30; TEMP 97–99.2; O2SAT 94–98
[2024-05-13] MEDS: DEXTROSE 50%-WATER 50 ML DISP.SYRIN IV ONE (04:02)
[2024-05-13 04:04] LABS: BASOPHILS # (AUTO) 0.04 K/uL (0.00-0.20); BASOPHILS % (AUTO) 0.3 % (0.0-5.0); EOSINOPHILS # (AUTO) 0.16 K/uL (0.00-0.70); EOSINOPHILS % (AUTO) 1.4 % (0.0-8.0); HEMATOCRIT 24.2 % (42-54); IMMATURE GRANULOCYTE ABSOLUTE 0.07 K/uL (0-1); LYMPHOCYTES # (AUTO) 1.4 K/uL (1.0-4.8); LYMPHOCYTES % (AUTO) 12.1 % (21.0-51.0); MEAN CORPUSCULAR HEMOGLOBIN 28.5 pg (27.0-33.0); MEAN CORPUSCULAR HGB CONC 30.6 g/dL (32.0-36.0); MEAN CORPUSCULAR VOLUME 93.1 fL (79-99); MONOCYTES # (AUTO) 0.9 K/uL (0.1-1.0); MONOCYTES % (AUTO) 7.5 % (3.0-13.0); NEUTROPHILS % (AUTO) 78.1 % (40.0-77.0); NUCLEATED RED BLOOD CELLS 0.2 % (0.0-0.19); PLATELET COUNT (AUTO) 216 K/uL (130-400); RED CELL DISTRIBUTION WIDTH 19.4 % (11.0-15.5); WHITE BLOOD COUNT (AUTO) 11.6 K/uL (4.8-10.8)
[2024-05-13 04:30] LABS: CREATININE 3.5 mg/dL (0.5-1.3); POTASSIUM 3.9 mmol/L (3.5-5.1); THYROID STIMULATING HORMONE 0.39 uIU/mL (0.36-3.74)
[2024-05-13] MEDS: NOREPINEPHRINE 16MG/NS 250ML PREMIX IV SCH (08:30)
--- NOTE | 2024-05-13 09:35 | NUR ---
PATIENT WITH DIFFICULTY SWALLOWING MEDICATIONS WHEN THIN LIQUID WATER WAS GIVEN TO PATIENT, PER COOK BARBECUE NURSEHASMUKH DIMENSIONAL INSPECTOR MADE AWARE , PLACED ORDER FOR SPEECH THERAPIST TO EVALUATE. NO PO MEDS GIVEN .
--- NOTE | 2024-05-13 10:00 | NUR ---
BEDSIDE SWALLOW EVAL COMPLETED. s/s of aspiration observed WITH THIN AND NECTAR THICK LIQUIDS SECONDARY TO SIGNIFICANT SWALLOW DELAY. Recommend PUREE solids, HONEY THICK liquids, and pills CRUSHED WITH PUREE as tolerated. Compensatory strategies: 1. sit upright during and 30 minutes after meals 2. slow oral intake 3. small bites/sips 4. ASSIST WITH FEEDING Pt downgraded to PUREE solids due to overall debility AND ORAL MOTOR WEAKNESS WITH LABORED MASTICATION, AND POOR DENTITION. DIAGNOSTIC TECH reviewed results and recommendations with patient, SONS and nurse. RECOMMEND MBSS TO FULLY ASSESS SWALLOW FUNCTION AND DETERMINE LEAST RESTRICTIVE DIET FOR Pt. [facility] PENDING MBSS RESULTS. Addendum: 05/13/24 at 1155 by WANDA PEDRO Amended: Links added.
--- NOTE | 2024-05-13 11:43 | PN ---
[facility] CARDIOLOGY PROGRESS NOTE Cardiology progress note dictated for Isabell Adamson MD Date Patient Seen: May 13, 2024 Interval History: The patient is maintained on norepinephrine, Lasix, and Sandostatin drip. Telemetry demonstrating atrial fibrillation with heart rate 80s. The patient is unable to answer questions appropriately. Fluid balance is positive 999 mL. Weight has increased 2.2 kg. GI evaluated the patient on 05/10/2024 and had recommended an an EGD and colonoscopy. It appears the patient has been hemodynamically unstable with the need of vasopressor support and has not been able to undergo such procedures. Family is currently discussing transitioning the patient to palliative care/hospice. Physical Examination: GENERAL: No acute distress. HEAD: Normal with no signs of head trauma. EYES: PERRLA, EOMI, conjunctiva and sclera normal. NECK: Supple without JVD. There is no tenderness, lymphadenopathy, or masses. No thyromegaly. Normal carotid upstrokes without bruits. LUNGS: Clear breath sounds bilaterally. No wheezes, or rhonchi. HEART: Normal rate and rhythm. Normal S1 and S2. 3/6 MARIAELENA heard at the Lt 5[facility]CS at the [facility]. VASC: Peripheral pulses +2 bilaterally. EXT: No clubbing, cyanosis or edema. NEURO: Awake and alert. Laboratory: Hematology Labs: Test 05/13/24 03:52 Range/Units White Blood Count 11.6 H 4.8-10.8 K/uL Red Blood Count 2.60 L 4.50-6.20 MIL/uL Hemoglobin 7.4 L 14.0-18.0 g/dL Hematocrit 24.2 L 42-54 % Mean Corpuscular Volume 93.1 79-99 fL Mean Corpuscular Hemoglobin 28.5 27.0-33.0 pg Mean Corpuscular Hemoglobin Concent 30.6 L 32.0-36.0 g/dL Red Cell Distribution Width 19.4 H 11.0-15.5 % Platelet Count 216 130-400 K/uL Mean Platelet Volume 10.6 H 7.5-10.5 fL Immature Granulocyte % (Auto) 0.6 0-1 % Neutrophils (%) (Auto) 78.1 H 40.0-77.0 % Lymphocytes (%) (Auto) 12.1 L 21.0-51.0 % Monocytes (%) (Auto) 7.5 3.0-13.0 % Eosinophils (%) (Auto) 1.4 0.0-8.0 % Basophils (%) (Auto) 0.3 0.0-5.0 % Neutrophils # (Auto) 9.0 H 1.8-7.7 K/uL Lymphocytes # (Auto) 1.4 1.0-4.8 K/uL Monocytes # (Auto) 0.9 0.1-1.0 K/uL Eosinophils # (Auto) 0.16 0.00-0.70 K/uL Basophils # (Auto) 0.04 0.00-0.20 K/uL Absolute Immature Granulocyte (auto 0.07 0-1 K/uL Nucleated Red Blood Cells 0.2 H 0.0-0.19 % Chemistry Labs: Test 05/13/24 03:57 05/13/24 03:52 Range/Units Whole Blood Glucose 77 70-110 MG/DL Sodium Level 147 H 136-145 mmol/L Potassium Level 3.9 3.5-5.1 mmol/L Chloride Level 114 H 101-111 mmol/L Carbon Dioxide Level 23 21-32 mmol/L Blood Urea Nitrogen 75 *H 7-18 mg/dL Creatinine 3.5 H 0.5-1.3 mg/dL Glomerular Filtration Rate Calc 17 >90 mL/min Random Glucose 81 # 70-105 mg/dL Total Calcium 7.9 L 8.5-10.1 mg/dL Ammonia 23 11-32 umol/L Thyroid Stimulating Hormone (TSH) 0.39 0.36-3.74 uIU/mL Diagnostics / Radiology: Impression and Plan: -Multifactorial shock -Sepsis -Leukocytosis -Acute blood loss anemia s/p PRBC transfusion -Acute GI bleed with hematemesis -ACS-NSTEMI -Acute HFrEF (LVEF: 30-35% by echo done 05/10/2024) -Acute on chronic renal insufficiency -Elevated LFTs -Electrolyte derangement -Paroxysmal atrial fibrillation with RVR -Multifactorial encephalopathy -CAD s/p 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 ACS-NSTEMI -HS troponin I peak: [id number] -Unfortunately the patient is not a candidate for conservative medical therapy, much less further ischemic cardiac evaluation due to current critical state. -He is not a candidate for conservative medical therapy with antiplatelet therapy due to his acute GI bleed, he is not a candidate for BB therapy due to the need for IV vasopressor support, and he is not a candidate for statin therapy due to his elevated LFTs. -He is not a candidate for further ischemic evaluation due to his acute GI bleed as he would require antiplatelet therapy and anticoagulation. -In addition, his advanced renal dysfunction, which places him at an increased risk of developing contrast induced nephropathy resulting in worsening renal dysfunction/renal failure and likelihood of requiring hemodialysis. 2. Acute HFrEF (LVEF: 30-35% by echo done 05/10/2024) -24H urine output: 625 mL -24H fluid balance: +999 mL -The patient will continue on the continuous IV furosemide infusion at 2.5mg/hr in order to target a 1-2L fluid loss per day. -The patient is not a candidate for GDMT with BB therapy, ACEI/ARB/ARNI therapy, or aldosterone antagonist therapy due to the need for IV vasopressor support. -Please record strict I/O's, daily weights, and restrict fluids to less than 2.0L/day 3. Paroxysmal atrial fibrillation with RVR -Substrate: Dilated atria -Inciting factor: Multiple, including shock, leukocytosis, and anemia -12H telemetry: Atrial fibrillation, HR: 70-80's bpm -The patient is not a candidate for rate control therapy due to the need for IV vasopressor support. -CHADS2 VASc score: 8 points. HAS BLED score: 6 points. The patient is not a candidate for anticoagulation at this time due to the his acute blood loss anemia. -Please keep the patient on continuous telemetry monitoring and maintain electrolytes within normal parameters. The patient has been transitioned to DNR/DNI status and his family is currently discussing the possibility of transitioning to Palliative Care/Comfort Measures. He remains critically ill with an increased risk of in-hospital mortality. COLLIN LOUIE ZUCKER [facility] May 13, 2024 11:43
--- NOTE | 2024-05-13 12:23 | PN ---
[facility] PROGRESS NOTE Date Patient Seen: May 13, 2024 Time of Visit: 12:22 Supervising Physician: Dr. Valdes Primary Care Physician: Dr. Sylvia Lane Outpatient Specialists: Graduate Assistant: Angel Diaz MD Inpatient Consults: Cardiology PROBLEM LIST: Acute NSTEMI POA Cardiogenic shock POA. Acute GI bleed POA, probably secondary to oral anticoagulation therapy. . Acute blood loss anemia Acute sepsis from unknown source POA. Acute constipation POA. Acute on chronic combined systolic and diastolic congestive heart failure Paroxysmal atrial fibrillation on chronic anticoagulation with Eliquis, to be on hold Hyperkalemia. HTN HLD DM2 CKD stage IIIB CAD s/p CABG in the remote past Recurrent CVAs JACK hx R CEA Pulmonary hypertension Dementia INTERVAL HISTORY: 05/09/24: HPI: This is a 83-year-old male patient who is not a good historian due to his current condition, age in mental status. He resides at a local halfway facility [place]. The patient has past medical history that is significant for HTN, HLD, DM2, CKD stage IIIB, CAD s/p CABG ecurrent CVA with new onset right side weakness, JACK hx R CEA, Paroxysmal atrial fibrillation on chronic anticoagulation with Eliquis, chronic combined systolic/diastolic heart failure, NSTEMI, and dementia. The patient was sent from the halfway facility via EMS due to report of coffee-ground emesis and abdominal discomfort. Upon entry to the emergency department, vital signs was significant for hypotension systolic of 80/42 that had started since the morning. Of note, the patient is on anticoagulation therapy with apixaban and antiplatelet therapy with Plavix which may have been the culprit. ED workup showed laboratory data indicating a WBC of 11.6, H&H 7.24/22.7 and a platelet count of 238. Chemistry panel was significant for a elevated potassium of 5.4, BUN 59, creatinine of 2.9 and a GFR of 21. Keaton troponin of 1870 and a BNP of 1140. Imaging of the chest showed bilateral pulmonary infiltrates and abdomen showed bilateral pleural effusions with compressive atelectasis. Gastric distention with small bowel dilatation and fluid filled may be related to enteritis. There was large amount of fecal material seen in the colon and there was also presence of diverticulosis. Because of the above findings, the patient was admitted for further inpatient evaluation and management of his condition. BIS volleyball commentator was consulted due to the GI bleed with subsequent hypotension requiring vasopressor therapy. 05/10/2024: At the time of my evaluation, the patient was lying in bed. Per the staff nurse, no acute events overnight. Vital signs obtained were stable. Laboratory data of significance showed a WBC count of 18.6, H and H 7.4/22.4 and a platelet count of 242. Chemistry panel showed a sodium of 141, potassium 5.2, chloride 107, CO2 of 20, BUN is 66, creatinine of 3.4, random glucose of 322 total calcium of 8.4. And increased troponin to 9057. The patient continues on octreotide and pantoprazole infusion. He is also on meropenem for antibiotic coverage. He continues on vasopressin and norepinephrine drip. No other complaint. 05/11/2024: At the time of my evaluation, the patient was lying in bed. He remains on Lasix., also on vasopressin and norepinephrine. He was given Precedex for anxiolytic management currently, the patient is on IV antibiotics guided by the Infectious Disease specialist and continue on Protonix and octreotide drip. He still remains critically ill. Family members were present at the bedside. No new complaints. 05/12/2024: At the time of my evaluation, the staff nurse reports no acute events overnight. Vital signs was generally stable. Laboratory data shows low trending H and H 7.3/22.8 count , platelet count of 206. Chemistry panel showed elevated renal parameters with a BUN of 7.6, creatinine of 3.5 and a GFR of 17. No new complaint. 05/13/2024: At the time of my evaluation, the patient was lying in bed. He is awake but generally confused. He is able to follow simple commands. Respiratory marrero, the patient is breathing on room air. Staff nurse reports that the patient was noted coughing with his feedings and with meds. 24 hour I & O: Urine output of a 625 mL with a positive balance of 992.2 ML Pressors: Levophed, vasopressin, Precedex Drips: Octreotide, pantoprazole injection, Lasix Antibiotics/antiviral: Meropenem Microbiology data: No growth Imaging data: No new imaging for review today Pathology data: None REVIEW OF SYSTEMS: 12 point ROS reviewed with patient. Pertinent positives mentioned above. Otherwise negative. PHYSICAL EXAM: GENERAL: alert, weak, awake oriented x 3 HEENT: EOMI, Sclera non icteric, moist mucosa NECK: Supple, no JVD, trachea midline LUNGS: Diminished lung sounds. No wheezes HEART: Regular rate and rhythm. Normal S1 and S2, without murmurs ABD: Abdomen soft, nontender. Bowel sounds present EXT: No clubbing cyanosis or edema NEURO: Alert and oriented to person, able to follow simple commands Vital Signs (last 8hr) Date Time Temp Pulse Resp B/P (MAP) Pulse Ox O2 Delivery O2 Flow Rate FiO2 05/13/24 12:15 98 Nasal Cannula* 4 36 05/13/24 09:00 81 12 123/30 (61) 100 05/13/24 08:46 87 12 117/44 (68) 100 128/30 (62) 05/13/24 08:45 89 22 130/36 (67) 99 05/13/24 08:30 85 22 130/33 (65) 97 05/13/24 08:30 129/40 05/13/24 08:15 86 19 130/35 (66) 97 05/13/24 08:05 98 Nasal Cannula* 4 36 05/13/24 08:00 97.0 85 20 128/33 (64) 97 05/13/24 07:46 83 16 98/44 (62) 99 120/33 (62) 05/13/24 07:45 83 16 127/33 (64) 99 05/13/24 07:30 86 22 129/33 (65) 97 05/13/24 07:15 85 13 126/35 (65) 98 05/13/24 07:00 78 15 122/34 (63) 98 05/13/24 06:45 86 15 124/34 (64) 97 05/13/24 06:30 82 14 122/34 (63) 98 05/13/24 06:15 85 23 129/35 (66) 93 05/13/24 06:00 84 30 105/24 (51) 86 05/13/24 05:45 81 17 126/36 (66) 96 05/13/24 05:30 80 18 124/29 (60) 99 05/13/24 05:15 84 15 132/41 (71) 99 05/13/24 05:00 83 15 135/40 (71) 99 05/13/24 04:45 83 15 132/40 (70) 96 05/13/24 04:30 82 16 136/40 (72) 99 LABS: Hematology Labs: Test 05/13/24 03:52 Range/Units White Blood Count 11.6 H 4.8-10.8 K/uL Red Blood Count 2.60 L 4.50-6.20 MIL/uL Hemoglobin 7.4 L 14.0-18.0 g/dL Hematocrit 24.2 L 42-54 % Mean Corpuscular Volume 93.1 79-99 fL Mean Corpuscular Hemoglobin 28.5 27.0-33.0 pg Mean Corpuscular Hemoglobin Concent 30.6 L 32.0-36.0 g/dL Red Cell Distribution Width 19.4 H 11.0-15.5 % Platelet Count 216 130-400 K/uL Mean Platelet Volume 10.6 H 7.5-10.5 fL Immature Granulocyte % (Auto) 0.6 0-1 % Neutrophils (%) (Auto) 78.1 H 40.0-77.0 % Lymphocytes (%) (Auto) 12.1 L 21.0-51.0 % Monocytes (%) (Auto) 7.5 3.0-13.0 % Eosinophils (%) (Auto) 1.4 0.0-8.0 % Basophils (%) (Auto) 0.3 0.0-5.0 % Neutrophils # (Auto) 9.0 H 1.8-7.7 K/uL Lymphocytes # (Auto) 1.4 1.0-4.8 K/uL Monocytes # (Auto) 0.9 0.1-1.0 K/uL Eosinophils # (Auto) 0.16 0.00-0.70 K/uL Basophils # (Auto) 0.04 0.00-0.20 K/uL Absolute Immature Granulocyte (auto 0.07 0-1 K/uL Nucleated Red Blood Cells 0.2 H 0.0-0.19 % Chemistry Labs: Test 05/13/24 11:30 05/13/24 03:52 Range/Units Whole Blood Glucose 158 #H 70-110 MG/DL Sodium Level 147 H 136-145 mmol/L Potassium Level 3.9 3.5-5.1 mmol/L Chloride Level 114 H 101-111 mmol/L Carbon Dioxide Level 23 21-32 mmol/L Blood Urea Nitrogen 75 *H 7-18 mg/dL Creatinine 3.5 H 0.5-1.3 mg/dL Glomerular Filtration Rate Calc 17 >90 mL/min Random Glucose 81 # 70-105 mg/dL Total Calcium 7.9 L 8.5-10.1 mg/dL Ammonia 23 11-32 umol/L Thyroid Stimulating Hormone (TSH) 0.39 0.36-3.74 uIU/mL DIAGNOSTICS / RADIOLOGY RESULTS: [ ] PLAN 05/09/24: The patient was admitted and BAL was consulted for ICU upgrade. The patient was started on Levophed. In the emergency department, the patient did receive fluid resuscitation with IV NS 1 L bolus. The patient did receive a dose of IV Rocephin. I am going to continue with IV cefepime, we will request blood cultures x2. We will request a MRSA nasal swab. We will order additional vasopressor therapy if hypotension persists. We will monitor the H&H and we will transfuse as necessary. Orders are in place for occult blood in stool. The patient will remain nothing by mouth. We will monitor the trend and maintain map above 65. We will follow the troponins x2 more sets. Cardiology consult is in place as well as Nephrology consultation. Patient was started on antibiotic therapy. Going to repeat surveillance labs in the morning. We will continue provide general supportive care, GI and DVT prophylaxis. Further ord ers per attending MD and hospital course. 05/10/2024: For now, we are going to continue current management for the patient. We will continue antibiotic coverage as ordered. We will continue to monitor the H&H and we will transfuse as necessary. The patient continue on pressor therapy and may require central line placement. Gastroenterology was consulted on the case and awaiting patient's stability to take the patient for endoscopic evaluation. In the meantime, the patient will continue on octreotide and Protonix. We will follow the recommendation of the circuit breaker supervisor. Patient currently not a candidate for blood thinners/anti-platelet therapy. Because of the low blood pressure trend we will avoid metoprolol and HIMANSHU inhibitors. We will monitor the patient's progress and response to management. We will continue to provide general supportive care, GI and DVT prophylaxis. Further orders per attending MD and hospital course. 05/11/2024: For now, we are going to continue the patient management. He will continue on antibiotic therapy as ordered, Lasix drip and pressor therapy with addition of anxiolytic Precedex. for hypotension management. I am going to repeat surveillance labs management to follow the H&H trend as well as the renal parameters. We will follow the recommendation treating specialist. The patient needs to undergo EGD as colonoscopy evaluation. Unfortunately he is not stable enough to undergo this procedure. We will await for clearance. Patient complains of involuntary lower extremity muscular spasms. He was started on baclofen 5 mg p.o. b.i.d. we will follow management. Appreciate the input of the treating specialist. We will continue to provide general supportive care, GI and DVT prophylaxis. Further orders per attending MD and hospital course. 05/12/2024: For now, we are going to continue current management for the patient. Per the pension fund manager, the patient is not a candidate for any cardiac interventions due to his renal condition. Also, the patient is not a candidate for any gastroenterology intervention due to his NSTEMI. The patient extreme high risk of mortality and very poor prognosis. Recommended consider palliative/hospice care. We will continue current management for the patient and follow the recommendation of the treating specialist. We will continue to provide general supportive care, GI and DVT prophylaxis. Further orders per attending MD and hospital course. 05/13/2024: For now, going to continue current management for the patient. We will continue to monitor the patient's respiratory status and pulmonary toileting. We will continue to follow the hemodynamics and treat accordingly. I am going to consult the speech therapist to evaluate the patient's swallowing and recommend feedings. Renal parameter shows slight worsening and electrolytes with no major derangements. The patient was started on IV Merrem and is guided by the Infectious Disease specialist. We will continue to monitor the coags. We will address rehabilitative needs once his acute condition is stabilized. The patient continues with extreme high risk of mortality and very poor prognosis. Family members are still contemplating palliative/hospice care. We will monitor the patient's progress and response to management. We will continu e to provide general supportive care, GI and DVT prophylaxis. Further orders per attending MD and hospital course. NEURO: Minimize central acting medications as possible. Fall Precautions. Well lighted room through the day and minimize interruptions through the night to prevent acute delirium. PULMONARY: Supplemental 02 as needed Titrate Fio2 to keep Spo2 > or = 90% DuoNebs and CPT as needed IS hourly while awake for pulmonary hygiene Out of bed to chair as tolerated CARDIOVASCULAR: Follow hemodynamics. Titrate vasopressor to keep MAP >65 or systolic blood pressure >95mmHg DIPS: As mentioned above LINES: Peripheral IVs GI & NUTRITION: Continue nutritional support Aspirations precautions Prokinetic agents and laxatives as needed KIDNEYS & ELECTROLYTES: Strict monitoring of intake and output Daily weights Avoid nephrotoxic agents Monitor electrolytes and replace as needed Goal urine output of 30mL/hr or 0.5mL/kg/hr Urine output: [ ] Fluid Balance: [ ] ENDOCRINE: Maintain blood glucose between 100-180 at all times. Insulin sliding scale for blood glucose management INFECTIOUS DISEASE: Trend temperature. Zapata-culture if febrile. Micro: Blood cultures to be sent and pending UA. Antibiotics: Cefepime 1 g daily HEMATOLOGY & COAGULATION: Monitor H&H. Keep Hgb > 7 Transfuse 1 unit of PRBC for Hgb < 7 Transfuse 1 pack of platelets of platelets < 20, 000 Watch for any signs and symptoms of bleeding SKIN: Pressure ulcer prevention per facility protocol Rehab: PT/OT once acute phase has been stabilized. Prophylaxis: GI: Protonix DVT: Not a candidate for systemic anticoagulation Code Status: Full Resuscitation Disposition: ICU Case was discussed and seen with my supervising physician. The above plan was formulated and agreed upon. Total critical care time: 35 min CARLOS MANUEL NOE NP May 13, 2024 12:22
[2024-05-14] VITALS (25 sets, daily range): BP systolic 88–135; BP diastolic 26–54; PULSE 57–83; RESP 12–27; TEMP 98.1–99; O2SAT 96–100
[2024-05-14 04:48] LABS: HEMATOCRIT 23.4 % (42-54); MEAN CORPUSCULAR HEMOGLOBIN 28.6 pg (27.0-33.0); MEAN CORPUSCULAR HGB CONC 31.2 g/dL (32.0-36.0); MEAN CORPUSCULAR VOLUME 91.8 fL (79-99); NUCLEATED RED BLOOD CELLS 0.3 % (0.0-0.19); RED BLOOD CELL COUNT(AUTO) 2.55 MIL/uL (4.50-6.20); RED CELL DISTRIBUTION WIDTH 19.3 % (11.0-15.5); WHITE BLOOD COUNT (AUTO) 8.8 K/uL (4.8-10.8)
[2024-05-14 05:13] LABS: ALBUMIN 1.7 g/dL (3.5-5.0); BILIRUBIN,TOTAL 0.4 mg/dL (0.2-1.0); CREATININE 3.7 mg/dL (0.5-1.3); MAGNESIUM 1.8 mg/dL (1.80-2.40); POTASSIUM 3.5 mmol/L (3.5-5.1); TOTAL PROTEIN, SERUM 5.2 g/dL (6.0-8.3)
[2024-05-14 09:47] LABS: CREATININE 3.6 mg/dL (0.5-1.3); POTASSIUM 3.5 mmol/L (3.5-5.1)
--- NOTE | 2024-05-14 11:42 | PN ---
[facility] CARDIOLOGY PROGRESS NOTE Cardiology progress note dictated for Isabell Adamson MD Date Patient Seen: May 14, 2024 Interval History: The patient is maintained on Lasix and Sandostatin drip. Norepinephrine gtt has been weaned off. Telemetry demonstrated atrial fibrillation with heart rate in the 70s, episode of hr in the 40's. The patient is unable to answer questions appropriately. Negative fluid balance of 846mL. Weight has increased 2.2 kg. GI evaluated the patient on 05/10/2024 and had recommended an an EGD and colonoscopy. It appears the patient has been hemodynamically unstable with the need of vasopressor support and has not been able to undergo such procedures. Family is currently discussing transitioning the patient to palliative care/hospice. Physical Examination: GENERAL: No acute distress. HEAD: Normal with no signs of head trauma. EYES: PERRLA, EOMI, conjunctiva and sclera normal. NECK: Supple without JVD. There is no tenderness, lymphadenopathy, or masses. No thyromegaly. Normal carotid upstrokes without bruits. LUNGS: Clear breath sounds bilaterally heard anteriorly with diminished bases. No wheezes, or rhonchi. HEART: Normal rate and rhythm. Normal S1 and S2. 3/6 MARIAELENA heard at the Lt 5th ICS at the [facility]. VASC: Peripheral pulses +2 bilaterally. EXT: No clubbing, cyanosis or edema. GENT: Gay catheter draining clear yellow urine NEURO: Awake and alert. Laboratory: Hematology Labs: Test 05/14/24 04:27 05/13/24 03:52 Range/Units White Blood Count 8.8 4.8-10.8 K/uL Red Blood Count 2.55 L 4.50-6.20 MIL/uL Hemoglobin 7.3 L 14.0-18.0 g/dL Hematocrit 23.4 L 42-54 % Mean Corpuscular Volume 91.8 79-99 fL Mean Corpuscular Hemoglobin 28.6 27.0-33.0 pg Mean Corpuscular Hemoglobin Concent 31.2 L 32.0-36.0 g/dL Red Cell Distribution Width 19.3 H 11.0-15.5 % Platelet Count 201 130-400 K/uL Mean Platelet Volume 10.7 H 7.5-10.5 fL Nucleated Red Blood Cells 0.3 H 0.0-0.19 % Immature Granulocyte % (Auto) 0.6 0-1 % Neutrophils (%) (Auto) 78.1 H 40.0-77.0 % Lymphocytes (%) (Auto) 12.1 L 21.0-51.0 % Monocytes (%) (Auto) 7.5 3.0-13.0 % Eosinophils (%) (Auto) 1.4 0.0-8.0 % Basophils (%) (Auto) 0.3 0.0-5.0 % Neutrophils # (Auto) 9.0 H 1.8-7.7 K/uL Lymphocytes # (Auto) 1.4 1.0-4.8 K/uL Monocytes # (Auto) 0.9 0.1-1.0 K/uL Eosinophils # (Auto) 0.16 0.00-0.70 K/uL Basophils # (Auto) 0.04 0.00-0.20 K/uL Absolute Immature Granulocyte (auto 0.07 0-1 K/uL Chemistry Labs: Test 05/14/24 09:20 05/14/24 04:27 05/14/24 00:29 05/13/24 03:52 Range/Units Sodium Level 149 H 136-145 mmol/L Potassium Level 3.5 3.5-5.1 mmol/L Chloride Level 115 H 101-111 mmol/L Carbon Dioxide Level 22 21-32 mmol/L Blood Urea Nitrogen 71 H 7-18 mg/dL Creatinine 3.6 H 0.5-1.3 mg/dL Glomerular Filtration Rate Calc 16 >90 mL/min Random Glucose 131 H 70-105 mg/dL Total Calcium 7.7 L 8.5-10.1 mg/dL Magnesium Level 1.80 1.80-2.40 mg/dL Total Bilirubin 0.4 0.2-1.0 mg/dL Aspartate Amino Transf (AST/SGOT) 40 H 10-37 U/L Alanine Aminotransferase (ALT/SGPT) 154 H 12-78 U/L Alkaline Phosphatase 99 50-136 U/L Total Protein 5.2 L 6.0-8.3 g/dL Albumin 1.7 L 3.5-5.0 g/dL Whole Blood Glucose 194 H 70-110 MG/DL Ammonia 23 11-32 umol/L Thyroid Stimulating Hormone (TSH) 0.39 0.36-3.74 uIU/mL Diagnostics / Radiology: Impression and Plan: -Multifactorial shock -Sepsis -Leukocytosis -Acute blood loss anemia s/p PRBC transfusion -Acute GI bleed with hematemesis -ACS-NSTEMI -Acute HFrEF (LVEF: 30-35% by echo done 05/10/2024) -Acute on chronic renal insufficiency -Elevated LFTs -Electrolyte derangement -Paroxysmal atrial fibrillation with RVR -Multifactorial encephalopathy -CAD s/p 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 ACS-NSTEMI -HS troponin I peak: 95727 -Unfortunately the patient is not a candidate for conservative medical therapy, much less further ischemic cardiac evaluation due to current critical state. -He is not a candidate for conservative medical therapy with antiplatelet therapy due to his acute GI bleed, he is not a candidate for BB therapy due to the need for IV vasopressor support, and he is not a candidate for statin therapy due to his elevated LFTs. -He is not a candidate for further ischemic evaluation due to his acute GI bleed as he would require antiplatelet therapy and anticoagulation. -In addition, his advanced renal dysfunction, which places him at an increased risk of developing contrast induced nephropathy resulting in worsening renal dy sfunction/renal failure and likelihood of requiring hemodialysis. 2. Acute HFrEF (LVEF: 30-35% by echo done 05/10/2024) -24H urine output: 1850 mL -24H fluid balance: -846 mL -The patient will continue on the continuous IV furosemide infusion at 2.5mg/hr in order to target a 1-2L fluid loss per day. -The patient is not a candidate for GDMT with BB therapy, ACEI/ARB/ARNI therapy, or aldosterone antagonist therapy due to the need for IV vasopressor support. -Please record strict I/O's, daily weights, and restrict fluids to less than 2.0L/day -BNP, BMP, CBC, and Mg in AM 3. Paroxysmal atrial fibrillation with RVR -Substrate: Dilated atria -Inciting factor: Multiple, including shock, leukocytosis, and anemia -12H telemetry: Atrial fibrillation, HR: 70's bpm -The patient is not a candidate for rate control therapy due to the need for IV vasopressor support. -CHADS2 VASc score: 8 points. HAS BLED score: 6 points. The patient is not a candidate for anticoagulation at this time due to the his acute blood loss anemi a. -Please keep the patient on continuous telemetry monitoring and maintain electrolytes within normal parameters. The patient has been transitioned to DNR/DNI status and his family is currently discussing the possibility of transitioning to Palliative Care/Comfort Measures. He remains critically ill with an increased risk of in-hospital mortality. [facility] May 14, 2024 11:42
--- NOTE | 2024-05-14 15:57 | HMCIMG ---
CHEST 1VW HISTORY: CHF COMPARISON: 05/10/2024 FINDINGS: A frontal projection of the chest was obtained. There are bilateral pulmonary infiltrates suggestive of pulmonary vascular congestion with possible superimposed pneumonitis. The heart is borderline enlarged. Degenerative changes are seen. No evidence of aortic calcification is seen. IMPRESSION: 1. Bilateral pulmonary infiltrates are seen suggestive of pulmonary vascular congestion with possible superimposed pneumonitis.
--- NOTE | 2024-05-14 16:34 | NUR ---
AND DAUGHTER HAVE DECLARED THAT THEY WANT HOSPICE CARE INITIATED. DILAUDID DOSE GIVEN PT HAS SEVERE PAIN TO LEGS/BACK/ SCROTUM. Herve NOE NP ICU HAS BEEN MADE AWARE OF PT FAMILY REQUEST. HAVE INFORMED DR TERAN ALSO. Addendum: 05/14/24 at 1657 by HARMONY GARRETT RN RN FAMILY DOES NOT WANT TO ESCALATE CARE AND IS MORE CONCERNED WITH PATIENT COMFORT
--- NOTE | 2024-05-14 18:34 | PN ---
[facility] PROGRESS NOTE Date Patient Seen: May 14, 2024 Time of Visit: 18:26 Supervising Physician: Dr. Valdes Primary Care Physician: Dr. Sylvia Lane Outpatient Specialists: Grain Elevator Man: Angel Diaz MD Inpatient Consults: Cardiology PROBLEM LIST: Acute NSTEMI POA Cardiogenic shock POA. Acute GI bleed POA, probably secondary to oral anticoagulation therapy. . Acute blood loss anemia Acute sepsis from unknown source POA. Acute constipation POA. Acute on chronic combined systolic and diastolic congestive heart failure Paroxysmal atrial fibrillation on chronic anticoagulation with Eliquis, to be on hold Hyperkalemia. HTN HLD DM2 CKD stage IIIB CAD s/p CABG in the remote past Recurrent CVAs JACK hx R CEA Pulmonary hypertension Dementia INTERVAL HISTORY: 05/09/24: HPI: This is a 83-year-old male patient who is not a good historian due to his current condition, age in mental status. He resides at a local half-way facility [facility]. The patient has past medical history that is significant for HTN, HLD, DM2, CKD stage IIIB, CAD s/p CABG ecurrent CVA with new onset right side weakness, JACK hx R CEA, Paroxysmal atrial fibrillation on chronic anticoagulation with Eliquis, chronic combined systolic/diastolic heart failure, NSTEMI, and dementia. The patient was sent from the half-way facility via EMS due to report of coffee-ground emesis and abdominal discomfort. Upon entry to the emergency department, vital signs was significant for hypotension systolic of 80/42 that had started since the morning. Of note, the patient is on anticoagulation therapy with apixaban and antiplatelet therapy with Plavix which may have been the culprit. ED workup showed laboratory data indicating a WBC of 11.6, H&H 7.24/22.7 and a platelet count of 238. Chemistry panel was significant for a elevated potassium of 5.4, BUN 59, creatinine of 2.9 and a GFR of 21. Keaton troponin of 1870 and a BNP of 1140. Imaging of the chest showed bilateral pulmonary infiltrates and abdomen showed bilateral pleural effusions with compressive atelectasis. Gastric distention with small bowel dilatation and fluid filled may be related to enteritis. There was large amount of fecal material seen in the colon and there was also presence of diverticulosis. Because of the above findings, the patient was admitted for further inpatient evaluation and management of his condition. BIS postmaster relief was consulted due to the GI bleed with subsequent hypotension requiring vasopressor therapy. 05/10/2024: At the time of my evaluation, the patient was lying in bed. Per the staff nurse, no acute events overnight. Vital signs obtained were stable. Laboratory data of significance showed a WBC count of 18.6, H and H 7.4/22.4 and a platelet count of 242. Chemistry panel showed a sodium of 141, potassium 5.2, chloride 107, CO2 of 20, BUN is 66, creatinine of 3.4, random glucose of 322 total calcium of 8.4. And increased troponin to 9057. The patient continues on octreotide and pantoprazole infusion. He is also on meropenem for antibiotic coverage. He continues on vasopressin and norepinephrine drip. No other complaint. 05/11/2024: At the time of my evaluation, the patient was lying in bed. He remains on Lasix., also on vasopressin and norepinephrine. He was given Precedex for anxiolytic management currently, the patient is on IV antibiotics guided by the Infectious Disease specialist and continue on Protonix and octreotide drip. He still remains critically ill. Family members were present at the bedside. No new complaints. 05/12/2024: At the time of my evaluation, the staff nurse reports no acute events overnight. Vital signs was generally stable. Laboratory data shows low trending H and H 7.3/22.8 count , platelet count of 206. Chemistry panel showed elevated renal parameters with a BUN of 7.6, creatinine of 3.5 and a GFR of 17. No new complaint. 05/13/2024: At the time of my evaluation, the patient was lying in bed. He is awake but generally confused. He is able to follow simple commands. Respiratory marrero, the patient is breathing on room air. Staff nurse reports that the patient was noted coughing with his feedings and with meds. 24 hour I & O: Urine output of a 625 mL with a positive balance of 992.2 ML Pressors: Levophed, vasopressin, Precedex Drips: Octreotide, pantoprazole injection, Lasix Antibiotics/antiviral: Meropenem Microbiology data: No growth Imaging data: No new imaging for review today Pathology data: None 05/14/2024: At the time of my evaluation, the patient is lying bed. Family members are visiting with the patient. He offers no new complaint. Today, vital signs are stable. Laboratory data showed a WBC of 8.8. H and H 7.3/23.4 and a platelet count of 201. Chemistry panel showed a increasing sodium, today 149, potassium 3.5, chloride 115, CO2 of 22, BUN of 71, creatinine of 3.6 and a calcium of 7.7. BNP level today 3680. Chest x-ray today showing pulmonary edema. No other complaint. REVIEW OF SYSTEMS: 12 point ROS reviewed with patient. Pertinent positives mentioned above. Otherwise negative. PHYSICAL EXAM: GENERAL: alert, weak, awake oriented x 3 HEENT: EOMI, Sclera non icteric, moist mucosa NECK: Supple, no JVD, trachea midline LUNGS: Diminished lung sounds. No wheezes HEART: Regular rate and rhythm. Normal S1 and S2, without murmurs ABD: Abdomen soft, nontender. Bowel sounds present EXT: No clubbing cyanosis or edema NEURO: Alert and oriented to person, able to follow simple commands Vital Signs (last 8hr) Date Time Temp Pulse Resp B/P (MAP) Pulse Ox O2 Delivery O2 Flow Rate FiO2 05/14/24 18:00 72 14 106/50 (68) 95 135/40 (71) 05/14/24 17:00 75 13 101/50 (67) 95 130/38 (68) 05/14/24 16:00 96 Nasal Cannula* 4 36 05/14/24 16:00 78 20 120/54 (76) 96 131/42 (71) 05/14/24 15:00 69 12 114/45 (68) 100 123/31 (61) 05/14/24 14:00 76 12 128/33 (64) 99 05/14/24 13:00 73 17 117/46 (69) 99 124/33 (63) 05/14/24 12:00 100 Nasal Cannula* 4 36 05/14/24 12:00 98.8 69 13 108/41 (63) 100 120/30 (60) LABS: Hematology Labs: Test 05/14/24 04:27 05/13/24 03:52 Range/Units White Blood Count 8.8 4.8-10.8 K/uL Red Blood Count 2.55 L 4.50-6.20 MIL/uL Hemoglobin 7.3 L 14.0-18.0 g/dL Hematocrit 23.4 L 42-54 % Mean Corpuscular Volume 91.8 79-99 fL Mean Corpuscular Hemoglobin 28.6 27.0-33.0 pg Mean Corpuscular Hemoglobin Concent 31.2 L 32.0-36.0 g/dL Red Cell Distribution Width 19.3 H 11.0-15.5 % Platelet Count 201 130-400 K/uL Mean Platelet Volume 10.7 H 7.5-10.5 fL Nucleated Red Blood Cells 0.3 H 0.0-0.19 % Immature Granulocyte % (Auto) 0.6 0-1 % Neutrophils (%) (Auto) 78.1 H 40.0-77.0 % Lymphocytes (%) (Auto) 12.1 L 21.0-51.0 % Monocytes (%) (Auto) 7.5 3.0-13.0 % Eosinophils (%) (Auto) 1.4 0.0-8.0 % Basophils (%) (Auto) 0.3 0.0-5.0 % Neutrophils # (Auto) 9.0 H 1.8-7.7 K/uL Lymphocytes # (Auto) 1.4 1.0-4.8 K/uL Monocytes # (Auto) 0.9 0.1-1.0 K/uL Eosinophils # (Auto) 0.16 0.00-0.70 K/uL Basophils # (Auto) 0.04 0.00-0.20 K/uL Absolute Immature Granulocyte (auto 0.07 0-1 K/uL Chemistry Labs: Test 05/14/24 16:47 05/14/24 15:45 05/14/24 09:20 05/14/24 04:27 Range/Units Whole Blood Glucose 168 H 70-110 MG/DL B-Type Natriuretic Peptide 3680 H 0-100 pg/mL Sodium Level 149 H 136-145 mmol/L Potassium Level 3.5 3.5-5.1 mmol/L Chloride Level 115 H 101-111 mmol/L Carbon Dioxide Level 22 21-32 mmol/L Blood Urea Nitrogen 71 H 7-18 mg/dL Creatinine 3.6 H 0.5-1.3 mg/dL Glomerular Filtration Rate Calc 16 >90 mL/min Random Glucose 131 H 70-105 mg/dL Total Calcium 7.7 L 8.5-10.1 mg/dL Magnesium Level 1.80 1.80-2.40 mg/dL Total Bilirubin 0.4 0.2-1.0 mg/dL Aspartate Amino Transf (AST/SGOT) 40 H 10-37 U/L Alanine Aminotransferase (ALT/SGPT) 154 H 12-78 U/L Alkaline Phosphatase 99 50-136 U/L Total Protein 5.2 L 6.0-8.3 g/dL Albumin 1.7 L 3.5-5.0 g/dL Test 05/13/24 03:52 Range/Units Ammonia 23 11-32 umol/L Thyroid Stimulating Hormone (TSH) 0.39 0.36-3.74 uIU/mL DIAGNOSTICS / RADIOLOGY RESULTS: [ ] PLAN 05/09/24: The patient was admitted and BAL was consulted for ICU upgrade. The patient was started on Levophed. In the emergency department, the patient did receive fluid resuscitation with IV NS 1 L bolus. The patient did receive a dose of IV Rocephin. I am going to continue with IV cefepime, we will request blood cultures x2. We will request a MRSA nasal swab. We will order additional vasopressor therapy if hypotension persists. We will monitor the H&H and we will transfuse as necessary. Orders are in place for occult blood in stool. The patient will remain nothing by mouth. We will monitor the trend and maintain map above 65. We will follow the troponins x2 more sets. Cardiology consult is in place as well as Nephrology consultation. Patient was started on antibiotic therapy. Going to repeat surveillance labs in the morning. We will continue provide general supportive care, GI and DVT prophylaxis. Further orders per attending MD and hospital course. 05/10/2024: For now, we are going to continue current management for the patient. We will continue antibiotic coverage as ordered. We will continue to monitor the H&H and we will transfuse as necessary. The patient continue on pr essor therapy and may require central line placement. Gastroenterology was consulted on the case and awaiting patient's stability to take the patient for endoscopic evaluation. In the meantime, the patient will continue on octreotide and Protonix. We will follow the recommendation of the travel registered nurse pacu. Patient currently not a candidate for blood thinners/anti-platelet therapy. Because of the low blood pressure trend we will avoid metoprolol and HIMANSHU inhibitors. We will monitor the patient's progress and response to management. We will continue to provide general supportive care, GI and DVT prophylaxis. Further orders per attending MD and hospital course. 05/11/2024: For now, we are going to continue the patient management. He will continue on antibiotic therapy as ordered, Lasix drip and pressor therapy with addition of anxiolytic Precedex. for hypotension management. I am going to repeat surveillance labs management to follow the H&H trend as well as the renal parameters. We will follow the recommendation treating specialist. The patient needs to undergo EGD as colonoscopy evaluation. Unfortunately he is not stable enough to undergo this procedure. We will await for clearance. Patient complains of involuntary lower extremity muscular spasms. He was started on baclofen 5 mg p.o. b.i.d. we will follow management. Appreciate the input of the treating specialist. We will continue to provide general supportive care, GI and DVT prophylaxis. Further orders per attending MD and hospital course. 05/12/2024: For now, we are going to continue current management for the patient. Per the mail handler assistant, the patient is not a candidate for any cardiac interventions due to his renal condition. Also, the patient is not a candidate for any gastroenterology intervention due to his NSTEMI. The patient extreme high risk of mortality and very poor prognosis. Recommended consider palliative/hospice care. We will continue current management for the patient and follow the recommendation of the treating specialist. We will continue to provide general supportive care, GI and DVT prophylaxis. Further orders per attending MD and hospital course. 05/13/2024: For now, going to continue current management for the patient. We will continue to monitor the patient's respiratory status and pulmonary toileting. We will continue to follow the hemodynamics and treat accordingly. I am going to consult the speech therapist to evaluate the patient's swallowing and recommend feedings. Renal parameter shows slight worsening and electrolytes with no major derangements. The patient was started on IV Merrem and is guided by the Infectious Disease specialist. We will continue to monitor the coags. We will address rehabilitative needs once his acute condition is stabilized. The patient continues with extreme high risk of mortality and very poor prognosis. Family members are still contemplating palliative/hospice care. We will monitor the patient's progress and response to management. We will continue to provide general supportive care, GI and DVT prophylaxis. Further orders per attending MD and hospital course. 05/14/2024: For now, going to continue current management for the patient. He will continue on Lasix drip per the protocol. He will continue on Levophed and Precedex drip. The patient also is on octreotide and Protonix. For antibiotic coverage he will continue on IV Merrem. Family members have agreed on hospice care. We will place case management consultation. No new complaint. NEURO: Minimize central acting medications as possible. Fall Precautions. Well lighted room through the day and minimize interruptions through the night to prevent acute delirium. PULMONARY: Supplemental 02 as needed Titrate Fio2 to keep Spo2 > or = 90% DuoNebs and CPT as needed IS hourly while awake for pulmonary hygiene Out of bed to chair as tolerated CARDIOVASCULAR: Follow hemodynamics. Titrate vasopressor to keep MAP >65 or systolic blood pressure >95mmHg DIPS: As mentioned above LINES: Peripheral IVs GI & NUTRITION: Continue nutritional support Aspirations precautions Prokinetic agents and laxatives as needed KIDNEYS & ELECTROLYTES: Strict monitoring of intake and output Daily weights Avoid nephrotoxic agents Monitor electrolytes and replace as needed Goal urine output of 30mL/hr or 0.5mL/kg/hr Urine output: 1850 Fluid Balance: -846.5 ENDOCRINE: Maintain blood glucose between 100-180 at all times. Insulin sliding scale for blood glucose management INFECTIOUS DISEASE: Trend temperature. Zapata-culture if febrile. Micro: Blood cultures showing no growth. Antibiotics: Meropenem HEMATOLOGY & COAGULATION: Monitor H&H. Keep Hgb > 7 Transfuse 1 unit of PRBC for Hgb < 7 Transfuse 1 pack of platelets of platelets < 20, 000 Watch for any signs and symptoms of bleeding SKIN: Pressure ulcer prevention per facility protocol Rehab: PT/OT once acute phase has been stabilized. Prophylaxis: GI: Protonix DVT: Not a candidate for systemic anticoagulation Code Status: Full Resuscitation Disposition: ICU Case was discussed and seen with my supervising physician. The above plan was formulated and agreed upon. Total critical care time: 35 min CARLOS MANUEL NOE NP May 14, 2024 18:34
--- NOTE | 2024-05-14 19:33 | NUR ---
HAND OFF REPORT GIVEN TO QUAN ABBOTT
--- NOTE | 2024-05-14 21:04 | PN ---
INFECTIOUS DISEASE FOLLOWUP NOTE DATE OF SERVICE: 05/13/2024. SUBJECTIVE: The patient is seen and examined at bedside today. No fever, no chills. Awake, alert in ICU, still on vasopressor. The patient still has pain to the lower extremities. Appetite remained poor. No rashes, no itchiness. No joint swelling or redness. Daughter was updated at the bedside. The patient remained on antibiotic. The patient is still on octreotide drip. PHYSICAL EXAMINATION: VITAL SIGNS: Temperature 98.6. EYES: No icterus. Pupils equal and reactive. HENT: No oral thrush seen. Moist oral mucosa. NECK: Supple. No JVD or thyromegaly. LUNGS: Good air entry. No rales. No rhonchi. CARDIOVASCULAR SYSTEM: S1, S2 regular. No murmur heard. ABDOMEN: Soft, nontender. Bowel sounds are present. CENTRAL NERVOUS SYSTEM: The patient is awake, alert, bedbound debility. SKIN: No rashes, no itchiness. LYMPHATIC: No peripheral lymphadenopathy. BACK: No deformity. Stage III ulcer in sacrococcygeal area. HEMATOLOGIC: No bleeding or petechial lesions seen. EXTREMITIES: Wound involving the right lower leg. ASSESSMENT: An 83-year-old male admitted with weakness and fatigue. Current problems include: * . * Gastrointestinal bleed. * Anemia. * Renal failure. * Hyperkalemia, stable. * Dementia. * Debility. PLAN: * Continue . * Continue Protonix. * Continue antidiabetic. * Monitor electrolytes. * Continue vasopressor. * Continue ventilatory support. * The patient will follow up closely. TID: [id number] RECEIPT: [id number]
[2024-05-15] VITALS (18 sets, daily range): BP systolic 95–159; BP diastolic 31–86; PULSE 64–86; RESP 12–28; TEMP 97–98.4; O2SAT 96–99
[2024-05-15 05:31] LABS: MEAN CORPUSCULAR HEMOGLOBIN 28.7 pg (27.0-33.0); MEAN CORPUSCULAR HGB CONC 31.6 g/dL (32.0-36.0); MEAN CORPUSCULAR VOLUME 90.9 fL (79-99); RED BLOOD CELL COUNT(AUTO) 2.75 MIL/uL (4.50-6.20); RED CELL DISTRIBUTION WIDTH 19.8 % (11.0-15.5); WHITE BLOOD COUNT (AUTO) 10.3 K/uL (4.8-10.8)
[2024-05-15 05:42] LABS: CREATININE 3.7 mg/dL (0.5-1.3); MAGNESIUM 1.8 mg/dL (1.80-2.40); POTASSIUM 3.2 mmol/L (3.5-5.1)
--- NOTE | 2024-05-15 08:39 | NUR ---
ss f/u Sw spoke to nurse Emiliana. Family continues to flip flop regarding hospice. No family at bedside at this time. Sw to revisit when family at bedside
--- NOTE | 2024-05-15 09:20 | NUR ---
[facility] SW met with pt's and daughter. Family is in agreement with starting hospice. signed withdrawal of care paperwork and is in agreement with comfort measures. SW called Lisandro at [facility] and notified family is ready to start hospice care.
--- NOTE | 2024-05-15 09:34 | NUR ---
PT AND FAMILY HAVE DECIDED TO PURSE COMFORT CARE / DNR STATUS ONLY. DR TERAN MADE AWARE. CHEMISTRY QUALITY CONTROL ANALYST Steve EAGLE IS WORKING WITH FAMILY NOW FOR [facility]. DOES NOT WANT PT TO RETURN TO [facility]
--- NOTE | 2024-05-15 09:51 | NUR ---
GIP vs RETURN TO [place] WITH [facility] GISELL spoke to and daughter. Discussed Plan B should pt not meet criteria for GIP. Family wants pt to return to [place] with [facility]. GISELL spoke to Kandi, pt can return. Referral faxed to [phone] as requested. Pending [facility] to [facility] for GIP nurse Emiliana olivera
[2024-05-15] MEDS: hydroMORPHone 0.5 MG SYG (0.5MG/0.5ML) IVP PRN (10:04)
[2024-05-15] MEDS ORDERED: morPHINE 2 MG SYG IVP PRN ×2 (10:30→13:00)
[2024-05-15] MEDS ORDERED: LORazepam 2 MG/ML 1 ML VIAL IVP PRN ×2 (10:30→13:00)
--- NOTE | 2024-05-15 10:32 | PN ---
[facility] PROGRESS NOTE Date Patient Seen: May 15, 2024 Time of Visit: 10:31 Supervising Physician: Dr. Ashley Cruz Primary Care Physician: Dr. Sylvia Lane Outpatient Specialists: Seconds Handler: Angel Diaz MD Inpatient Consults: Cardiology PROBLEM LIST: Acute NSTEMI POA Cardiogenic shock POA. Acute GI bleed POA, probably secondary to oral anticoagulation therapy. . Acute blood loss anemia Acute sepsis from unknown source POA. Acute constipation POA. Acute on chronic combined systolic and diastolic congestive heart failure Paroxysmal atrial fibrillation on chronic anticoagulation with Eliquis, to be on hold Hyperkalemia. HTN HLD DM2 CKD stage IIIB CAD s/p CABG in the remote past Recurrent CVAs JACK hx R CEA Pulmonary hypertension Dementia INTERVAL HISTORY: 05/09/24: HPI: This is a 83-year-old male patient who is not a good historian due to his current condition, age in mental status. He resides at a local halfway facility [place]. The patient has past medical history that is significant for HTN, HLD, DM2, CKD stage IIIB, CAD s/p CABG ecurrent CVA with new onset right side weakness, JACK hx R CEA, Paroxysmal atrial fibrillation on chronic anticoagulation with Eliquis, chronic combined systolic/diastolic heart failure, NSTEMI, and dementia. The patient was sent from the halfway facility via EMS due to report of coffee-ground emesis and abdominal discomfort. Upon entry to the emergency department, vital signs was significant for hypotension systolic of 80/42 that had started since the morning. Of note, the patient is on anticoagulation therapy with apixaban and antiplatelet therapy with Plavix which may have been the culprit. ED workup showed laboratory data indicating a WBC of 11.6, H&H 7.24/22.7 and a platelet count of 238. Chemistry panel was significant for a elevated potassium of 5.4, BUN 59, creatinine of 2.9 and a GFR of 21. Keaton troponin of 1870 and a BNP of 1140. Imaging of the chest showed bilateral pulmonary infiltrates and abdomen showed bilateral pleural effusions with compressive atelectasis. Gastric distention with small bowel dilatation and fluid filled may be related to enteritis. There was large amount of fecal material seen in the colon and there was also presence of diverticulosis. Because of the above findings, the patient was admitted for further inpatient evaluation and management of his condition. BIS gum cook was consulted due to the GI bleed with subsequent hypotension requiring vasopressor therapy. 05/10/2024: At the time of my evaluation, the patient was lying in bed. Per t he staff nurse, no acute events overnight. Vital signs obtained were stable. Laboratory data of significance showed a WBC count of 18.6, H and H 7.4/22.4 and a platelet count of 242. Chemistry panel showed a sodium of 141, potassium 5.2, chloride 107, CO2 of 20, BUN is 66, creatinine of 3.4, random glucose of 322 total calcium of 8.4. And increased troponin to 9057. The patient continues on octreotide and pantoprazole infusion. He is also on meropenem for antibiotic coverage. He continues on vasopressin and norepinephrine drip. No other complaint. 05/11/2024: At the time of my evaluation, the patient was lying in bed. He remains on Lasix., also on vasopressin and norepinephrine. He was given Precedex for anxiolytic management currently, the patient is on IV antibiotics guided by the Infectious Disease specialist and continue on Protonix and octreotide drip. He still remains critically ill. Family members were present at the bedside. No new complaints. 05/12/2024: At the time of my evaluation, the staff nurse reports no acute events overnight. Vital signs was generally stable. Laboratory data shows low trending H and H 7.3/22.8 count , platelet count of 206. Chemistry panel showed elevated renal parameters with a BUN of 7.6, creatinine of 3.5 and a GFR of 17. No new complaint. 05/13/2024: At the time of my evaluation, the patient was lying in bed. He is awake but generally confused. He is able to follow simple commands. Respiratory marrero, the patient is breathing on room air. Staff nurse reports that the patient was noted coughing with his feedings and with meds. 24 hour I & O: Urine output of a 625 mL with a positive balance of 992.2 ML Pressors: Levophed, vasopressin, Precedex Drips: Octreotide, pantoprazole injection, Lasix Antibiotics/antiviral: Meropenem Microbiology data: No growth Imaging data: No new imaging for review today Pathology data: None 05/14/2024: At the time of my evaluation, the patient is lying bed. Family members are visiting with the patient. He offers no new complaint. Today, vital signs are stable. Laboratory data showed a WBC of 8.8. H and H 7.3/23.4 and a platelet count of 201. Chemistry panel showed a increasing sodium, today 149, potassium 3.5, chloride 115, CO2 of 22, BUN of 71, creatinine of 3.6 and a calcium of 7.7. BNP level today 3680. Chest x-ray today showing pulmonary edema. No other complaint. 05/15/2024: At the time my evaluation, the patient was lying in bed. Case management was consulted for hospice care under pending decision. No new complaint. REVIEW OF SYSTEMS: 12 point ROS reviewed with patient. Pertinent positives mentioned above. Otherwise negative. PHYSICAL EXAM: GENERAL: alert, weak, awake oriented x 3 HEENT: EOMI, Sclera non icteric, moist mucosa NECK: Supple, no JVD, trachea midline LUNGS: Diminished lung sounds. No wheezes HEART: Regular rate and rhythm. Normal S1 and S2, without murmurs ABD: Abdomen soft, nontender. Bowel sounds present EXT: No clubbing cyanosis or edema NEURO: Alert and oriented to person, able to follow simple commands Vital Signs (last 8hr) Date Time Temp Pulse Resp B/P (MAP) Pulse Ox O2 Delivery O2 Flow Rate FiO2 05/15/24 06:29 80 18 N/Cannula Low lpm 3.0 32 05/15/24 06:28 80 18 05/15/24 04:00 97.0 79 22 159/86 (110) 99 154/41 (78) 05/15/24 04:00 98 CPAP+ 50 05/15/24 03:00 64 12 110/48 (68) 99 140/38 (72) LABS: Hematology Labs: Test 05/15/24 05:10 Range/Units White Blood Count 10.3 4.8-10.8 K/uL Red Blood Count 2.75 L 4.50-6.20 MIL/uL Hemoglobin 7.9 L 14.0-18.0 g/dL Hematocrit 25.0 L 42-54 % Mean Corpuscular Volume 90.9 79-99 fL Mean Corpuscular Hemoglobin 28.7 27.0-33.0 pg Mean Corpuscular Hemoglobin Concent 31.6 L 32.0-36.0 g/dL Red Cell Distribution Width 19.8 H 11.0-15.5 % Platelet Count 249 130-400 K/uL Mean Platelet Volume 10.6 H 7.5-10.5 fL Nucleated Red Blood Cells 0.0 0.0-0.19 % Chemistry Labs: Test 05/15/24 05:33 05/15/24 05:10 05/14/24 04:27 Range/Units Whole Blood Glucose 125 H 70-110 MG/DL Sodium Level 152 H 136-145 mmol/L Potassium Level 3.2 L 3.5-5.1 mmol/L Chloride Level 117 H 101-111 mmol/L Carbon Dioxide Level 24 21-32 mmol/L Blood Urea Nitrogen 71 H 7-18 mg/dL Creatinine 3.7 H 0.5-1.3 mg/dL Glomerular Filtration Rate Calc 16 >90 mL/min Random Glucose 123 H 70-105 mg/dL Total Calcium 7.8 L 8.5-10.1 mg/dL Magnesium Level 1.80 1.80-2.40 mg/dL B-Type Natriuretic Peptide 4420 H 0-100 pg/mL Total Bilirubin 0.4 0.2-1.0 mg/dL Aspartate Amino Transf (AST/SGOT) 40 H 10-37 U/L Alanine Aminotransferase (ALT/SGPT) 154 H 12-78 U/L Alkaline Phosphatase 99 50-136 U/L Total Protein 5.2 L 6.0-8.3 g/dL Albumin 1.7 L 3.5-5.0 g/dL DIAGNOSTICS / RADIOLOGY RESULTS: [ ] PLAN 05/09/24: The patient was admitted and BAL was consulted for ICU upgrade. The patient was started on Levophed. In the emergency department, the patient did receive fluid resuscitation with IV NS 1 L bolus. The patient did receive a d ose of IV Rocephin. I am going to continue with IV cefepime, we will request blood cultures x2. We will request a MRSA nasal swab. We will order additional vasopressor therapy if hypotension persists. We will monitor the H&H and we will transfuse as necessary. Orders are in place for occult blood in stool. The patient will remain nothing by mouth. We will monitor the trend and maintain map above 65. We will follow the troponins x2 more sets. Cardiology consult is in place as well as Nephrology consultation. Patient was started on antibiotic therapy. Going to repeat surveillance labs in the morning. We will continue provide general supportive care, GI and DVT prophylaxis. Further orders per attending MD and hospital course. 05/10/2024: For now, we are going to continue current management for the patient. We will continue antibiotic coverage as ordered. We will continue to monitor the H&H and we will transfuse as necessary. The patient continue on pressor therapy and may require central line placement. Gastroenterology was consulted on the case and awaiting patient's stability to take the patient for endoscopic evaluation. In the meantime, the patient will continue on octreotide and Protonix. We will follow the recommendation of the turf and grounds supervisor. Patient currently not a candidate for blood thinners/anti-platelet therapy. Because of the low blood pressure trend we will avoid metoprolol and HIMANSHU inhibitors. We will monitor the patient's progress and response to management. We will continue to provide general supportive care, GI and DVT prophylaxis. Further orders per attending MD and hospital course. 05/11/2024: For now, we are going to continue the patient management. He will continue on antibiotic therapy as ordered, Lasix drip and pressor therapy with addition of anxiolytic Precedex. for hypotension management. I am going to repeat surveillance labs management to follow the H&H trend as well as the renal parameters. We will follow the recommendation treating specialist. The patient needs to undergo EGD as colonoscopy evaluation. Unfortunately he is not stable enough to undergo this procedure. We will await for clearance. Patient complains of involuntary lower extremity muscular spasms. He was started on baclofen 5 mg p.o. b.i.d. we will follow management. Appreciate the input of the treating specialist. We will continue to provide general supportive care, GI and DVT prophylaxis. Further orders per attending MD and hospital course. 05/12/2024: For now, we are going to continue current management for the patient. Per the wash oil cooler operator, the patient is not a candidate for any cardiac interventions due to his renal condition. Also, the patient is not a candidate for any gastroenterology intervention due to his NSTEMI. The patient extreme high risk of mortality and very poor prognosis. Recommended consider palliative/hospice care. We will continue current management for the patient and follow the recommendation of the treating specialist. We will continue to provide general supportive care, GI and DVT prophylaxis. Further orders per attending MD and hospital course. 05/13/2024: For now, going to continue current management for the patient. We will continue to monitor the patient's respiratory status and pulmonary toilet ing. We will continue to follow the hemodynamics and treat accordingly. I am going to consult the speech therapist to evaluate the patient's swallowing and recommend feedings. Renal parameter shows slight worsening and electrolytes with no major derangements. The patient was started on IV Merrem and is guided by the Infectious Disease specialist. We will continue to monitor the coags. We will address rehabilitative needs once his acute condition is stabilized. The patient continues with extreme high risk of mortality and very poor prognosis. Family members are still contemplating palliative/hospice care. We will monitor the patient's progress and response to management. We will continue to provide general supportive care, GI and DVT prophylaxis. Further orders per attending MD and hospital course. 05/14/2024: For now, going to continue current management for the patient. He will continue on Lasix drip per the protocol. He will continue on Levophed and Precedex drip. The patient also is on octreotide and Protonix. For antibiotic coverage he will continue on IV Merrem. Family members have agreed on hospice care. We will place case management consultation. No new complaint. 05/15/2024: For now continue current management for the patient. We are awaiting final decision/acceptance for hospice care at which time, the patient will be transitioned to hospice services. The patient will possibly transfer out of the ICU today. NEURO: Minimize central acting medications as possible. Fall Precautions. Well lighted room through the day and minimize interruptions through the night to prevent acute delirium. PULMONARY: Supplemental 02 as needed Titrate Fio2 to keep Spo2 > or = 90% DuoNebs and CPT as needed IS hourly while awake for pulmonary hygiene Out of bed to chair as tolerated CARDIOVASCULAR: Follow hemodynamics. Titrate vasopressor to keep MAP >65 or systolic blood pressure >95mmHg DIPS: As mentioned above LINES: Peripheral IVs GI & NUTRITION: Continue nutritional support Aspirations precautions Prokinetic agents and laxatives as needed KIDNEYS & ELECTROLYTES: Strict monitoring of intake and output Daily weights Avoid nephrotoxic agents Monitor electrolytes and replace as needed Goal urine output of 30mL/hr or 0.5mL/kg/hr ENDOCRINE: Maintain blood glucose between 100-180 at all times. Insulin sliding scale for blood glucose management INFECTIOUS DISEASE: Trend temperature. Zapata-culture if febrile. Micro: Blood cultures showing no growth. Antibiotics: Meropenem HEMATOLOGY & COAGULATION: Monitor H&H. Keep Hgb > 7 Transfuse 1 unit of PRBC for Hgb < 7 Transfuse 1 pack of platelets of platelets < 20, 000 Watch for any signs and symptoms of bleeding SKIN: Pressure ulcer prevention per facility protocol Rehab: PT/OT once acute phase has been stabilized. Prophylaxis: GI: Protonix DVT: Not a candidate for systemic anticoagulation Code Status: Full Resuscitation Disposition: ICU Case was discussed and seen with my supervising physician. The above plan was formulated and agreed upon. Total critical care time: 35 min CARLOS MANUEL NOE NP May 15, 2024 10:32
[2024-05-15] MEDS ORDERED: acetaMINOPHEN 650 MG SUPPOSITORY RC PRN ×2 (11:00→13:00)
--- NOTE | 2024-05-15 11:13 | PN ---
NEPHROLOGY FOLLOWUP SUBJECTIVE: No major events reported. The patient remains in the intensive care unit. OBJECTIVE: GENERAL: He is not in any acute distress. He is awake, alert. VITAL SIGNS: Blood pressure 114/45, respirations 12, pulse 69, temperature 98.8. LUNGS: Clear to auscultation. HEART: Normal cardiac sound. ABDOMEN: Soft, nondistended. EXTREMITIES: No edema. LABORATORY DATA: Sodium 139, potassium 3.5, BUN 71, creatinine of 3.6, albumin 1.7. ASSESSMENT: * Acute kidney injury on chronic kidney disease. There is no improvement on the kidney function as such. Current serum creatinine is 3.7. The etiology of the acute kidney injury is acute tubular necrosis caused by hypovolemia. * Diabetes mellitus type 2. * Anemia. * Hyperkalemia, which has been corrected. * Dehydration. * Metabolic acidosis. * Severe protein-caloric malnutrition with an albumin of 1.7. Continue monitor nutritional status. PLAN: Plan is to continue current management. Monitor electrolytes. Avoid nephrotoxic agents. Start by continue bicarbonate for the management of acidosis. Current bicarbonate is 23. TID: [id number] RECEIPT: [id number]
--- NOTE | 2024-05-15 11:16 | NUR ---
[facility] REFERRAL NUMBER [id number]. RULE OUT DUE TO AGE- NOTIFY [facility] WITH TIME OF
--- NOTE | 2024-05-15 11:25 | NUR ---
TRANSFERRED TO ROOM 425- HAND OFF REPORT WAS GIVEN TO NEVIN ABBOTT
--- NOTE | 2024-05-15 11:54 | PN ---
INFECTIOUS DISEASE FOLLOWUP NOTE DATE OF SERVICE: 05/14/2024 SUBJECTIVE: The patient is seen and examined at bedside today. No fever. No chills. No nausea or vomiting. Remained in the ICU. The patient is on vasopressor. No diarrhea. No bleeding tendency. No rashes or itchiness. No joint swelling. Remained on octreotide drip. No family at the bedside at this time. PHYSICAL EXAMINATION: VITAL SIGNS: Temperature today 98.7. EYES: No icterus. Pupils equal and reactive. HENT: Thrush seen. Moist oral mucosa. NECK: Supple, no JVD or thyromegaly. LUNGS: Good air entry. No rales, no rhonchi. CARDIOVASCULAR: S1, S2 regular. No murmur heard. ABDOMEN: Full, soft, nontender. Bowel sound is present. CENTRAL NERVOUS SYSTEM: Awake, alert, bedbound debility. SKIN: No rashes, no itchiness. LYMPHATIC: No peripheral lymphadenopathy. BACK: No deformity, no pressure ulcer. MUSCULOSKELETAL: Nontender. GENITOURINARY: Gay catheter in place. No hematuria. ASSESSMENT: An 83-year-old male with multiple problems include: * Septic shock. * Hysterectomy. * Gastrointestinal bleed. * Acute on chronic renal failure. * Hyperkalemia. * Dementia. * Anemia. * Debility. PLAN: * Continue pain management. * Continue Lasix. * Continue octreotide drip. * Continue Protonix. * Continue antidiabetic. * Monitor electrolytes. * Continue GI prophylaxis. * Continue ventilator support. TID: [id number] RECEIPT: [id number]
[2024-05-15] MEDS ORDERED: morPHINE 2 MG SYG IVP SCH (13:00)
[2024-05-15] MEDS ORDERED: BisaCODYL 10 MG SUPP.RECT RC PRN (13:00)
[2024-05-15] MEDS ORDERED: ondanSETRON 4MG INJ IVP PRN (13:00)
--- NOTE | 2024-05-15 22:09 | DS ---
Discharge Summary Hospital Course This is an 83-year-old male with history of CHF, diabetes mellitus, hypertension, atrial fibrillation, on anticoagulation, who was brought in from longterm with coffee-ground emesis. The patient has no fever or chills. Patient had multiple episodes of vomiting and was sent to the Emergency Room for further evaluation. In the ER patient was found with hemoglobin of 7.2. Troponin was elevated at 1870. The patient is awake but a poor historian. The patient has had recurrent admissions for NSTEMI. Was seen by Cardiology last month and was found not to be a candidate for cardiac catheterization and medical management was recommended. Hemoglobin today is 7.9 today. Renal function continues to decline and the BUN is 71 and a creatinine of 3.7. Goals of care were discussed and family has agreed for comfort measures only. Patient is being transferred to hospice services. FINAL DISCHARGE DIAGNOSIS: Gastrointestinal bleeding. Pneumonia. Hypotension. [id number] myocardial infarction. Severe Anemia, requiring blood transfusion. Acute on chronic renal failure. Diabetes mellitus. Muscle spasms. PLAN: Patient has been transferred to hospice care. This case was reviewed and discussed with my supervising physician and the above assessment and plan was formulated and agreed upon. ATTESTATION BY PHYSICIAN I have seen and examined the patient. I reviewed the documentation, medical decision making, and treatment plan as noted by the mid-level provider above. I agree with the findings and plan of care. AURORA TERAN MD, MIRTA L [facility] May 15, 2024 22:09
--- NOTE | 2024-05-17 21:46 | PN ---
Subjective Review of Systems PROGRESS NOTE Date of Visit: May 17, 2024 Time of Visit: 21:42 Events since last encounter lethargic Subjective poor historian Objective Vitals and I/O Vital Sign (Last 24 Hours) 05/15/24 05/15/24 05/15/24 08:00 10:00 11:30 Temp 97.0 Pulse 77 Resp 14 B/P (MAP) 130/52 (78) Pulse Ox 97 O2 Delivery Nasal Cannula* O2 Flow Rate 3 FiO2 32 General: Other (lethargic) Lungs: Other (distant breath sounds) Heart: Regular rate, Regular rhythm Abdomen: Normal bowel sounds, Soft Extremities: No edema Psych/Mental Status: Other (mildly arousable) Results RADIOLOGY: [] EKG: [] Medications Current Medications Sodium Chloride 1,000 ml @ 0 mls/hr ONCE ONCE IV Last administered on 05/09/24at 11:05; Start 05/09/24 at 10:30; Stop 05/09/24 at 10:31; Status DC Pantoprazole Sodium 40 mg ONCE ONCE IVP Last administered on 05/09/24at 11:21; Start 05/09/24 at 11:00; Stop 05/09/24 at 11:01; Status DC Ceftriaxone Sodium 1 gm ONCE ONCE IVPB Last administered on 05/09/24at 11:21; Start 05/09/24 at 11:00; Stop 05/09/24 at 11:01; Status DC Sodium Chloride 1,000 ml @ 0 mls/hr ONCE ONCE IV Last administered on 05/09/24at 11:19; Start 05/09/24 at 11:30; Stop 05/09/24 at 11:27; Status DC Norepinephrine 250 ml @ 0 mls/hr PROTOCOL IV Last administered on 05/10/24at 15:17; Start 05/09/24 at 11:30; Stop 05/10/24 at 17:04; Status DC Albuterol 1 UDVIAL ONCE ONCE IH Last administered on 05/09/24at 11:51; Start 05/09/24 at 12:00; Stop 05/09/24 at 12:01; Status DC Insulin Human Regular INSULIN SLIDING SCAL... ACHS SQ Last administered on 05/10/24at 07:38; Start 05/09/24 at 16:30; Stop 05/11/24 at 16:59; Status DC Octreotide Acetate 1250 mcg/ Sodium Chloride 250 ml @ 0 mls/hr PROTOCOL IV Last administered on 05/13/24at 12:09; Start 05/09/24 at 12:30; Stop 05/15/24 at 10:48; Status DC Pantoprazole Sodium 40 mg BID IVP Last administered on 05/15/24at 08:55; Start 05/09/24 at 21:00; Stop 05/15/24 at 10:48; Status DC Dextrose/Sodium Chloride 1,000 ml @ 50 mls/hr Q20H IV Last administered on 05/09/24at 14:19; Start 05/09/24 at 12:30; Stop 05/10/24 at 16:27; Status DC Vasopressin 20 units/Sodium Chloride 100 ml @ 0 mls/hr PROTOCOL IV Last administered on 05/10/24at 06:11; Start 05/09/24 at 20:00; Stop 05/10/24 at 17:04; Status DC Vasopressin 20 units STK-MED ONCE .ROUTE; Start 05/09/24 at 21:13; Stop 05/09/24 at 21:13; Status DC Cefepime HCl 1 gm DAILY IVPB Last administered on 05/09/24at 22:00; Start 05/10/24 at 09:00; Stop 05/10/24 at 13:15; Status DC Cefepime HCl 1 gm STK-MED ONCE .ROUTE; Start 05/09/24 at 21:59; Stop 05/09/24 at 2 2:00; Status DC Lactulose 20 gm DAILY PRN PO Last administered on 05/10/24at 10:58; Start 05/10/24 at 09:30; Stop 05/15/24 at 10:48; Status DC Meropenem 1 gm/ Sodium Chloride 100 ml @ 33.333 mls/ hr Q12H IV; Start 05/10/24 at 14:00; Stop 05/10/24 at 13:16; Status DC Meropenem 1 gm Q24H IVPB Last administered on 05/14/24at 13:22; Start 05/10/24 at 13:30; Stop 05/15/24 at 10:48; Status DC Docusate Sodium 100 mg DAILY PO; Start 05/11/24 at 09:00; Stop 05/15/24 at 10:48; Status DC Ferrous Sulfate 325 mg DAILY PO Last administered on 05/14/24at 08:37; Start 05/11/24 at 09:00; Stop 05/15/24 at 10:48; Status DC Miscellaneous Medication 1 tab DAILY PO; Start 05/11/24 at 09:00; Stop 05/10/24 at 13:42; Status DC Pharmacy Profile Note 1 each ONCE MISC; Start 05/10/24 at 14:00; Stop 05/10/24 at 13:42; Status DC Dexmedetomidine/ Sodium Chloride 400 mcg PROTOCOL IV Last administered on 05/13/24at 23:29; Start 05/10/24 at 16:00; Stop 05/15/24 at 10:48; Status DC Dexmedetomidine/ Sodium Chloride 400 mcg STK-MED ONCE IV; Start 05/10/24 at 15:43; Stop 05/10/24 at 15:44; Status DC Dextrose 50 ml STK-MED ONCE IV Last administered on 05/10/24at 16:04; Start at 15:55; Stop 05/10/24 at 15:55; Status DC Dextrose/Lactated Ringer's 1,000 ml @ 50 mls/hr Q20H IV Last administered on 05/15/24at 06:07; Start 05/10/24 at 16:30; Stop 05/15/24 at 10:48; Status DC Vasopressin 40 units/Sodium Chloride 40 ml @ 0 mls/hr PROTOCOL IV; Start 05/10/24 at 16:59; Stop 05/10/24 at 18:49; Status DC Norepinephrine Bitartrate 0.1 mcg/kg/ minute PROTOCOL IV; Start 05/10/24 at 16:59; Stop 05/10/24 at 18:49; Status DC Norepinephrine 250 ml @ 0 mls/hr PROTOCOL IV Last administered on 05/11/24at 23:26; Start 05/10/24 at 18:00; Stop 05/11/24 at 23:28; Status DC Norepinephrine 250 ml @ As Directed STK-MED ONCE IV; Start 05/10/24 at 17:37; Stop 05/10/24 at 17:38; Status DC Lactated Ringer's 500 ml BOLUS STAT IV Last administered on 05/10/24at 18:16; Start 05/10/24 at 17:57; Stop 05/10/24 at 18:00; Status DC Dextrose 50 ml STK-MED ONCE IV Last administered on 05/10/24at 18:16; Start 05/10/24 at 18:04; Stop 05/10/24 at 18:05; Status DC Sodium Chloride 154 meq/Dextrose 1,000 ml @ 50 mls/hr Q20H STAT IV; Start 05/10/24 at 18:49; Stop 05/10/24 at 18:52; Status DC Vasopressin 20 units/Sodium Chloride 100 ml @ 0 mls/hr PROTOCOL IV Last administered on 05/12/24at 22:11; Start 05/10/24 at 19:00; Stop 05/15/24 at 10:48; Status DC Dextrose 1,000 ml @ 50 mls/hr Q20H IV Last administered on 05/10/24at 19:07; Start 05/10/24 at 19:00; Stop 05/11/24 at 14:59; Status DC Wound Care/ Dressing Products BID TP; Start 05/11/24 at 09:00; Stop 05/11/24 at 07:54; Status DC Wound Care/ Dressing Products 1 JULIA AD TID PRN TP Last administered on 05/12/24at 14:49; Start 05/11/24 at 08:00; Stop 05/15/24 at 13:12; Status DC Furosemide 100 mg/ Sodium Chloride 100 ml @ 0 mls/hr PROTOCOL IV Last administered on 05/14/24at 09:41; Start 05/11/24 at 11:30; Stop 05/15/24 at 10:48; Status DC Hydromorphone HCl 0.5 mg Q6H PRN IVP Last administered on 05/14/24at 11:43; Start 05/11/24 at 14:00; Stop 05/14/24 at 16:14; Status DC Sodium Bicarbonate 650 mg BID PO Last administered on 05/14/24at 08:37; Start 05/11/24 at 21:00; Stop 05/15/24 at 10:48; Status DC Insulin Human Regular INSULIN SLIDING SCAL... Q6H SQ Last administered on 05/15/24at 00:59; Start 05/11/24 at 18:00; Stop 05/15/24 at 10:48; Status DC Nystatin apply to bilateral axilla TID TP Last administered on 05/15/24at 08:59; Start 05/11/24 at 21:00; Stop 05/15/24 at 13:12; Status DC Norepinephrine Bitartrate start 0.1 mcg PROTOCOL IV Last administered on 05/13/24at 08:30; Start 05/11/24 at 23:30; Stop 05/15/24 at 10:48; Status DC Baclofen 5 mg BID PO Last administered on 05/14/24at 08:37; Start 05/12/24 at 15:00; Stop 05/15/24 at 10:48; Status DC Acetaminophen 1,000 mg ONCE ONCE IVPB Last administered on 05/12/24at 14:41; S tart 05/12/24 at 14:30; Stop 05/12/24 at 14:33; Status DC Dextrose 50 ml STK-MED ONCE IV Last administered on 05/13/24at 04:02; Start 05/13/24 at 03:50; Stop 05/13/24 at 03:51; Status DC Hydromorphone HCl 0.5 mg Q4HPRN PRN IVP Last administered on 05/15/24at 10:04; Start 05/14/24 at 16:30; Stop 05/15/24 at 10:48; Status DC Morphine Sulfate 2 mg Q1H PRN IVP; Start 05/15/24 at 10:30; Stop 05/15/24 at 12:53; Status DC Lorazepam 1 mg Q2H PRN IVP; Start 05/15/24 at 10:30; Stop 05/15/24 at 13:12; Status DC Acetaminophen 650 mg Q4H PRN RC; Start 05/15/24 at 11:00; Stop 05/15/24 at 13:12; Status DC Morphine Sulfate 2 mg AD IVP; Start 05/15/24 at 13:00; Stop 05/15/24 at 13:01; Status DC Morphine Sulfate MODERATE PAIN (4-6) = Morph... Q1H PRN IVP; Start 05/15/24 at 13:00; Stop 05/15/24 at 13:12; Status DC Lorazepam 1 mg Q2H PRN IVP; Start 05/15/24 at 13:00; Stop 05/15/24 at 12:51; Status DC Ondansetron HCl 4 mg Q6H PRN IVP; Start 05/15/24 at 13:00; Stop 05/15/24 at 13:12; Status DC Acetaminophen 650 mg Q4H PRN RC; Start 05/15/24 at 13:00; Stop 05/15/24 at 12:51; Status DC Bisacodyl 10 mg DAILY PRN RC; Start 05/15/24 at 13:00; Stop 05/15/24 at 13:12; Status DC Assessment/Plan ASSESSMENT: THIS IS A 83 YR OLD WOMAN WITH HISTORY OF Acute NSTEMI POA Cardiogenic shock POA. Acute on chronic renal failure. Hyperkalemia. Acute GI bleed POA, probably secondary to oral anticoagulation therapy. . Acute blood loss anemia Acute sepsis from unknown source POA. Acute constipation POA. Acute on chronic combined systolic and diastolic congestive heart failure Paroxysmal atrial fibrillation on chronic anticoagulation with Eliquis on hold Hyperkalemia. 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
== END 2024-05-15 11:59 | disposition hospice, home (50) | DRG 871 ==
LOC: EDH 09:55 → EDHIP 12:18 → 2CH 21:33 → 4DH 05-15 11:30
PROVIDERS: ADMIT Internal Medicine; ATTEND Internal Medicine
PROC: 5A09357 Assistance with Respiratory Ventilation, Less than 24 Consecutive Hours, Continuous Positive Airway Pressure (ICD-10-PCS; principal; 2024-05-09)
PROC: 30233N1 Transfusion of Nonautologous Red Blood Cells into Peripheral Vein, Percutaneous Approach (ICD-10-PCS; 2024-05-09)
DX: A41.9 Sepsis, unspecified organism (principal); E43 Unspecified severe protein-calorie malnutrition; I21.A1 Myocardial infarction type 2; I50.43 Acute on chronic combined systolic (congestive) and diastolic (congestive) heart failure; R57.0 Cardiogenic shock; N17.0 Acute kidney failure with tubular necrosis; J18.9 Pneumonia, unspecified organism; R65.21 Severe sepsis with septic shock; I13.0 Hypertensive heart and chronic kidney disease with heart failure and stage 1 through stage 4 chronic kidney disease, or unspecified chronic kidney disease; D68.9 Coagulation defect, unspecified; E87.20 Acidosis, unspecified; D62 Acute posthemorrhagic anemia; G93.40 Encephalopathy, unspecified; E87.5 Hyperkalemia; R53.81 Other malaise; E78.5 Hyperlipidemia, unspecified; E11.22 Type 2 diabetes mellitus with diabetic chronic kidney disease; N18.32 Chronic kidney disease, stage 3b; I25.10 Atherosclerotic heart disease of native coronary artery without angina pectoris; I48.0 Paroxysmal atrial fibrillation; F03.90 Unspecified dementia, unspecified severity, without behavioral disturbance, psychotic disturbance, mood disturbance, and anxiety; E66.9 Obesity, unspecified; L98.429 Non-pressure chronic ulcer of back with unspecified severity; E86.0 Dehydration; E86.1 Hypovolemia; Z95.1 Presence of aortocoronary bypass graft; Z99.3 Dependence on wheelchair; Z86.73 Personal history of transient ischemic attack (TIA), and cerebral infarction without residual deficits; Z79.01 Long term (current) use of anticoagulants; Z51.5 Encounter for palliative care; Z66 Do not resuscitate; Z79.02 Long term (current) use of antithrombotics/antiplatelets; Z79.82 Long term (current) use of aspirin; Z83.3 Family history of diabetes mellitus; Z99.81 Dependence on supplemental oxygen; Z68.28 Body mass index [BMI] 28.0-28.9, adult
CPT/HCPCS: 36415; 71045; 74176; 80048; 80053; 82140; 82270; 82435; 82550; 82803; 82947; 82948; 83036; 83605; 83735; 83880; 84132; 84295; 84443; 84484; 85014; 85018; 85025; 85027; 85384; 85610; 85730; 86850; 86900; 86901; 86923; 87040; 87426; 87641; 93005; 93306; 94640; 94660; 96365; 96366; 96375; 99285; A4357; C1751; G0378; J0692; J0696; J1171; J1815; J1940; J2185; J2354; J2470; J3490; J7042; J7050; J7070; P9016; A4600